=== PATIENT | female | born 1940 | race Caucasian/White ===

== ENCOUNTER 2018-07-14 16:57 | Inpatient (IN) ==
[2018-07-14] MEDS ORDERED: MORPHINE IV ONE (18:40)
[2018-07-14] MEDS: NS 1,000 ML IV SCH (19:10)
[2018-07-14 19:31] LABS: BASO# 0.01 X1000 (0.0-0.2); BASO% 0.1 % (0.0-0.8); HEMATOCRIT 20.2 % (37.0-47.0); HEMOGLOBIN 6.3 g/dL (12.0-16.0); IMM GRAN# 0.27 X1000 (0.0-0.04); IMM GRAN% 1.7 % (0.0-0.5); LYMPH# 0.73 X1000 (1.2-3.4); LYMPH% 4.5 % (20.5-51.1); MCH 27.5 PG (27-31); MCHC 31.2 g/dL (33-37); MCV 88.2 FL (81-99); MONO# 0.54 X1000 (0.11-0.59); MONO% 3.3 % (1.7-9.3); MPV 8.6 FL (7.4-10.4); NEUT# 14.76 X1000 (1.4-6.5); NEUT% 90.4 % (42.2-75.2); PLT 365 X1000 (130-400); RBC 2.29 XMIL (4.2-5.4); RDW 16.6 % (11.5-14.5); WBC 16.31 X1000 (4.8-10.8)
[2018-07-14 20:00] LABS: ALBUMIN 2.8 g/dL (3.5-5.0); CALCIUM 8.4 mg/dL (8.8-10.2); CREATININE 1.7 mg/dL (0.5-0.9); TOTAL BILIRUBIN 0.3 mg/dL (0.20-1.00); TOTAL PROTEIN 6.4 g/dL (6.3-8.3)
[2018-07-14 20:00] LABS: OCCULT BLOOD 1 NEGATIVE (NEGATIVE)
[2018-07-14 20:04] LABS: BILIRUBIN URINE NEGATIVE (NEGATIVE); BLOOD URINE 2+ (NEGATIVE); CLARITY VERY CLOUDY (CLEAR); COLOR YELLOW; GLUCOSE URINE NEGATIVE (NEGATIVE); KETONE URINE NEGATIVE (NEGATIVE); LEUKOCYTES URINE NEGATIVE (NEGATIVE); NITRITE URINE NEGATIVE (NEGATIVE); PROTEIN URINE 2+(100 mg/dL) mg/dL (NEGATIVE); UROBILINOGEN URINE NORMAL
[2018-07-14 20:10] LABS: URINE SOURCE CATH
[2018-07-14 20:11] LABS: URINE BACTERIA NEGATIVE /HFP; URINE CAST NONE SEEN /LPF; URINE CRYSTAL NONE SEEN /HPF; URINE EPITHELIAL CELLS <10 /HPF (<10); URINE RBC <10 /HPF (<10); URINE WBC <10 /HPF (<10); URINE YEAST NONE SEEN /HPF
[2018-07-14] MEDS ORDERED: ROCEPHIN 1 GM in NS 50 ML IV ONE (20:42)
[2018-07-14 21:38] LABS: INR 14.6; PROTIME 113.1 Seconds (11.0-16.0)
[2018-07-14] MEDS ORDERED: VITAMIN K PO ONE (22:05)
[2018-07-15] MEDS: NS 1,000 ML IV SCH ×4 (01:02→21:17)
[2018-07-15] MEDS ORDERED: MORPHINE IV ONE (01:35)
[2018-07-15 02:58] LABS: INR 3.62; PROTIME 37.7 Seconds (11.0-16.0)
--- NOTE | 2018-07-15 05:39 | Diag Imaging Result Doc PS360 ---
EXAM: CT ABD/PELVIS W/IV CONT ONLY HISTORY: abdominal pain TECHNIQUE: CT abdomen and pelvis with intravenous contrast COMPARISON: None. FINDINGS: There is a tiny left pleural effusion. There is a distal thoracic aortic stent with the distal thoracic aorta measuring approximately 4.2 x 3.9 cm. There is atelectasis in the left lower lobe. Small stones and sludge partially filling the gallbladder. No adjacent inflammation. There are small scattered hepatic cysts. There is also a tiny cyst within the spleen. A small amount of fluid is found about the liver and spleen. Normal pancreas and adrenal glands. The kidneys are atrophic. No hydronephrosis. Small left extrarenal pelvis and there are tiny renal cysts. Mixed density lesion in the right lower lateral abdominal wall measuring approximately 7.0 x 7.7 x 7.1 cm. There is a mixed density fluid level within. There are multiple smaller mixed density fluid collections along the anterior lower abdominal/pelvic wall. There is also a large mixed density fluid collection pelvis with a fluid fluid level. This large collection measures approximately 8.3 x 10.4 x 3.5 cm. This shows the bladder to the right. No bowel obstruction. The urinary bladder is only partly distended. The uterus has been removed. Prominent atherosclerosis. The aorta is mildly dilated measuring 3.2 cm in diameter distally. There is an inferior vena caval filter in good position. Surgical clips from the left inguinal region. Prominent right inguinal lymph node measuring 1.8 cm. Degenerative spine changes with mild scoliosis. Minimal subluxation of L4 on L5. IMPRESSION: 1.Multiple hematomas in the anterior and right lateral abdominal wall. There is an additional hematoma within the pelvis. 2.Small distal abdominal aortic aneurysm 3.Small amount of fluid about the liver and spleen 4.Small left pleural effusion 5.Cholelithiasis 6.Small scattered hepatic, renal, and splenic cysts 7.Atrophic kidneys 8.A preliminary report was given at 11:26 PM on 07/14/2018 This exam was performed using automated exposure control, adjustment of mA or kV according to patient size, and/or use of iterative reconstruction technique. Electronically signed by Mainor Bullard 07/15/2018 5:37 AM
[2018-07-15] MEDS: SYMBICORT 160/4.5 MICROGM INHALER INH SCH ×2 (07:51→20:25)
[2018-07-15] MEDS: LEXAPRO PO SCH (08:41)
[2018-07-15] MEDS: LAMICTAL PO SCH ×2 (08:41→21:16)
[2018-07-15] MEDS: ZONEGRAN PO SCH ×2 (08:41→21:17)
[2018-07-15] MEDS ORDERED: COREG PO SCH (09:00)
[2018-07-15] MEDS ORDERED: LASIX PO SCH (09:00)
[2018-07-15] MEDS ORDERED: MYRBETRIQ E.R. PO SCH (09:00)
[2018-07-15 10:08] LABS: HEMATOCRIT 13.3 % (37.0-47.0); HEMOGLOBIN 4.2 g/dL (12.0-16.0); MCH 28.2 PG (27-31); MCHC 31.6 g/dL (33-37); MCV 89.3 FL (81-99); MPV 8.3 FL (7.4-10.4); RBC 1.49 XMIL (4.2-5.4); RDW 16.6 % (11.5-14.5); WBC 17.28 X1000 (4.8-10.8)
[2018-07-15 10:38] LABS: ALBUMIN 2.5 g/dL (3.5-5.0); CALCIUM 7.6 mg/dL (8.8-10.2); CREATININE 2.3 mg/dL (0.5-0.9); POTASSIUM 4.1 mmol/L (3.5-5.1); TOTAL BILIRUBIN 0.3 mg/dL (0.20-1.00); TOTAL PROTEIN 5.6 g/dL (6.3-8.3)
[2018-07-15] MEDS ORDERED: NS 500 ML ONE (11:17)
[2018-07-15] MEDS ORDERED: NS 1,000 ML ONE (11:22)
[2018-07-15 12:00] LABS: INR 5.22; PROTIME 50.3 Seconds (11.0-16.0)
[2018-07-15 12:13] LABS: BILIRUBIN URINE NEGATIVE (NEGATIVE); BLOOD URINE 4+ (NEGATIVE); CLARITY BLOODY (CLEAR); COLOR RED; KETONE URINE TRACE mg/dL (NEGATIVE); LEUKOCYTES URINE NEGATIVE (NEGATIVE); NITRITE URINE NEGATIVE (NEGATIVE); SP GRAVITY URINE 1.005; UROBILINOGEN URINE NORMAL
[2018-07-15 12:14] LABS: URINE EPITHELIAL CELLS <10 /HPF (<10); URINE RBC TNTC /HPF (<10); URINE SOURCE CATH
--- NOTE | 2018-07-15 12:17 | HISTORY AND PHYSICAL ---
CHIEF COMPLAINT: Elevated INR. HISTORY OF PRESENT ILLNESS: This is a 77-year-old female with a history of CAD, aortic valve replacement on chronic anticoagulation, as well as chronic kidney disease with a baseline creatinine of 1.6. She presented to the emergency room to have her INR checked after being told it was high [facility]. Initial labs revealed INR was 14.6 with a hemoglobin of 6.3 and hematocrit of 20.2, She was given vitamin K 5 mg p.o. and 2 units of fresh frozen in the ER. Repeat INR 3.62. She reports being treated with Levaquin over the past week for a upper respiratory infection. CT scan of the abdomen and pelvis with IV contrast was performed, which revealed multiple hematomas in the abdominal wall, as well as a hematoma in the pelvis. She was admitted to the Medical/Surgical floor for further evaluation and treatment. PAST MEDICAL HISTORY: 1. CAD status post [place]. 2. Aortic valve replacement, on chronic anticoagulation. 3. Chronic kidney disease with a baseline creatinine 1.6. 4. Chronic obstructive pulmonary disease. 5. Hypertension. 6. History of bilateral lower extremity DVT. 7. Inferior vena caval filter. 8. Recent diagnosis of pneumonia, 07/10/2018, left lower lobe. PAST SURGICAL HISTORY: 1. Aortic valve replacement. 2. Stent for thoracic aortic aneurysm. 3. Coronary artery bypass graft. 4. Pacemaker placement. 5. Hysterectomy. 6. Bilateral shoulder repair. SOCIAL HISTORY: She lives with family members. She denies alcohol, tobacco, or illicit drug use. ALLERGIES: No known drug allergies. HOME MEDICATIONS: A list will be obtained by the nursing staff. Once verified, we will review and restart as appropriate. REVIEW OF SYSTEMS: Discussed with patient with pertinent positives stated in the HPI. She denied any syncope or dizziness, any chest pain, palpitations, any vomiting, diarrhea, black or bloody vomitus or stools, hematuria, dysuria, frequency, urgency. PHYSICAL EXAMINATION: GENERAL: This is a 77-year-old female, who is lying in the bed on the Medical/Surgical floor in no distress. VITAL SIGNS: Blood pressure is 91/44 with a heart rate of 80, respirations are 18, temperature is 97.7 degrees with room air saturations of 96% EYES: Pupils are equal, round, react to light. EOMs are intact. Sclerae anicteric. HENT: Head is normocephalic, atraumatic. Mucous membranes are moist. NECK: Supple with trachea midline. CARDIOVASCULAR: Regular rate and rhythm. S1 and S2 are appreciated. Aortic valve click is heard. She has no lower extremity edema with peripheral pulses palpable x4 extremities. Her calves are nontender to palpation. PULMONARY: Breath sounds are clear they are a little diminished in the left lower lobe. Chest rises and falls symmetrically with respiration. Chest wall is nontender to palpation. GASTROINTESTINAL: Abdomen is soft. It is tender to palpation, generally, increased in the lower quadrants bilateral. She does have bowel sounds in all 4 quadrants. SKIN: Warm and dry with no rashes or lesions noted. NEUROLOGIC: She is alert and oriented x3. DIAGNOSTIC STUDIES: WBC is 16.3, hemoglobin 6.3, hematocrit 20.2, platelets of 365,000. PT is 113.1, INR is 14.6. Sodium 138, potassium 4, BUN 32, creatinine 1.7 with a glucose of 138. Urinalysis is essentially negative. Stool for occult blood is negative. CT of the abdomen and pelvis revealed multiple hematomas in the anterior and right lateral abdominal wall as well as these measure 7 x 7.7 x 7.1, which is the largest as well as an 8.3 x 10.4 x 3.5 cm in the pelvis. A small distal abdominal aortic aneurysm. Vena cava filter is in good position. Small amount of fluid about the liver and spleen. Small left pleural effusion. Cholelithiasis. Scattered hepatic, renal, and splenic cysts. Atrophic kidneys. ASSESSMENT AND PLAN: 1. Abdominal wall hematomas secondary to supratherapeutic INR. We will repeat a stat CBC. We will also obtain a stat type and cross for 4 units of packed cells. We will transfuse 2, further will be driven by labs. 2. Supratherapeutic INR. Very likely elevated secondary to antibiotic use. The patient was prescribed Levaquin 07/10/2018 for left lower lobe pneumonia. We will repeat her INR this morning and treat accordingly. 3. Abdominal pain. This is secondary to hematomas. We will medicate as needed. 4. Leukocytosis. Very likely secondary to left lower lobe pneumonia diagnosed 07/10/2018. We will trend labs daily. 5. Left lower lobe pneumonia, recent diagnosis. We will start Rocephin and azithromycin and follow. 6. Chronic kidney disease with a baseline creatinine of 1.6. We will trend her labs and renal dose any medications. 7. Aortic valve replacement. Aware. 8. History of coronary artery disease (CAD). 9. Hypertension. 10. Seizure disorder with her last seizure being 07/13/2018. We will continue her home medications. 11. Hypotension. We will give IV hydration as well as transfuse. 12. IVC filter, aware 13. H/O DVT bilateral LE.\14. H/o thoracic aneurysm s/p repair. PLAN: We will move the patient to ICU. We will transfuse 2 units of packed cells urgently. Trend hemoglobin and hematocrit and transfuse as levels warrant. We will trend INR, if it begins to elevate, will give FFP. and Vitamin K. We will place a Terrell catheter, as her pelvic hematoma has displaced the bladder to the right, to assure emptying. She will remain NPO. I discussed the CT scan with dr Sammy Wei, general surgery. He recommended we call HH, IR for evaluation. Further treatment pending hospital course. Dictated by CHAY Hernandez for Lincoln Gomez MD This chart was documented by, CHAY Hernandez and accurately reflects the services performed, treatment plan and medical decisions as attested by the providers signature Lincoln Gomez MD. cc: CHAY Hernandez MD [facility]
[2018-07-15] MEDS ORDERED: ZOFRAN ONE (12:40)
[2018-07-15] MEDS ORDERED: VITAMIN K PO SCH (12:45)
[2018-07-15] MEDS: MORPHINE IV PRN ×3 (12:48→21:58)
[2018-07-15] MEDS: ZOFRAN IV PRN (13:00)
[2018-07-15 13:16] LABS: HEMATOCRIT 23.2 % (37.0-47.0); HEMOGLOBIN 7.1 g/dL (12.0-16.0)
[2018-07-15] MEDS ORDERED: VITAMIN K 10 MG in NS 50 ML IV ONE (13:30)
--- NOTE | 2018-07-15 14:04 | Diag Imaging Result Doc PS360 ---
EXAM: CT ABDOMEN/PELVIS W/O CONTRAST HISTORY: abdominal hematomas TECHNIQUE: CT abdomen and pelvis without contrast COMPARISON: 07/14/2018 FINDINGS: Small amount of fluid about the liver and spleen remains. No interval change in appearance of the organs in the upper abdomen. However contrast from the study performed earlier remains in the kidneys and collecting systems. No definite change in size in the right lateral abdominal wall hematoma. Anterior abdominal/pelvic wall hematomas remain and are fairly similar in size. Large pelvic hematoma is similar in size. There is a Terrell within the urinary bladder. It is compressed and pushed to the right. No bowel obstruction. IMPRESSION: No definite change in the size of the multiple abdominal and pelvic hematomas. This exam was performed using automated exposure control, adjustment of mA or kV according to patient size, and/or use of iterative reconstruction technique. Electronically signed by Mainor Bullard 07/15/2018 2:01 PM
[2018-07-15] MEDS ORDERED: LASIX IV ONE (15:22)
[2018-07-15 15:57] LABS: HEMATOCRIT 21.3 % (37.0-47.0); HEMOGLOBIN 6.7 g/dL (12.0-16.0); MCH 26.8 PG (27-31); MCHC 31.5 g/dL (33-37); MCV 85.2 FL (81-99); MPV 8.8 FL (7.4-10.4); RBC 2.5 XMIL (4.2-5.4); WBC 17.27 X1000 (4.8-10.8)
[2018-07-15 16:10] LABS: ALBUMIN 2.7 g/dL (3.5-5.0); CALCIUM 7.5 mg/dL (8.8-10.2); CREATININE 2.3 mg/dL (0.5-0.9); PHOSPHORUS 5.4 mg/dL (2.7-4.5); POTASSIUM 4.3 mmol/L (3.5-5.1)
[2018-07-15] MEDS: ZITHROMAX PO SCH (16:30)
[2018-07-15 16:46] LABS: INR 2.69; PROTIME 29.9 Seconds (11.0-16.0)
[2018-07-15] MEDS ORDERED: SODIUM CHLORIDE 0.9% INJ SCH (18:00)
--- NOTE | 2018-07-15 20:19 | PROVIDER DOCUMENTATION ---
This chart was entered by Isabella Cervantes Scribe, acting as scribe for Aubree Clayton MD. HPI-General Adult - General Chief Complaint: Abnormal Lab[s] Stated Complaint: CRITICAL LABS Time Seen by Provider: 07/14/18 17:55 Source: patient Allergies/Adverse Reactions: Patient Allergies Allergy/AdvReac Type Severity Reaction Status Date / Time No Known Allergies Allergy Verified 07/14/18 17:28 Home Medications: Home Medication List Medication Instructions Recorded Confirmed Last Taken Type Carvedilol [Coreg] 3.25 mg PO BID 02/02/15 07/15/18 07/07/15 History Trazodone [Desyrel] 50 mg PO QHS 07/07/15 07/15/18 07/06/15 History Zonisamide [Zonegran] 200 mg PO QHS 07/07/15 07/15/18 07/07/15 History Budesonide/Formoterol Inhaler 2 puff INH BID 04/18/17 07/15/18 Unknown History [Symbicort 160/4.5 Microgm Inhaler] Escitalopram Oxalate [Lexapro] 20 mg PO DAILY 04/18/17 07/15/18 Unknown History Lamotrigine [Lamictal] 100 mg PO BID 04/18/17 07/15/18 Unknown History Zonisamide 100 mg PO DAILY 04/18/17 07/15/18 Unknown History Furosemide 20 mg PO BID 07/15/18 07/15/18 Unknown History Mirabegron [Myrbetriq] 50 mg PO DAILY 07/15/18 07/15/18 Unknown History Simvastatin 40 mg PO QHS 07/15/18 07/15/18 Unknown History - History of Present Illness -Gen Adult Nature of Presenting Problems: 77 yof presents to ED c/o lower abdominal pain that started 2 days ago and is intermittent but sharp with no radiation. Pt states being nauseous and constipated but had BM last night after enema. Pt is tender bilaterally in RLQ & LLQ upon exam. Pt was seen at clinic today for Coumadin check and INR was 13 so clinic sent pt to ED to be evaluated. Pt denies bleeding. Location of Pain/Injury: reports: abdomen Pain Radiation: reports: no radiation Quality of Pain: reports: sharp Severity: reports: moderate Onset/Duration: reports: 2 days ago Timing: reports: still present Review of Systems - Adult - REVIEW OF SYSTEMS - ADULT Constitutional: reports: see HPI, other (Abnormal PT and INR). denies: chills, fever Eyes: reports: no symptoms reported Ears, Nose, Mouth & Throat: reports: no symptoms reported Cardiovascular: reports: no symptoms reported Respiratory: reports: no symptoms reported Gastrointestinal: reports: see HPI, abdominal pain, constipation, nausea. denies: hematemesis, diarrhea, difficulty swallowing, frequent heartburn, rectal bleeding, vomiting Genitourinary: reports: no symptoms reported Musculoskeletal: denies: bone pain, back pain, frequent leg cramps, joint pain, joint swelling, muscle weakness, neck pain Integumentary: reports: no symptoms reported Neurological: reports: no symptoms reported Psychiatric: reports: no symptoms reported Endocrine: reports: no symptoms reported Hematologic/Lymphatic: reports: no symptoms reported Past History - Adult - PAST MEDICAL HISTORY-ADULT Review of Records: reports: Nursing Assessment Review, Medications Reviewed Major Childhood Illnesses: reports: denies history Cardiovascular: reports: blood clots, CAD, HTN, heart valve problem, PA, pacemaker, other (aortic aneursym) Respiratory: reports: asthma Gastrointestinal: reports: denies history Obstetrical/Gynecological: reports: denies history Genitourinary: reports: denies history Musculoskeletal: reports: arthritis Neurological: reports: Seizures/Epilepsy (seizure yesterday) Endocrine/Immune: reports: denies history Other Conditions: reports: denies history - PRIOR SURGERIES/PROCEDURES Surgical/Procedure History: reports: recent surgery (stent placed fro aortic aneursym), CABG, pacemaker, hysterectomy, orthopedic (extremity) (bilateral shoulder replacement) - IMMUNIZATION STATUS Childhood Immunizations: See Nurse Assessment Flu Vaccine: See Nurse Assessment - FAMILY HISTORY Family History: reviewed, not pertinent - SOCIAL HISTORY Smoking: non-smoker Substance Use: none/never Physical Exam-General - PHYSICAL EXAM-ADULT Initial Vital Signs Reviewed: Yes - CONSTITUTIONAL General Appearance: alert, other (pale) - EYES Eyes: PERRL/EOMI, pale conjunctivae - HEAD, EARS, NOSE, MOUTH & THROAT HENMT: normocephalic/atraumatic, moist mucous membranes - NECK Neck: non-tender, full range of motion, supple - RESPIRATORY Respiratory: chest non-tender, lungs clear, normal breath sounds. negative: crackles, rales, rhonchi - CARDIOVASCULAR Cardiovascular: normal peripheral pulses, systolic murmur - GASTROINTESTINAL (ABDOMEN) Abdominal Exam: normal bowel sounds, guarding, tenderness (RLQ, LLQ). 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) - MUSCULOSKELETAL Back Exam: normal inspection, no CVA tenderness, no vertebral tenderness Extremity: normal range of motion, non-tender - SKIN Integumentary: normal color, normal turgor, warm/dry - NEUROLOGIC Neurologic: grossly normal Progress - PLAN OF CARE/RESULTS Progress/Plan/Lab Results: Vital Signs - 8 hr 07/14/18 17:06 Temperature 97.7 F Pulse Rate 80 Respiratory Rate 18 Blood Pressure 92/52 O2 Sat by Pulse Oximetry 99 Orders Category Date Time Status CBC WITH ELECTRONIC DIFF [HEME] Stat Lab 07/14/18 18:40 Uncollected CMP [COMPREHENSIVE METABOLIC PANEL] [CHEM] Stat Lab 07/14/18 18:40 Uncollected LIPASE [CHEM] Stat Lab 07/14/18 18:[address] W/POSS RFLX CULT [URINALYSIS] Stat Lab 07/14/18 18:41 Uncollected 0.9% Sodium Chloride Inj [Ns] 1,000 ml Med 07/14/18 18:45 Ordered IV 200 mls/hr Morphine Med 07/14/18 18:40 Discontinued 4 mg IV NOW ONE Result Diagrams: 07/15/18 15:33 07/15/18 15:33 - CT/MRI 1 CT Study: Abdomen, Pelvis Impression: Abnormal (Multiple hematomas seen within abdominal wall on the right , anterior pelvic wall and pelvis. Largest hematoma in the pelvis measures 9cm and has marked mass-effect upon urinary bladder. Status post thoracic aorta stent repair w/o evidence of endoleak along inferior aspect. Atherosclerotic abdominal aorta in aneurysmal measuring up to 3.2cm. Small amount of perihepatic and parasplenic fluid appears simple and may represent aseites. Small left plural effusion with overlying atelectasis.) - CONSULTS/PCP/HOSPITALIST Notification #1 *Consult/PCP/Hospitalist*: Dr. Gomez Time Discussed: 23:51 Consult Disposition: Admit (Accepted. patient Hx, PE and care discussed with Dr. Gomez.) Departure - Departure Date of Disposition Decision: 07/14/18 Time of Disposition Decision: 23:49 DIAGNOSIS: Supratherapeutic INR, Elevated serum creatinine Leukocytosis Qualifiers: Leukocytosis type: other Qualified Code(s): D72.828 - Other elevated white blood cell count Anemia Qualifiers: Anemia type: unspecified type Qualified Code(s): D64.9 - Anemia, unspecified Abdominal wall hematoma Qualifiers: Encounter type: initial encounter Qualified Code(s): S30.1XXA - Contusion of abdominal wall, initial encounter Disposition: ADMITTED INPATIENT 09 Certified Medical Emergency: Emergent Condition: Serious - Critical Care Note This patient required my direct & personal management of CC.: No Attestation - Physician/ YANET Attestation Patient care was provided by Advanced Practice Provider:: No The physician spent face to face time with patient:: Yes Advanced Practice Provider documentation review:: Supervising physician onsite and consulted in the evaluation and care of this patient. The physician did have a face to face encounter with the patient. This chart was documented by the indicated scribe, (Isabella Cervantes Scribe) and accurately reflects the services I performed and decisions made by me, Aubree Clayton MD, as attested by the provider's signature.
[2018-07-15 20:34] LABS: HEMATOCRIT 24.3 % (37.0-47.0); HEMOGLOBIN 7.8 g/dL (12.0-16.0)
[2018-07-15 20:50] LABS: ALBUMIN 2.7 g/dL (3.5-5.0); CALCIUM 7.5 mg/dL (8.8-10.2); CREATININE 2.6 mg/dL (0.5-0.9); PHOSPHORUS 5.8 mg/dL (2.7-4.5); POTASSIUM 4.4 mmol/L (3.5-5.1)
[2018-07-15] MEDS: ROCEPHIN 1 GM in NS 50 ML IV SCH (21:15)
[2018-07-15] MEDS: ZOCOR PO SCH (21:16)
[2018-07-15] MEDS: DESYREL PO SCH (21:16)
[2018-07-15] MEDS: PROTONIX IV SCH (21:17)
[2018-07-15 21:23] LABS: INR 1.7; PROTIME 20.8 Seconds (11.0-16.0)
--- NOTE | 2018-07-16 00:49 | HISTORY AND PHYSICAL ---
ADDENDUM: Patient seen and examined by myself. Full note dictated and discussed with nurse practitioner. Patient unfortunately is a quite ill female who has been on Coumadin for quite some time. She is being followed by the [facility]. She apparently was recently sick, was placed on Levaquin, had her INR rechecked and it was noted to be 13, therefore, she was told to come to the ER. On recheck it is still elevated at 14. She was given fresh frozen plasma as well as I believe vitamin K in the ER. This morning her INR is down to 3.5. She notes that she has had bilateral lower extremity swelling as well as bilateral lower quadrant abdominal pain for the past 2 or 3 days. Denies any free bleeding or bruising. States she has had nausea and greatly decreased appetite. PLAN: We will admit patient to the hospital, place her in the ICU as she does have 2 hematomas in her bilateral lower quadrants. Her INR is elevated. We will give her more fresh frozen plasma, type, cross and transfuse. Her hemoglobin and hematocrit has actually dropped from 6 last night to 4 this morning. She does not actively having any acute bleeding, although it is very likely and possible that she is having some acute bleeding in the hematoma areas. We will ask surgery to evaluate and give opinion. Thankfully patient is awake, alert. She is tolerating very well. Denies any chest pain. Denies any confusion. Please see full note. cc: Lincoln Gomez MD
[2018-07-16 00:58] LABS: HEMOGLOBIN 8.5 g/dL (12.0-16.0)
[2018-07-16 01:22] LABS: INR 1.54; PROTIME 19.2 Seconds (11.0-16.0)
[2018-07-16 02:04] LABS: ALBUMIN 2.6 g/dL (3.5-5.0); CALCIUM 7.3 mg/dL (8.8-10.2); CREATININE 2.6 mg/dL (0.5-0.9); PHOSPHORUS 5.9 mg/dL (2.7-4.5); POTASSIUM 4.2 mmol/L (3.5-5.1)
[2018-07-16] MEDS: NS 1,000 ML IV SCH ×2 (06:30→18:19)
[2018-07-16 06:45] LABS: ALBUMIN 2.7 g/dL (3.5-5.0); CALCIUM 7.4 mg/dL (8.8-10.2); CREATININE 2.9 mg/dL (0.5-0.9); PHOSPHORUS 6.2 mg/dL (2.7-4.5); POTASSIUM 4.3 mmol/L (3.5-5.1); TOTAL BILIRUBIN 0.5 mg/dL (0.20-1.00); TOTAL PROTEIN 5.7 g/dL (6.3-8.3)
[2018-07-16 07:08] LABS: BASO# 0.02 X1000 (0.0-0.2); BASO% 0.1 % (0.0-0.8); EOS# 0.01 X1000 (0.0-0.7); HEMATOCRIT 25.2 % (37.0-47.0); HEMOGLOBIN 8.2 g/dL (12.0-16.0); IMM GRAN% 3.5 % (0.0-0.5); LYMPH# 1.01 X1000 (1.2-3.4); MCH 27.8 PG (27-31); MCHC 32.5 g/dL (33-37); MCV 85.4 FL (81-99); MONO# 1.37 X1000 (0.11-0.59); MONO% 6.8 % (1.7-9.3); NEUT# 17.02 X1000 (1.4-6.5); NEUT% 84.6 % (42.2-75.2); PLT 232 X1000 (130-400); RBC 2.95 XMIL (4.2-5.4); RDW 16.5 % (11.5-14.5); WBC 20.13 X1000 (4.8-10.8)
[2018-07-16] MEDS: SYMBICORT 160/4.5 MICROGM INHALER INH SCH ×2 (08:12→19:03)
[2018-07-16 08:48] LABS: BANDS 2 % (0-1); LYMPHS 10 % (21-51); MONO 5 % (1-9); SEGS 83 % (42-75)
--- NOTE | 2018-07-16 08:51 | GENERAL SURGERY CONSULTATION ---
DATE: 07/16/2018 REQUESTING PHYSICIAN: Dr. Gomez REASON FOR CONSULTATION: Abdominal wall hematoma. HISTORY OF PRESENT ILLNESS: A 77-year-old female with history of coronary artery disease, aortic valve replacement, chronic kidney disease, presenting with an elevated INR and abdominal pain. She had been seen in the [facility] and had an elevated INR, with her INR being 14 and hematocrit being 20. She had a CT scan that showed multiple abdominal wall hematomas. She has been admitted, and her coagulopathy has been reversed and she has been given blood. She is currently without much complaints. PAST MEDICAL HISTORY: 1. Coronary artery disease status post [place]. 2. Aortic valve replacement. 3. Chronic kidney disease. 4. COPD. 5. Hypertension. 6. History of bilateral lower extremity deep venous thrombosis. 7. History of IVC filter. 8. History of pneumonia. PAST SURGICAL HISTORY: 1. Aortic valve replacement. 2. Stent free abdominal aortic or thoracic aortic aneurysm. 3. Coronary artery bypass. 4. Pacemaker placement. 5. Hysterectomy. 6. Bilateral shoulder repair. 7. IVC filter placement. SOCIAL HISTORY: Lives with family members. ALLERGIES: None. HOME MEDICATIONS: Reviewed. REVIEW OF SYSTEMS: A full 10-point review of systems obtained. Negative as specified in HPI. FAMILY HISTORY: Reviewed with patient, noncontributory. PHYSICAL EXAMINATION: Vital Signs: The patient is currently afebrile. Vital signs are stable. General: No acute distress. HEENT: Normocephalic, atraumatic. Pupils equal, round, reactive to light. Mucous membranes moist. Oropharynx benign. Neck: Supple. Trachea midline. Cardiovascular: Regular rate and rhythm. Lungs: Grossly clear. Abdomen: Soft. Some tenderness but no peritoneal signs. Extremities: Moves all extremities. Neurologic: Grossly intact. Skin: No signs of jaundice. Vascular: All extremities perfused. LABORATORY: Reviewed. Of note, hematocrit is 25. INR is 1.54. Remainder of labs reviewed. CT scan independently reviewed and radiology report reviewed. ASSESSMENT AND PLAN: A 77-year-old female with abdominal wall hematomas. 1. Abdominal wall hematomas. At this time, recommend monitoring hematocrit. No surgical intervention planned at this time. If she has continues to bleed, may need to consider interventional radiology. 2. Elevated creatinine. She has baseline of just above 1, now it is 2.9. This might be related to contrast given during initial CT scan. Recommend continued resuscitation and monitoring. cc: Lul Wei MD
[2018-07-16] MEDS: ZONEGRAN PO SCH ×2 (09:12→21:01)
[2018-07-16] MEDS: ZITHROMAX PO SCH (09:12)
[2018-07-16] MEDS: LEXAPRO PO SCH (09:13)
[2018-07-16] MEDS: LAMICTAL PO SCH ×2 (09:14→21:01)
[2018-07-16] MEDS: PROTONIX IV SCH ×2 (09:27→18:18)
[2018-07-16] MEDS: MORPHINE IV PRN (09:54)
[2018-07-16] MEDS: ZOFRAN IV PRN ×2 (10:10→21:14)
[2018-07-16] MEDS: ROCEPHIN 1 GM in NS 50 ML IV SCH (21:01)
[2018-07-16] MEDS: ZOCOR PO SCH (21:01)
[2018-07-16] MEDS: DESYREL PO SCH (21:01)
--- NOTE | 2018-07-17 00:16 | PROGRESS NOTE ---
DATE: 07/16/2018 SUBJECTIVE: The patient overall states that she feels tremendously better. Still having some pain in the bilateral quadrant in her abdomen, but notes that it is much better. Denies any fevers or chills. Denies any headaches, blurred vision. Denies any focalized weakness. PHYSICAL EXAM: Vital signs: Temperature 98.2 degrees, pulse 86, respiratory 17, BP 131/65. General: Patient is awake, alert, very pleasant to talk with. She is in no respiratory distress. HEENT: Normocephalic. Neck: Supple. Cardiovascular: Regular rate. Chest: Clear, nonlabored. No crackles. Abdomen: Soft, diffusely tender in the bilateral lower quadrants, but overall improved. Extremities: Moves all extremities. ASSESSMENT: 1. Abdominal wall hematomas, appears stable. 2. Super therapeutic INR secondary to Coumadin, much improved. INR is down to 1.5. 3. Anemia. Hemoglobin and hematocrit is stable at 8 and 25 after, I believe, 4 units of total transfusion. 4. Acute on chronic renal failure. The patient's BUN and creatinine both are elevated but thankfully stable. Certainly expect that she is going to develop acute tubular necrosis. She has had contrast in her abdomen close to 24 hours after her previous contrasted study. 5. Chronic kidney disease. 6. Left lower lobe pneumonia. 7. Aortic valve replacement. PLAN: At this point, we will continue to hold patient's Coumadin as she has recently had a significant drop her hemoglobin and hematocrit, although at the time her INR was approximately 13 to 14. We will continue to follow. Thankfully, she has improved. Her hemoglobin and hematocrit is stable. Discussed with her and the daughter the importance of not starting back the Coumadin yet, although that does increase her risk of clotting. However, given her recent bleed, Coumadin would be contraindicated, as would all anticoagulants. We will continue to follow, recheck her labs in the a.m. Further orders as needed. cc: Lincoln Gomez MD
[2018-07-17] MEDS: MORPHINE IV PRN (02:16)
[2018-07-17] MEDS: ZOFRAN IV PRN (02:22)
[2018-07-17] MEDS: PROTONIX IV SCH ×2 (05:36→17:22)
[2018-07-17] MEDS: NS 1,000 ML IV SCH ×2 (05:53→20:24)
--- NOTE | 2018-07-17 06:09 | GENERAL SURGERY PROGRESS NOTE ---
DATE: 07/17/2018 SUBJECTIVE: Patient seems to be doing okay today. OBJECTIVE: Vital Signs: Patient is currently afebrile. Her vital signs are stable. General: No acute distress. HEENT: Normocephalic, atraumatic. Pupils equal, round, reactive to light. Mucous membranes moist. Oropharynx benign. Neck: Supple. Trachea midline. Cardiovascular: Regular rate and rhythm. Lungs: Grossly clear. Abdomen: Soft, nontender, nondistended. No peritoneal signs. Extremities: Moves all extremities. Neurologic: Grossly intact. Skin: No signs of jaundice. Vascular: All extremities perfused. LABORATORY: Hematocrit seems to be stable, most recent one was yesterday morning at 25. Creatinine has been increasing to 2.9, and urine output has been low. ASSESSMENT AND PLAN: A 77-year-old female status post spontaneous abdominal wall hematomas secondary to supratherapeutic INR. 1. Abdominal wall hematomas. At this time, continue to monitor her. Nothing surgical to add at this point. Continue to resuscitate her as much as possible. 2. Acute on chronic renal failure. At this time, patient's BUN and creatinine are elevated. Her urine output has been low. This weekend if she needs a Vas-Cath placement for dialysis, my partners are available. Otherwise, I will follow her up peripherally. cc: Lul Wei MD
[2018-07-17 06:55] LABS: BASO# 0.02 X1000 (0.0-0.2); BASO% 0.1 % (0.0-0.8); EOS# 0.02 X1000 (0.0-0.7); EOS% 0.1 % (0.0-10.0); HEMATOCRIT 21.7 % (37.0-47.0); HEMOGLOBIN 6.9 g/dL (12.0-16.0); IMM GRAN# 0.42 X1000 (0.0-0.04); IMM GRAN% 2.6 % (0.0-0.5); LYMPH% 4.3 % (20.5-51.1); MCH 28.8 PG (27-31); MCHC 31.8 g/dL (33-37); MCV 90.4 FL (81-99); MONO# 0.91 X1000 (0.11-0.59); MONO% 5.6 % (1.7-9.3); MPV 8.4 FL (7.4-10.4); NEUT# 14.17 X1000 (1.4-6.5); NEUT% 87.3 % (42.2-75.2); PLT 147 X1000 (130-400); RDW 17.7 % (11.5-14.5); WBC 16.24 X1000 (4.8-10.8)
[2018-07-17 07:20] LABS: ALBUMIN 2.3 g/dL (3.5-5.0); CREATININE 3.7 mg/dL (0.5-0.9); PHOSPHORUS 5.3 mg/dL (2.7-4.5); POTASSIUM 4.1 mmol/L (3.5-5.1)
[2018-07-17 07:35] LABS: CALCIUM 7.1 mg/dL (8.8-10.2)
[2018-07-17] MEDS ORDERED: NS 250 ML ONE (07:47)
[2018-07-17 08:15] LABS: LYMPHS 6 % (21-51); MONO 5 % (1-9); SEGS 89 % (42-75)
[2018-07-17 08:16] LABS: ANISOCYTOSIS 1+; POIKILOCYTOSIS 1+
[2018-07-17] MEDS: SYMBICORT 160/4.5 MICROGM INHALER INH SCH ×2 (08:17→19:50)
[2018-07-17] MEDS: LEXAPRO PO SCH (09:10)
[2018-07-17] MEDS: ZONEGRAN PO SCH ×2 (09:11→20:23)
[2018-07-17] MEDS: LAMICTAL PO SCH ×2 (09:11→20:24)
[2018-07-17] MEDS: ZITHROMAX PO SCH (09:11)
[2018-07-17 19:22] LABS: UR CREAT RANDOM 51.8 mg/dL (11-20); UR PROT RANDOM > 600.0 mg/dL; UR SODIUM 68 mmoll
[2018-07-17] MEDS: ROCEPHIN 1 GM in NS 50 ML IV SCH (20:23)
[2018-07-17] MEDS: DESYREL PO SCH (20:24)
[2018-07-17] MEDS: ZOCOR PO SCH (20:24)
--- NOTE | 2018-07-17 21:32 | NEPHROLOGY CONSULTATION ---
DATE: 07/17/2018 REASON FOR ADMISSION: Elevated INR. REASON FOR REQUEST: Acute kidney injury on CKD stage 3. CONSULTING PHYSICIAN: Is Dr. Patricia Santiago. HPI: Ms. Saunders is a 77-year-old white female who has known CKD with a baseline creatinine of 1.4 to 1.6. She is followed by her primary care Dr. Juan Morton in [place]. The patient has a pacemaker and has been [facility] for INR checks per Dr. Vázquez, cuff cutter in [place]. The patient had complained of a lower abdominal pain with nausea for 48 hours. It appears that she was placed on Levaquin after going to a walk-in clinic and found that her INR was 14.6 with a hemoglobin of 6.3. The patient was given vitamin K upon arrival p.o., 2 units of fresh frozen plasma. Repeat INR 6 hours later was down to 3.62. CT scan of the abdomen and pelvis with IV contrast was performed which revealed multiple hematomas in the abdominal wall and hematoma of the pelvis. This was evaluated by Dr. Wei and felt that we just needed to give patient fluid resuscitation and monitor. She was admitted to the medical- surgical floor. Due to patient's anticoagulation, blood levels being low this a.m, she was subsequently transferred to ICU for further monitoring and evaluation. Today it was found that her hemoglobin was 6.9 with hematocrit of 21.7. She was transfused 2 units of packed red blood cells this a.m. Creatinine has bumped from 2.9 to 3.7 with a BUN of 53. Her urine output has dropped off in the last 24 to 48 hours. She is currently 10 L positive. The patient denies chest pain. She states that she has a history of esophageal strictures and has received Botox injections at a office in [place]. She does have a congested cough, faint crackles bibasilar posterior on O2 supplementation. She denies any nausea or vomiting but states that she gets choked eating most of the time. There is no fever or chills documented. No chest pain. Positive abdominal discomfort. Positive for increased work of breathing. Trace lower extremity edema. PAST MEDICAL HISTORY: Coronary artery disease status post NM, aortic valve replacement on chronic anticoagulation, she has a pacemaker placed, chronic kidney disease stage 3 baseline creatinine 1.6, chronic obstructive pulmonary disease, hypertension, history of bilateral lower extremity DVT, inferior vena cava filter, recent diagnosis of pneumonia left lower lobe on 07/10/2018. PAST SURGICAL HISTORY: Aortic valve replacement, stent for abdominal aortic aneurysm, coronary artery bypass graft, pacemaker placement, hysterectomy, bilateral shoulder surgery. SOCIAL HISTORY: She lives with family member. She denies any tobacco, alcohol or illicit drug use. FAMILY HISTORY: Negative for kidney disease. ALLERGIES: No known drug allergies. HOME MEDICATIONS: Coreg, Desyrel, Zonegran, Lexapro, Lamictal, zonisamide, Symbicort, Myrbetriq, simvastatin, furosemide and clotrimazole. REVIEW OF SYSTEMS: Times 10 with pertinent positives listed above in the HPI. VITAL SIGNS: Most recent. Temperature 97.8 degrees, blood pressure 111/75, her heart rate is 77, respirations are 22, she is on 2 L nasal cannula, last recorded saturation 99%. Patient has had 3180 mL in, 190 mL out to her Terrell catheter. LABS: Sodium is 140, potassium 4.1, chloride 109, CO2 15, BUN 53, creatinine 3.7, glucose 98, her anion gap is 16, calcium is 7.1, phosphorus 5.3, her albumin is down to 2.3. White count 16.24, hemoglobin 6.9, hematocrit 21.7, platelet count 147,000. Her PT is 19.2 with an INR of 1.54 yesterday a.m. Again patient had an abdominal and pelvis CT. This was without contrast on 07/14/2018 indicating no definite change to hematomas, abdominal and pelvis CT earlier with IV contrast indicates multiple hematomas, small distal abdominal aortic aneurysm, small amount of fluid in the liver and the spleen, small pleural effusions, cholelithiasis, scattered hepatic renal and splenic cysts, atrophic kidneys, preliminary was given appears that the kidneys have not been measured though they appear without hydronephrosis or mass. PHYSICAL EXAMINATION: General: This is a 77-year-old white female. She is resting quietly in bed. She appears chronically ill. She is in mild distress secondary to a fit of coughing on water. HEENT: Normocephalic, atraumatic. Conjunctiva is pale pink. She has DAY. Mucous membranes are moist. Neck: Supple. Trachea midline. She has no evidence of JVD in the upright position. Cardiovascular: She is regular rate and rhythm. There is no appreciable murmur or gallop. Lungs: Again have fine bibasilar crackles but patient is also choking on water. She remains on O2 equal excursion. Abdomen: Soft, diffusely tender. Hypo bowel sounds. Genitourinary: Terrell catheter is in place. Minimal urine out. Extremities: Is able to move all extremities well. No clubbing or cyanosis lower extremities. No edema present. Neurological: She is alert to person and to place though she is hard of hearing. ASSESSMENT AND PLAN: 1. Acute kidney injury on chronic kidney disease stage 3. Patient's baseline creatinine is known to be 1.4 to 1.6. The patient has received intravenous contrast. She has had hypotensive episode noted on 07/16. She is currently on renal dosed antibiotics. We will check urine electrolytes and a renal in the a.m. Continue to monitor strict I's and O's. No acute indication for hemodialysis at this time. I have spoken to the family that we will be watching her labs, watching her urine output and that she may require a bridging of hemodialysis during this hospital stay. They state understanding. 2. Electrolytes and acid-base balance. Patient remains acidotic. She is taking p.o. fluid well. We will start her on sodium bicarbonate tablets b.i.d., 1st dose to start this evening. 3. Anemia. Patient had a hemoglobin of 6.9. She was transfused with 2 units of packed red blood cells today. Evaluate labs in the a.m. 4. Pneumonia. Patient is currently on azithromycin and Rocephin. I would like to thank you for allowing us to follow with this patient. Dictated by CHAY King for Vasiliy Estrada MD cc: CHAY King MD [facility]
--- NOTE | 2018-07-18 01:04 | PROGRESS NOTE ---
DATE: 07/17/2018 SUBJECTIVE: Patient notes overall she is doing okay. Still having bilateral lower quadrant pain, occasional nausea. PHYSICAL EXAMINATION: Vital Signs: Temperature 97.9 degrees, pulse 78, respiratory 20, BP 124/57. General: Patient is awake. She is in no current respiratory distress although she is somewhat ill appearing today compared to yesterday, still mild. HEENT: Normocephalic. Neck: Supple. Cardiovascular: Regular rate. Chest: Clear and nonlabored. Patient denies any diarrhea or constipation. Denies any blood in her stool. The staff has noted that she has been confused at times. PHYSICAL EXAMINATION: Vital Signs: Temperature 97.9 degrees, pulse 78, respiratory 18, BP 124/57. General: Patient is very pleasant to talk with. She is in no current respiratory distress although is somewhat confused. HEENT: Normocephalic. Neck: Supple. Cardiovascular: Regular rate. Chest: Clear and nonlabored. Abdomen: Soft, nondistended. Tender in bilateral lower quadrants. No flank pain. Extremities: Moves all extremities. No edema. ASSESSMENT: 1. Anemia. She has received a couple units in transfusion. 2. Acute on chronic renal failure. Serum creatinine continues to elevate. 3. Abdominal wall hematomas. 4. Suprapubic INR, likely caused by Levaquin. Her INR has been essentially reversed. 5. Abdominal pain. 6. Leukocytosis. 7. Left lower lobe pneumonia. 8. Acute anemia. PLAN: We will continue patient in the hospital. Continue to follow. Ask Dr. Estrada with Nephrology to evaluate her kidney function. Certainly appears as though this may get worse due to ATN. She has had very little urine output despite having large volume in her IV. She currently is almost 10 L positive. We will continue to follow and further orders as needed. cc: Lincoln Gomez MD
[2018-07-18] MEDS: PROTONIX IV SCH ×2 (06:13→18:07)
[2018-07-18] MEDS: MORPHINE IV PRN (06:13)
[2018-07-18 06:29] LABS: EOS# 0.06 X1000 (0.0-0.7); EOS% 0.5 % (0.0-10.0); HEMATOCRIT 25.8 % (37.0-47.0); HEMOGLOBIN 8.5 g/dL (12.0-16.0); IMM GRAN% 2.3 % (0.0-0.5); LYMPH# 0.53 X1000 (1.2-3.4); LYMPH% 4.1 % (20.5-51.1); MCH 28.7 PG (27-31); MCHC 32.9 g/dL (33-37); MCV 87.2 FL (81-99); MONO# 0.74 X1000 (0.11-0.59); MONO% 5.7 % (1.7-9.3); NEUT# 11.25 X1000 (1.4-6.5); NEUT% 87.4 % (42.2-75.2); PLT 105 X1000 (130-400); RBC 2.96 XMIL (4.2-5.4); RDW 16.5 % (11.5-14.5); WBC 12.88 X1000 (4.8-10.8)
[2018-07-18 06:44] LABS: INR 1.55; PROTIME 19.3 Seconds (11.0-16.0)
[2018-07-18 06:54] LABS: ALBUMIN 2.3 g/dL (3.5-5.0); CALCIUM 7.1 mg/dL (8.8-10.2); CREATININE 4.1 mg/dL (0.5-0.9); PHOSPHORUS 5.8 mg/dL (2.7-4.5); POTASSIUM 4.2 mmol/L (3.5-5.1)
[2018-07-18 07:05] LABS: LYMPHS 6 % (21-51); MONO 5 % (1-9); SEGS 89 % (42-75)
[2018-07-18] MEDS: SYMBICORT 160/4.5 MICROGM INHALER INH SCH ×2 (08:07→20:13)
[2018-07-18] MEDS: NS 1,000 ML IV SCH (09:55)
[2018-07-18] MEDS: LEXAPRO PO SCH (09:58)
[2018-07-18] MEDS: ZITHROMAX PO SCH (09:58)
[2018-07-18] MEDS: LAMICTAL PO SCH (09:58)
[2018-07-18] MEDS: ZONEGRAN PO SCH ×2 (09:58→20:26)
[2018-07-18] MEDS ORDERED: BLISTEX MEDICATED BERRY LIP BALM TOP PRN (10:42)
[2018-07-18 12:44] LABS: BASO# 0.01 X1000 (0.0-0.2); BASO% 0.1 % (0.0-0.8); EOS# 0.04 X1000 (0.0-0.7); EOS% 0.3 % (0.0-10.0); HEMATOCRIT 26.3 % (37.0-47.0); HEMOGLOBIN 8.8 g/dL (12.0-16.0); LYMPH# 0.54 X1000 (1.2-3.4); LYMPH% 3.6 % (20.5-51.1); MCH 28.9 PG (27-31); MCHC 33.5 g/dL (33-37); MCV 86.5 FL (81-99); MONO% 5.4 % (1.7-9.3); MPV 9.1 FL (7.4-10.4); NEUT# 13.12 X1000 (1.4-6.5); NEUT% 88.6 % (42.2-75.2); PLT 109 X1000 (130-400); RBC 3.04 XMIL (4.2-5.4); RDW 16.7 % (11.5-14.5); WBC 14.81 X1000 (4.8-10.8)
--- NOTE | 2018-07-18 16:23 | NEPHROLOGY PROGRESS NOTE ---
DATE: 07/18/2018 TIME SEEN: 10 a.m. SUBJECTIVE: Ms. Saunders is resting quietly in bed. The head of her bed is elevated. She is on O2. Saturations are 100%, though she complains of increased work of breathing. Her family is currently at her bedside. OBJECTIVE: Vital signs: Most recent vital signs are temperature 98.5, blood pressure 120/70, heart rate 74, respirations 21. She is on 2 L nasal cannula, and last recorded saturation is 100%. She has had 2635 in, 175 mL out, with continued greater than 10 L positive. General: This is a 77-year-old white female. She is sitting up in bed. She appears chronically ill. No acute distress. Skin is warm and dry. HEENT: Normocephalic and atraumatic. Conjunctivae are pale. She has PERRL. Mucous membranes are moist are dry. Neck is supple. Trachea midline. The patient has positive JVD today in the upright positive. Cardiovascular: She is regular rate and rhythm. The patient continues with pacemaker on the monitor, 100% paced. Lungs: Bibasilar crackles. Remains on O2, equal excursion. Abdomen is soft, diffusely tender. Hypoactive bowel sounds. Genitourinary: Terrell catheter is in place with minimal urine out documented. She remains in fluid volume overload. Extremities: She has no edema present. No clubbing or cyanosis. Neurologic: Alert to person and to people at her bedside. She is unaware of recent events. DIAGNOSTIC DATA: Sodium is 142, potassium 4.2, chloride is 111, CO2 is 16, BUN is 56, creatinine 4.1, glucose 97. Her anion gap is 16, calcium 7.1, phosphorus 5.8, albumin 2.3. White count is 12.89, hemoglobin 8.5, hematocrit 25.8, platelet count 105. The patient's FENa with her urine electrolytes indicated ATN with FENa of 34.69%, negative for eosinophils. ASSESSMENT AND PLAN: 1. Acute kidney injury on chronic kidney disease stage 3. The patient's baseline creatinine is 1.4 to 1.6. BUN and creatinine are elevated at 56 and 4.1, respectively. Diminished urine output continues. More than likely, this is ATN secondary to IV contrast associated with hypovolemia in the context of elevated INR and bleeding. We have discussed possible transfer to [facility] for eventual possibility of dialysis for bridging during this hospitalization. The family states that they would like her transferred to [place] secondary to her primary care physician and her hris manager being in [place]. Dr. Gomez is aware. We will defer to him for possible transfer. We will continue to monitor her labs and urine output. 2. Electrolytes and acid base balance. The patient remains acidotic, CO2 of 16. Her anion gap remains stable. 3. Anemia. The patient's hemoglobin is stable at 8.5 after 2 units of packed red blood cells yesterday. 4. Pneumonia. She remains on azithromycin and Rocephin renally dosed. I would like to thank you for allowing us to follow with this patient. Dictated by CHAY King for Vasiliy Estrada MD cc: CHAY King MD [facility]
[2018-07-18] MEDS: DESYREL PO SCH (20:25)
[2018-07-18] MEDS: ROCEPHIN 1 GM in NS 50 ML IV SCH (20:26)
[2018-07-18] MEDS: ZOFRAN IV PRN (20:26)
--- NOTE | 2018-07-19 01:15 | PROGRESS NOTE ---
DATE: 07/18/2018 SUBJECTIVE: The patient herself notes she feels okay. She is getting a little short of breath at times and then feels better at times. Denies any constipation, melena, hematochezia. Denies any pain anywhere. States her bilateral lower quadrant abdominal pain has improved. In fact, the area seems to have resolved. PHYSICAL EXAMINATION: Vital Signs: Temperature 97.7 degrees, pulse 63, respiratory 14, BP 111/54. General: Patient is awake, alert, currently in no respiratory distress. HEENT: Normocephalic. Neck: Supple. Cardiovascular: Regular rate. Chest: Clear. Abdomen: Soft, nondistended. Her bilateral lower quadrant abdominal pain seemingly has resolved. She is no longer full in that area either. ASSESSMENT: 1. Acute on chronic renal failure. 2. Hypercoagulopathy, resolved, iatrogenically caused with Coumadin and blood pressure medicine. 3. Abdominal pain, improved. 4. Leukocytosis, improved. 5. Metabolic acidosis secondary to renal dysfunction. 6. Aortic valve replacement. 7. Hypertension. 8. Seizure disorder. PLAN: Overall, patient has continued to slowly improve. Her hemoglobin and hematocrit have remained stable for the past 2 days. Patient will need endoscopy but not until we are able to transfer her either to [place], which currently is on diversion, or to [facility]. Currently she is approximately 10 L positive. She is still having very minimal urine output, but is tolerating it well. Her BUN is in the 50s. Her blood pressure, O2 saturation, and clinical are still stable. When it comes to hemodialysis, at this point we will wait until either her BUN increases or she starts to develop symptoms. The patient does have a history of aortic valve and certainly needs to be back on anticoagulation. We are continuing to hold it today. Her hemoglobin and hematocrit have remained stable at 8 and 25. She has received 6 total units of blood although I do not believe this was from a GI source. Therefore, endoscopy may be of little help. Hopefully, she will not have to go on dialysis. Tomorrow we will start her back on Lovenox as she certainly may need to have a Vas-Cath placed. cc: Lincoln Gomez MD
[2018-07-19] MEDS: MORPHINE IV PRN (05:24)
[2018-07-19] MEDS: PROTONIX IV SCH ×3 (05:25→20:22)
[2018-07-19 06:10] LABS: BASO# 0.01 X1000 (0.0-0.2); BASO% 0.1 % (0.0-0.8); EOS# 0.07 X1000 (0.0-0.7); EOS% 0.5 % (0.0-10.0); HEMATOCRIT 27.5 % (37.0-47.0); IMM GRAN# 0.27 X1000 (0.0-0.04); IMM GRAN% 1.8 % (0.0-0.5); LYMPH# 0.68 X1000 (1.2-3.4); LYMPH% 4.4 % (20.5-51.1); MCH 28.5 PG (27-31); MCHC 32.7 g/dL (33-37); MONO# 0.92 X1000 (0.11-0.59); MPV 9.2 FL (7.4-10.4); NEUT# 13.44 X1000 (1.4-6.5); NEUT% 87.2 % (42.2-75.2); PLT 112 X1000 (130-400); RBC 3.16 XMIL (4.2-5.4); WBC 15.39 X1000 (4.8-10.8)
[2018-07-19 06:11] LABS: LYMPHS 5 % (21-51); MONO 5 % (1-9); SEGS 90 % (42-75)
[2018-07-19 06:26] LABS: ALBUMIN 2.4 g/dL (3.5-5.0); CALCIUM 7.7 mg/dL (8.8-10.2); CREATININE 3.9 mg/dL (0.5-0.9); POTASSIUM 4.3 mmol/L (3.5-5.1)
[2018-07-19] MEDS: SYMBICORT 160/4.5 MICROGM INHALER INH SCH ×2 (08:05→19:17)
[2018-07-19] MEDS: ZITHROMAX PO SCH (09:56)
[2018-07-19] MEDS: ZONEGRAN PO SCH ×2 (09:56→20:15)
[2018-07-19] MEDS: LEXAPRO PO SCH (09:56)
[2018-07-19] MEDS ORDERED: SODIUM BICARBONATE PO SCH (10:00)
[2018-07-19] MEDS ORDERED: LASIX IV ONE ×2 (11:42→12:30)
--- NOTE | 2018-07-19 14:20 | NEPHROLOGY PROGRESS NOTE ---
DATE: 07/19/2018 SUBJECTIVE: Ms. Saunders is resting quietly in bed. Head of the bed is elevated. She is currently getting Lasix 100 mg IV x1 dose per Dr. Gomez. She states that her breathing is slightly better today. LABORATORY DATA: Sodium 142, potassium 4.3, chloride 110, CO2 of 16, BUN 50, creatinine 3.9, glucose 107, anion gap is 15, calcium 7.7, phosphorus is 5, albumin 2.4. White count 15.39, hemoglobin 9, hematocrit 27.5, with a platelet count of 112,000. PHYSICAL EXAMINATION: Her most recent vital signs: Temperature 97.6 degrees, blood pressure 145/63, heart rate 74, respirations 14, she is on 1.5 L nasal cannula, last recorded saturation 100%. She has had 410 in. She has had 840 mL out in the last 24 hours. General: This is a 77- year-old white female resting quietly in bed. No acute distress. Skin: Warm and dry. She appears chronically ill. HEENT: Normocephalic, atraumatic. Conjunctivae pale. She has DAY. Mucous membranes are dry. Neck: Supple. Trachea midline. She continues with positive JVD in the upright position. Cardiovascular: She is regular rate and rhythm. She has pacemaker in place, 100% paced on the monitor. Lungs: Bibasilar crackles posterior. She is actually clear anterior. Equal excursion on O2. Abdomen: Soft. Tenderness is improving. Hypoactive bowel sounds. Genitourinary: Terrell catheter is in place. Urine is getting clearer. Adequate urine documented with improvement in the last 48 hours. Extremities: She continues with no edema to the lower extremities. She has hip edema present. Neurological: Alert and oriented to person and to place. ASSESSMENT AND PLAN: 1. Acute kidney injury on chronic kidney disease stage 3. The patient's baseline creatinine again is 1.4 to 1.6. Creatinine is slightly improved today at 3.9 with a BUN of 50. She has had increased urinary output of 840 mL to her Terrell catheter. The patient has been on the waiting list to be transferred to [facility] in context of possible hemodialysis. We are in agreement with this transfer. We will continue to monitor and evaluate her labs on a daily basis. It appears that the patient has plateaued and has improved on her urinary output. We will continue to monitor this. We had noted that her Lamictal was not dosed appropriately to her renal status. This was decreased yesterday. We will monitor. 2. Electrolytes and acid-base balance. The patient's CO2 remains stable at 16. She was started on sodium bicarbonate yesterday by mouth twice daily. We will monitor. 3. Anemia. Hemoglobin of 9. We will continue to monitor. 4. Leukocytosis. The patient is on renal dosed antibiotics per pneumonia of azithromycin and Rocephin. I would like to thank you for allowing us to follow with this patient. Dictated by CHAY King for Vasiliy Estrada MD cc: CHAY King MD
[2018-07-19 15:48] LABS: URINE SOURCE CATH
[2018-07-19 15:52] LABS: BILIRUBIN URINE NEGATIVE (NEGATIVE); BLOOD URINE LARGE (NEGATIVE); COLOR STRAW; GLUCOSE URINE NEGATIVE (NEGATIVE); KETONE URINE NEGATIVE (NEGATIVE); LEUKOCYTES URINE MODERATE (NEGATIVE); NITRITE URINE NEGATIVE (NEGATIVE); PROTEIN URINE 50 mg/dL (NEGATIVE); TURBIDITY URINE HAZY (CLEAR); UROBILINOGEN URINE NORMAL (NORMAL)
[2018-07-19 15:53] LABS: UR EPITHELIAL CELLS <10 /HPF (<10); URINE BACTERIA NEGATIVE /HPF; URINE RBC TNTC /HPF (<10); URINE WBC 20-40 /HPF (<10)
--- NOTE | 2018-07-19 16:14 | PROGRESS NOTE ---
DATE: 07/19/2018 SUBJECTIVE: The patient notes that she is feeling okay. She is still having a little bit of shortness of breath, states it has gotten a little bit worse over the past 24 hours. Denies any chest pain, palpitations. Denies any coughing or congestion. Denies any GI or symptoms currently. OBJECTIVE: Vital signs: Temperature 97.7, pulse 63, respiratory rate 14, BP 111/54. General: Patient is very pleasant to talk with, but does not appear to be in any respiratory distress. HEENT: Normocephalic. Neck: Supple. CARDIOVASCULAR: Regular rate. Chest: Positive rhonchi. No wheezes, no crackles. Otherwise clear. Abdomen: Soft, nondistended, nontender. The bilateral lower quadrant firmness appears to have improved. Extremities: Moves all extremities. She has trace edema. LABORATORY DATA: Labs reviewed to be WBC 15, hemoglobin 9, hematocrit 27. Carbon dioxide 16, BUN 50, creatinine 3.9, glucose 107. ASSESSMENT: 1. Acute tubular necrosis (ATN). The patient's renal function actually has improved slightly with her creatinine down to 3.9 from yesterday's 4.1. BUN is stable at 50. We did give her 100 mg of Lasix IV earlier today, as she noted that she was having some shortness of breath. She has actually started having very good results with 800 mL of urine output since the IV Lasix. 2. Acute renal failure. 3. Aortic valve replacement. Patient currently is not on home anticoagulation. As noted in prior notes, she had an acute bleed, required 6 units in transfusion. Currently, she is stable. She is not on any anticoagulation secondary to this. Most likely, we will need to leave this off for the next several days. If her hemoglobin and hematocrit remain stable, certainly should readdress her need for anticoagulation due to her aortic valve. 4. Acute bleed, stable. 5. Anemia, stable after 6 units of transfusion. Her hemoglobin and hematocrit have actually increased today from yesterday. 6. Leukocytosis. 7. Metabolic acidosis secondary to renal failure. Prior to today, patient was a little over 10 L positive. Currently with her 800 mL out, she is improving. We will continue to follow, and we will transfer her to [facility]. cc: Lincoln Gomez MD
[2018-07-19] MEDS: MYCOSTATIN SUSP PO SCH ×3 (18:21→20:01)
[2018-07-19 18:27] LABS: INR 1.57
[2018-07-19] MEDS: LOVENOX SUBQ SCH (18:45)
--- NOTE | 2018-07-19 18:54 | PROGRESS NOTE ---
DATE: 07/19/2018 INTERVAL HISTORY: Ms. Saunders was transferred from [facility] for multiple comorbidities as well as possible need for hemodialysis and Nephrology consultation. SUBJECTIVE: Patient denies any chest pain. She is feeling a little short of breath. She complains of some abdominal soreness, has not had a bowel movement. The patient's daughter is at bedside and pertinent history has been discussed with her and all of her questions have been answered and also a surrogate decision maker. OBJECTIVE: Vital signs: Currently detect temperature of 98 degrees, pulse 86, respiratory rate 16, blood pressure 140/70, saturating 97% on 2 L nasal cannula. PHYSICAL EXAMINATION: General: Appears in mild distress, appears cachectic. HEENT: Oral cavity. She has membranous thrush affecting hard palate and soft palate, extending up to posterior pharyngeal wall as well, and she has dysphagia. Chest: She has a midline chest scar of multiple chest surgeries. She also has a left-sided AICD pacemaker that I could palpate. Cardiovascular: S1 normal. S2 is mechanical. No murmur, rub, or gallop. Note, not tachycardic. Lungs: Air entry bilaterally equal in bilateral suprascapular regions. However, significantly decreased air entry with inspiratory crackles, bilateral infrascapular region. No wheeze or rhonchi. Abdomen: Firm and diffusely tender. She also had a palpable hematoma on right-sided flank region. Genitourinary: She has a Terrell catheter in place. Extremities: Bilateral lower extremity edema. Neurologic: Alert and oriented x3. She has hearing impairment. LABORATORY DATA: Labs drawn today morning suggestive of leukocytosis of 15,000, hemoglobin of 9, platelet count of 112,000. Normal electrolytes except hyperchloremia, low bicarbonate, elevated BUN and creatinine, hypocalcemia, hyperphosphatemia. MICROBIOLOGICAL DATA: Urine culture is in lab. ASSESSMENT AND PLAN: 1. Acute tubular necrosis, due to contrast-induced nephropathy due to CT scan of the abdomen and pelvis that she had received at outside hospital at [place], on chronic kidney disease stage 3. She does not have hyperkalemia. She does have metabolic acidosis, increasing BUN and creatinine. Continue close input and output monitoring to Terrell catheter. She has started making urine. Nephrology on board. We will appreciate their recommendation about dosing of medication. She was given 100 mg of IV Lasix. We will monitor with daily BMP and assess the need for dialysis, if at all. 2. Supratherapeutic INR in the setting of possible drug interaction between levofloxacin and warfarin with INR of 14 on presentation. Status post 3 units of FFP, 10 mg of intravenous vitamin K, and 5 mg of oral vitamin K. Her INR yesterday was 1.5. Today I am awaiting the current results. Her warfarin has been held. She is off levofloxacin now. 3. History of mechanical aortic valve replacement, on long-term anticoagulation. Her anticoagulation has been held because of significant anemia due to acute blood loss and multiple abdominal wall and pelvic hematomas. I will resume anticoagulation with enoxaparin, considering she is at high risk of mechanical aortic valve thrombosis, and her hemoglobin has been stable. I will adjust the enoxaparin dose according to her blood counts, kidney function, clinical response. 4. Acute blood loss anemia due to abdominal wall hematoma due to supratherapeutic INR. Monitor CBC daily and transfuse to maintain hemoglobin more than 7. 5. History of left lower lobe pneumonia, on ceftriaxone and azithromycin currently. I will follow up with chest x-ray tomorrow, and we will assess the need for change of antibiotics, considering her persistent leukocytosis. 6. History of seizure disorder. Last seizure was in July 2018. Continue home zonisamide. Her lamotrigine dose has been modified by Nephrology team, considering her poor kidney function. I appreciate further dose adjustment recommendations. 7. History of asthma. Continue home Symbicort. 8. Oral thrush. Start patient on nystatin suspension. I will follow up with liver function test tomorrow and accordingly I might consider switching it to fluconazole. 9. Other. Continue home trazodone, escitalopram, and start patient on MiraLAX to help with the bowel movement. DISPOSITION: The patient remains in ICU. Her condition is critical. Plan of care discussed with the patient and her daughter who is a surrogate decision maker at bedside. COMPLEXITY: More than 30 minutes were spent in taking care of this patient. cc: David Bello MD
[2018-07-19] MEDS ORDERED: MORPHINE IV PRN (19:52)
[2018-07-19] MEDS ORDERED: ZOFRAN IV PRN (19:52)
[2018-07-19] MEDS ORDERED: BLISTEX MEDICATED BERRY LIP BALM TOP PRN (19:53)
[2018-07-19] MEDS: ROCEPHIN 1 GM in NS 50 ML IV SCH (19:53)
[2018-07-19] MEDS: DESYREL PO SCH (20:00)
[2018-07-19] MEDS: SODIUM BICARBONATE PO SCH (20:00)
[2018-07-19] MEDS: SODIUM CHLORIDE 0.9% INJ SCH (20:22)
[2018-07-19] MEDS: MIRALAX PO SCH (20:23)
[2018-07-19] MEDS ORDERED: MIRALAX PO SCH (21:00)
[2018-07-19] MEDS ORDERED: ZONEGRAN PO SCH (21:00)
[2018-07-20 05:50] LABS: HEMATOCRIT 28.4 % (37.0-47.0); HEMOGLOBIN 9.3 g/dL (12.0-16.0); MCH 29.2 PG (27-31); MCHC 32.7 g/dL (33-37); MPV 9.2 FL (7.4-10.4); RBC 3.19 XMIL (4.2-5.4); RDW 17.4 % (11.5-14.5); WBC 19.21 X1000 (4.8-10.8)
[2018-07-20 06:25] LABS: INR 1.68
[2018-07-20 06:27] LABS: ALBUMIN 2.5 g/dL (3.5-5.0); CALCIUM 7.9 mg/dL (8.8-10.2); CREATININE 3.2 mg/dL (0.5-0.9); PHOSPHORUS 3.8 mg/dL (2.7-4.5); POTASSIUM 3.8 mmol/L (3.5-5.1)
[2018-07-20] MEDS: PROTONIX IV SCH ×2 (07:14→21:08)
[2018-07-20] MEDS: SODIUM CHLORIDE 0.9% INJ SCH (07:14)
[2018-07-20] MEDS ORDERED: SYMBICORT 160/4.5 MICROGM INHALER INH SCH (07:30)
--- NOTE | 2018-07-20 07:30 | Diag Imaging Result Doc PS360 ---
EXAM: CHEST-PORTABLE INDICATION: Follow up left lower lobe pneumonia TECHNIQUE: One view COMPARISON: 07/10/2018 FINDINGS: Inspiration is suboptimal. The left basilar opacity seen on the previous study is approximately stable and may represent fibrosis. Central vasculature is perhaps slightly increased suggesting mild pulmonary venous congestion. This may also be due to vascular crowding from poor inspiration. No other new consolidation is identified. Cardiac silhouette is stable. IMPRESSION: Lower lung volumes and increased central vasculature as described. Approximately stable vague mild opacity at the left lung base. Electronically signed by Juan Connolly 07/20/2018 7:28 AM
[2018-07-20 07:42] LABS: ALB/GLOB RATIO 0.8; ALBUMIN 2.5 g/dL (3.5-5.0); DIRECT BILIRUBIN 0.2 mg/dL (0.00-0.20); TOTAL BILIRUBIN 0.48 mg/dL (0.20-1.00); TOTAL PROTEIN 5.5 g/dL (6.3-8.3)
[2018-07-20] MEDS: SYMBICORT 160/4.5 MICROGM INHALER INH SCH ×2 (08:09→18:52)
[2018-07-20] MEDS: MYCOSTATIN SUSP PO SCH ×4 (08:53→21:11)
[2018-07-20] MEDS: MIRALAX PO SCH ×2 (08:53→21:09)
[2018-07-20] MEDS: LAMICTAL PO SCH (08:54)
[2018-07-20] MEDS: LEXAPRO PO SCH (08:54)
[2018-07-20] MEDS: SODIUM BICARBONATE PO SCH ×2 (08:55→21:12)
[2018-07-20] MEDS: ZITHROMAX PO SCH (08:55)
[2018-07-20] MEDS: ZONEGRAN PO SCH ×2 (08:55→21:08)
[2018-07-20] MEDS ORDERED: ZONEGRAN PO SCH (09:00)
[2018-07-20] MEDS ORDERED: ZITHROMAX PO SCH (09:00)
--- NOTE | 2018-07-20 11:22 | PROGRESS NOTE ---
DATE: 07/20/2018 INTERVAL HISTORY: No acute events overnight. SUBJECTIVE: Patient in the morning was sleeping and did not appear to be in any distress. We discussed about her findings of stable hemoglobin and hematocrit. We also discussed about continuing anticoagulation. I answered all of her questions. OBJECTIVE: Vital signs: Currently detect temperature of 98.1 degrees, pulse of 80 per minute, respiratory rate 16, blood pressure 130/56, saturating 93% on 2 L nasal cannula. General: She does not appear in any acute distress at the moment, appears cachectic, and has protein-energy malnutrition. HEENT: Oral cavity has membranous thrush, looks improved than yesterday, which is extending up to the posterior pharyngeal wall. Chest: She has a midline chest scars of multiple chest surgeries. She also has left-sided AICD pacemaker that I could palpate. Cardiovascular: S1 normal S2 mechanical. Mild systolic murmur best heard in mitral region. No rub or gallop. Lungs: Air entry bilaterally equal in suprascapular regions. Significantly decreased air entry with inspiratory crackles, especially left infrascapular region. No wheeze or rhonchi. Abdomen: Firm. No tenderness, except hypogastric tenderness. She has a palpable hematoma in the right-sided flank region. Genitourinary: She has a Terrell catheter in place. Extremities: Bilateral lower extremity edema. Neurologic: She is alert, oriented x3. She has hearing impairment. Input and output: Suggests 4.1 L urine after a dose of Lasix yesterday. LABORATORY DATA: Suggestive of persistent and even worsening leukocytosis, normocytic anemia, thrombocytopenia. INR of 1.6. Hypernatremia, hyperchloremia, improving bicarbonate, improving BUN and creatinine, with improving GFR. Her liver function tests are essentially normal. MICROBIOLOGY: Repeat blood culture has been ordered. Urine culture has not shown any growth. ASSESSMENT AND PLAN: 1. Acute tubular necrosis due to contrast-induced nephropathy due to CT scan of abdomen and pelvis received at [facility] [place] on top of chronic kidney disease, stage 3. She does not have hyperkalemia. Her metabolic acidosis is improving with improvement in BUN and creatinine. Continue close input and output monitoring for Terrell catheter. Nephrology on board. Does not seem to have urgent need of hemodialysis. We will assess with daily BMP. 2. Supratherapeutic INR of 14 on presentation because of possibly drug interaction between levofloxacin and warfarin. Status post 3 units of FFP, 10 mg of intravenous vitamin K, and 5 mg of oral vitamin K. Her INR has been around 1.5 since then. Her warfarin has been held, and she is off levofloxacin now. 3. History of mechanical aortic valve replacement, on long-term anticoagulation with warfarin. Continue patient on enoxaparin subcutaneous, adjusted dose for kidney function to prevent aortic valve thrombosis. I will continue to monitor hemoglobin and hematocrit closely. 4. Acute blood-loss anemia due to abdominal wall, pelvic wall, and intrapelvic hematomas in the setting of supratherapeutic INR. Status post 6 units of RBC transfusions. Currently hemoglobin stable. Continue to monitor. 5. History of left lower lobe pneumonia with CT scan a few days ago showing left lower lobe pleural effusion with some atelectasis without any organized consolidation. However, she continues to have persistent leukocytosis. Continue ceftriaxone and azithromycin for suspected pneumonia and follow-up CT scan of the abdomen and pelvis without contrast to see for any occult abscess that she might have developed at the site of hematoma and follow up with urine and blood culture results. 6. History of seizure disorder with last seizure being in July 2018. Continue home zonisamide and lamotrigine dosing based on kidney function. Her seizure episodes described to me have been atypical, where she would lose consciousness for a minute or 2 and would not remember the episode. 7. History of asthma. Continue home Symbicort, continue nystatin suspension for oral thrush. 8. Others. Continue home trazodone, escitalopram for anxiety, depression, and sleep. Continue MiraLAX to help with bowel movement. DISPOSITION: Patient remains in ICU for close monitoring of her cardiac respiratory status, hemoglobin, and hematocrit. Plan of care has been discussed with her today. All of her questions have been answered. CRITICAL CARE TIME: More than 30 minutes of critical care time was spent in taking care of this patient. cc: David Bello MD
--- NOTE | 2018-07-20 15:08 | Diag Imaging Result Doc PS360 ---
EXAM: CT ABDOMEN/PELVIS W/O CONTRAST 07/20/2018 HISTORY: Rule out abscess formation over hematoma TECHNIQUE: This exam was performed using automated exposure control, adjustment of mA or kV according to patient size, and/or use of iterative reconstruction technique. COMMENT: The current examination is compared with the previous examination of 07/15/2018. 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 The lung bases are not significantly changed. There is more pleural fluid in the hemithoraces particularly on the right than on the previous examination. There is a vena cava filter. There is an abdominal aortic aneurysm below the level of the renal arteries with a maximum AP dimension of 3.2 cm. Some contrast excretion is noted in both kidneys. This is residual from the previous examination. There is also contrast in the urinary bladder which is somewhat distended. A Terrell catheter is present. There is a hematoma present in the lateral posterior abdominal wall musculature on the right around image 61. This was also present on the previous examination and is in fact somewhat smaller. There are no air bubbles to suggest an abscess. There are multiple hematomata present in the anterior abdominal wall musculature, in both rectus sheaths and also anterior to the iliacus muscle on the left. This was also present at the time the previous study and is similar in appearance without evidence of air bubbles to suggest infection. There is subcutaneous edema which was also present previously. This may be slightly worse. IMPRESSION: 1. Abdominal and pelvic wall hematomata without evidence of abscess. 2. Worsened pleural effusions. 3. Worsened anasarca. Electronically signed by Noam Gleason 07/20/2018 3:05 PM
--- NOTE | 2018-07-20 16:07 | NEPHROLOGY PROGRESS NOTE ---
DATE: 07/20/2018 DATE AND TIME SEEN: On 07/20/2018 at 0740 hours. SUBJECTIVE: Ms. Saunders is resting quietly in bed. She states that she is feeling just a little bit better. She has no complaints today. She states that her breathing has improved. OBJECTIVE: Her most recent vital signs are temperature is 97.2 degrees, blood pressure 131/64, heart rate 68, respirations 10. She is on 2 liters nasal cannula. Last recorded saturation 98%. She has had 680 input and 4150 output to Terrell catheter. LABORATORIES: Sodium 146, potassium 3.8, chloride 114, CO2 of 19, BUN 48, creatinine 3.2, glucose 105, anion gap is 13, calcium 7.9, phosphorus 3.8, albumin 2.5. White count 19.21, hemoglobin 9.3, hematocrit 28.4, with a platelet count of 109,000. Prothrombin time is 21, INR of 1.68. PHYSICAL EXAMINATION: General: This is a 77-year-old white female. She is resting quietly in bed. She appears in no acute distress. Skin: Warm and dry. HEENT: Normocephalic, atraumatic. Conjunctiva is pale. She has DAY. Mucous membranes are dry. Neck: Supple. Trachea midline. No JVD this a.m. She is almost in the supine position. Cardiovascular: She is regular rate and rhythm. Pacemaker 100% to the monitor. Lungs: Bibasilar crackles have improved. Remains on O2 support. Abdomen: Less tender, soft. Positive bowel sounds. Genitourinary: Terrell catheter is in place with adequate urine output. Extremities: No edema, no clubbing or cyanosis. Integumentary: The patient has different stages of healing ecchymosis to her entire extremity and torso. Neurological: She is alert and oriented x3. ASSESSMENT AND PLAN: 1. Acute kidney injury on chronic kidney disease stage 3. The patient's BUN and creatinine have improved today. She has had an increase in urine output with a good response to the Lasix 100 mg IV push yesterday. No indications for intervention. We will continue to monitor and follow. 2. Electrolytes and acid-base balance. These are stable. 3. Anemia. This is low but acceptable after transfusion last week. 4. Supratherapeutic INR. This remains stable. 5. Leukocytosis. The patient remains on renal dosed antibiotics. I would like to thank you for allowing us to follow with this patient. Dictated by CHAY King for Vasiliy Estrada MD cc: CHAY King MD
[2018-07-20] MEDS: LOVENOX SUBQ SCH (17:51)
[2018-07-20] MEDS: DESYREL PO SCH (21:08)
[2018-07-20] MEDS: ROCEPHIN 1 GM in NS 50 ML IV SCH (21:09)
[2018-07-21 08:24] LABS: BASO# 0.02 X1000 (0.0-0.2); BASO% 0.1 % (0.0-0.8); EOS% 1.2 % (0.0-10.0); HEMATOCRIT 29.9 % (37.0-47.0); HEMOGLOBIN 9.9 g/dL (12.0-16.0); IMM GRAN% 1.2 % (0.0-0.5); LYMPH# 0.66 X1000 (1.2-3.4); LYMPH% 3.8 % (20.5-51.1); MCH 29.5 PG (27-31); MCHC 33.1 g/dL (33-37); MONO# 1.19 X1000 (0.11-0.59); MONO% 6.9 % (1.7-9.3); MPV 9.6 FL (7.4-10.4); NEUT# 14.96 X1000 (1.4-6.5); NEUT% 86.8 % (42.2-75.2); PLT 159 X1000 (130-400); RBC 3.36 XMIL (4.2-5.4); RDW 17.8 % (11.5-14.5); WBC 17.23 X1000 (4.8-10.8)
[2018-07-21 08:25] LABS: INR 1.61; PROTIME 20.4 Seconds (11.0-16.0)
[2018-07-21 08:30] LABS: BANDS 4 % (0-1); LYMPHS 2 % (21-51); MONO 4 % (1-9); SEGS 90 % (42-75)
[2018-07-21 08:35] LABS: ALBUMIN 2.4 g/dL (3.5-5.0); CALCIUM 7.9 mg/dL (8.8-10.2); CREATININE 1.6 mg/dL (0.5-0.9); PHOSPHORUS 2.5 mg/dL (2.7-4.5); POTASSIUM 3.7 mmol/L (3.5-5.1)
[2018-07-21] MEDS: SODIUM BICARBONATE PO SCH (09:28)
[2018-07-21] MEDS: LEXAPRO PO SCH (09:28)
[2018-07-21] MEDS: ZITHROMAX PO SCH (09:28)
[2018-07-21] MEDS: MYCOSTATIN SUSP PO SCH ×4 (09:28→21:41)
[2018-07-21] MEDS: MIRALAX PO SCH ×2 (09:28→21:41)
[2018-07-21] MEDS: PROTONIX IV SCH (09:28)
[2018-07-21] MEDS: SYMBICORT 160/4.5 MICROGM INHALER INH SCH ×2 (09:30→20:35)
[2018-07-21] MEDS: ZONEGRAN PO SCH ×2 (09:32→21:44)
--- NOTE | 2018-07-21 14:15 | NEPHROLOGY PROGRESS NOTE ---
DATE: 07/21/2018 DATE AND TIME: Date seen 07/21/2018; time seen 0910. SUBJECTIVE: Ms. Saunders is resting quietly in bed. She is sitting up eating her breakfast. States that she feels great. OBJECTIVE: Her most recent vital signs: Temperature 98.5, blood pressure 153/62, heart rate is 80, respirations 18. She is on 2 L nasal cannula. Last recorded saturation 100%. She has had 770 mL in; she has had 1605 mL out in the last 24 hours. LABORATORY DATA: Sodium 144, potassium 3.7, chloride 110, CO2 23, BUN 34, creatinine 1.6, glucose 117. Her anion gap is 11, calcium 7.9, phosphorus 2.5, albumin 2.4. Previous hemoglobin 9.3. Her pro time is 20.4 with an INR of 1.61. PHYSICAL EXAMINATION: General: This is a 77-year-old white female resting quietly in a chair. She is in no acute distress. Skin: Warm and dry. HEENT: Normocephalic, atraumatic. Conjunctiva is pale. She has DAY. Mucous membranes are dry. Neck: Supple. Trachea midline. She has no JVD in the upright position. Cardiovascular: Regular rate and rhythm. She has a pacemaker that is in place. No murmur or gallop appreciated. Lungs: Have no crackles. No wheezes present. Clear to auscultation. Remains on O2 support. Abdomen: Less tender. She does have some bruising present. Positive bowel sounds. Genitourinary: Terrell catheter is in place with adequate urine output. Extremities: The patient has different stages of healing of ecchymosis to the entire upper and lower torso and extremities. Neurologic: She is alert and oriented x 3. ASSESSMENT AND PLAN: 1. Acute kidney injury on chronic kidney disease stage 3. The patient's baseline creatinine is 1.6. She has reached her baseline today. Her urine output is stable, secondary to these findings with good response from her Lasix x 1 dose of 100 mg. We will sign off and remain available if indicated during her further hospitalization. I would like to thank you for allowing us to follow with this patient. Dictated by CHAY King for Vasiliy Estrada MD cc: CHAY Kingdish, MD [facility]
[2018-07-21] MEDS: LOVENOX SUBQ SCH (17:36)
[2018-07-21] MEDS ORDERED: LASIX IV ONE (18:52)
--- NOTE | 2018-07-21 19:53 | PROGRESS NOTE ---
DATE: 07/21/2018 INTERVAL HISTORY: The patient was transferred from ICU to floor, did not have any acute events. SUBJECTIVE: She is feeling much better today than she has been the last 2 days. Denies any complaints. We discussed about her lab findings. We discussed about CAT scan findings. I answered all of her questions. The patient's daughter is at bedside. The patient denies any chest pain. She denies any shortness of breath. OBJECTIVE: Vital signs show a temperature of 99.3 degrees, pulse 77, respiratory rate 18, blood pressure 152/65, saturating 100% on room air. General: She does not appear in any acute distress. Cachectic. Has protein-energy malnutrition. Her membranous thrush has significantly improved in the oral cavity. She had a midline chest scar of multiple chest surgeries. She also has left-sided AICD pacemaker. S1, S2 normal, except a mechanical S2. Mild systolic murmur heard in mitral region. No rub or gallop. Air entry bilaterally equal in suprascapular region. Significantly decreased air entry with inspiratory crackles in the left infrascapular region, without wheeze or rhonchi. Abdomen: There are multiple areas of firmness, especially in the hypogastric and flank region. Genitourinary: She has a Terrell catheter in place which has tea- colored urine and some RBC sediment. Bilateral lower extremity edema, which is better than on presentation. She is alert, oriented x3. She does have hearing impairment. Input and output suggests -800 mL yesterday. LABORATORY DATA: Labs suggestive of persistent leukocytosis, normocytic anemia with stable hemoglobin, stable platelet count and resolution of thrombocytopenia. Her INR is 1.6. Her sodium is 144, potassium 3.7 and her carbon dioxide has improved to 23. Her BUN and creatinine have essentially become normal. Microbiology: Blood culture and urine culture no growth to date. ASSESSMENT AND PLAN: 1. Acute tubular necrosis due to contrast-induced nephropathy, due to CT scan of abdomen and pelvis received at [facility], on top of chronic kidney disease stage 3. Her kidney function has essentially recovered to her baseline. Continue close intake and output monitoring with Terrell catheter for now. She did not need any dialysis. 2. Acute hypoxic respiratory failure with left lung pleural effusion. I will give her an additional dose of Lasix today to help with her shortness of breath. 3. Acute blood loss anemia due to abdominal wall, pelvic wall and intrapelvic hematomas in the setting of supratherapeutic INR, which was related to drug interaction between levofloxacin and warfarin, requiring 3 units of fresh frozen plasma, 10 mg of intravenous vitamin K, and 5 mg of oral vitamin K. INR has been around 1.5 since then. She has required 6 units of red blood cell transfusion. Currently her hemoglobin is stable. I will continue to monitor. 4. History of mechanical aortic valve replacement, on long-term anticoagulation with warfarin. I will continue enoxaparin for now with eventual transition to warfarin at the time of discharge. 5. History of left lower lobe pneumonia with CAT scan a few days ago showing left lower lobe pleural effusion with atelectasis, without any organized consolidation, with persistent leukocytosis now. Follow up final results of blood culture, urine culture, and procalcitonin. My plan is to stop antibiotics after that. CT scan of the abdomen and pelvis did not detect any occult abscess. 6. History of seizure disorder with last seizure in 07/2018. Continue home zonisamide and lamotrigine. I will adjust dose according to kidney function. Her seizure episodes described to me have been atypical, where she would lose consciousness for a minute or two, and would not remember the episodes. 7. Continue home Symbicort for asthma, nystatin suspension for oral thrush, trazodone for insomnia, escitalopram for anxiety and MiraLAX for constipation, which has resolved. 8. Disposition: The patient remains inside the hospital. My eventual plan is to discharge her to rehab. If her condition remains stable, I am anticipating discharge in the next 48-72 hours. Plan of care discussed with the patient and daughter at bedside. All of their questions have been answered. cc: David Bello MD MTDD
[2018-07-21] MEDS: ROCEPHIN 1 GM in NS 50 ML IV SCH (20:42)
[2018-07-21] MEDS: DESYREL PO SCH (21:41)
[2018-07-22] MEDS: PRILOSEC PO SCH (06:04)
[2018-07-22 07:09] LABS: BASO# 0.01 X1000 (0.0-0.2); BASO% 0.1 % (0.0-0.8); EOS# 0.17 X1000 (0.0-0.7); EOS% 1.4 % (0.0-10.0); HEMATOCRIT 30.1 % (37.0-47.0); HEMOGLOBIN 9.5 g/dL (12.0-16.0); IMM GRAN# 0.15 X1000 (0.0-0.04); IMM GRAN% 1.2 % (0.0-0.5); MCH 28.3 PG (27-31); MCHC 31.6 g/dL (33-37); MCV 89.6 FL (81-99); MONO# 1.06 X1000 (0.11-0.59); MONO% 8.5 % (1.7-9.3); MPV 9.4 FL (7.4-10.4); NEUT# 10.62 X1000 (1.4-6.5); NEUT% 84.8 % (42.2-75.2); PLT 176 X1000 (130-400); RBC 3.36 XMIL (4.2-5.4); RDW 17.5 % (11.5-14.5); WBC 12.51 X1000 (4.8-10.8)
[2018-07-22 07:29] LABS: ALBUMIN 2.5 g/dL (3.5-5.0); CALCIUM 8.4 mg/dL (8.8-10.2); CREATININE 1.3 mg/dL (0.5-0.9); PHOSPHORUS 2.1 mg/dL (2.7-4.5); POTASSIUM 3.6 mmol/L (3.5-5.1)
[2018-07-22 07:55] LABS: INR 1.5; PROTIME 19.3 Seconds (11.0-16.0)
[2018-07-22] MEDS: SYMBICORT 160/4.5 MICROGM INHALER INH SCH ×2 (08:25→20:15)
[2018-07-22] MEDS: ZITHROMAX PO SCH (08:41)
[2018-07-22] MEDS: LAMICTAL PO SCH ×2 (08:42→20:00)
[2018-07-22] MEDS: ZONEGRAN PO SCH ×2 (08:42→20:01)
[2018-07-22] MEDS: LEXAPRO PO SCH (08:43)
[2018-07-22] MEDS: MYCOSTATIN SUSP PO SCH ×4 (08:43→20:01)
[2018-07-22] MEDS: MIRALAX PO SCH ×2 (11:15→20:01)
[2018-07-22] MEDS: K-PHOS PO SCH ×2 (17:15→21:03)
[2018-07-22] MEDS ORDERED: LOVENOX SUBQ ONE (17:15)
--- NOTE | 2018-07-22 18:16 | PROGRESS NOTE ---
DATE: 07/22/2018 INTERVAL HISTORY: No acute event overnight. After yesterday's Lasix dose she was negative 800 mL yesterday and negative 1.6 L so far today, negative 200 mL today. SUBJECTIVE: She is feeling fine. She was able to come out of bed and go to the bathroom using a walker and feeling stronger each day. The patient's daughter is at bedside. I discussed the plan of care with them. I answered all of their questions. OBJECTIVE: Vital signs: Currently, temperature 98.9 degrees, pulse 81, respiratory rate 16, blood pressure 139/67, saturating 100% on 2 L nasal cannula. General: Does not appear in any acute distress. HEENT: Oral cavity is moist. No oral thrush. Lungs: Air entry bilaterally equal in suprascapular region. However, significantly decreased air entry with mild inspiratory crackles in left infrascapular region. No wheeze or rhonchi. Cardiovascular: S1, S2 normal. Systolic murmur in mitral region. No rub or gallop, except mechanical S2. She has a midline chest scar of multiple chest surgeries including AICD pacemaker placement and thoracic aneurysm repair. Abdomen: Soft. There are multiple areas of fullness, especially in the bilateral flank and hypogastric region. No organomegaly. Active bowel sounds. : She has a Terrell catheter in place. Extremities: Bilateral lower extremity edema which is minimal. Neurologic: She is alert and oriented x3. LABS: Suggestive of improving leukocytosis, normocytic anemia with stable hemoglobin, normal platelet count. INR of 1.5. Normal electrolytes. Improving kidney function with elevated increasing GFR. She does have hypophosphatemia for which phosphorus has been ordered. ASSESSMENT AND PLAN: 1. Acute tubular necrosis due to contrast-induced nephropathy due to CT scan of abdomen and pelvis received at [facility], [place], on top of chronic kidney disease stage 3. Her kidney function essentially has recovered to her baseline. Continue close input and output monitoring with Terrell catheter. She did not need any dialysis. 2. Acute hypoxic respiratory failure with left lung pleural effusion and suspected left lower lobe pneumonia. Follow up with chest x-ray today. Based on that, I will give her additional Lasix. In the past, in September 2017 she did have similar left-sided pleural effusion requiring thoracenteses. At that time pleural fluid analysis was negative for any bacterial growth, though it did have 39 WBCs with 72% polymorphonuclears cells and elevated total protein. I could not find corresponding serum LDH level to definitively call it exudative. Based on chest x-ray, I might give additional Lasix and based on it, she may require repeat thoracenteses if she is symptomatic. Continue intravenous ceftriaxone and stop the antibiotics in next 24 hours based on WBC count, procalcitonin level. I have stopped her azithromycin. 3. History of mechanical aortic valve replacement, on long-term anticoagulation with warfarin. Continue enoxaparin and increase the dose as her acute kidney function has increased. I gave a total of 80 mg of enoxaparin today. Based on her kidney function tomorrow, she might need 1 mg/kg b.i.d. dosing. Start warfarin. 4. Acute blood-loss anemia due to abdominal wall pelvic or intrapelvic hematoma in the setting of supratherapeutic INR, which was related to drug interaction between levofloxacin and warfarin, requiring 2 units of fresh frozen plasma, 10 mg IV vitamin K, and 5 mg oral vitamin K. This was her initial presentation at [facility], [place]. Her INR has been around 1.5 and she required 6 units of blood transfusion as well. Currently, hemoglobin is stable. I will continue to monitor it. 5. History of left lower lobe pneumonia with CAT scan a few days ago showing left lower lobe pleural effusion with atelectasis, without any organized consolidation, with persistent leukocytosis and mild fever. Follow up blood culture, urine culture results, and procalcitonin. My plan is to stop antibiotics tomorrow since I do not have any identifiable source of infection. 6. History of seizure disorder with last seizure in July 2018. Continue home zonisamide and lamotrigine. Her seizure episode was described to me as atypical where she would lose consciousness for a minute or 2; she would not remember the episode though. 7. Others. Continue home Symbicort for asthma. Stop nystatin as her oral thrush has resolved. Her dysphagia because of oral thrush has also resolved. Continue trazodone for insomnia, escitalopram for anxiety, MiraLAX for constipation. 8. Disposition. The patient has been doing better day by day. Social Work rehab consult has been placed. Her respiratory status is also stabilized. Based on chest x- ray findings and need for thoracenteses, I would anticipate discharge in the next 24-48 hours. Plan of care was discussed with the patient and her daughter at bedside. All of their questions have been answered satisfactorily. cc: David Bello MD MTDD
--- NOTE | 2018-07-22 18:30 | Diag Imaging Result Doc PS360 ---
CHEST-2 VIEWS - 07/22/2018 INDICATION: Follow up pleural effusion COMPARISON: 07/20/2018 FINDINGS: Lung volumes are greatly improved. There is decrease in the infiltrate or crowding bilaterally. There is a trace bilateral pleural effusions stable from prior. Stable severe cardiomegaly. IMPRESSION: Improved lung volumes. Otherwise little change from prior. Electronically signed by Cristofer Zamarripa 07/22/2018 6:27 PM
[2018-07-22] MEDS: LOVENOX SUBQ SCH (19:02)
[2018-07-22] MEDS: DESYREL PO SCH (20:00)
[2018-07-22] MEDS: ROCEPHIN 1 GM in NS 50 ML IV SCH (20:00)
[2018-07-22] MEDS ORDERED: LASIX IV ONE (20:04)
[2018-07-22] MEDS ORDERED: COUMADIN PO SCH (21:00)
[2018-07-23] MEDS: PRILOSEC PO SCH (06:14)
[2018-07-23 08:01] LABS: INR 1.34; PROTIME 17.6 Seconds (11.0-16.0)
[2018-07-23 08:04] LABS: BASO# 0.02 X1000 (0.0-0.2); BASO% 0.2 % (0.0-0.8); EOS# 0.16 X1000 (0.0-0.7); EOS% 1.8 % (0.0-10.0); HEMATOCRIT 28.7 % (37.0-47.0); IMM GRAN# 0.11 X1000 (0.0-0.04); IMM GRAN% 1.2 % (0.0-0.5); LYMPH# 0.43 X1000 (1.2-3.4); LYMPH% 4.8 % (20.5-51.1); MCH 28.5 PG (27-31); MCHC 31.4 g/dL (33-37); MCV 90.8 FL (81-99); MONO# 1.02 X1000 (0.11-0.59); MONO% 11.5 % (1.7-9.3); MPV 9.2 FL (7.4-10.4); NEUT# 7.13 X1000 (1.4-6.5); NEUT% 80.5 % (42.2-75.2); PLT 193 X1000 (130-400); RBC 3.16 XMIL (4.2-5.4); RDW 17.4 % (11.5-14.5); WBC 8.87 X1000 (4.8-10.8)
[2018-07-23] MEDS ORDERED: LASIX PO ONE (08:14)
[2018-07-23 08:22] LABS: ALBUMIN 2.4 g/dL (3.5-5.0); CALCIUM 8.2 mg/dL (8.8-10.2); CREATININE 1.3 mg/dL (0.5-0.9); PHOSPHORUS 2.3 mg/dL (2.7-4.5); POTASSIUM 3.4 mmol/L (3.5-5.1)
[2018-07-23] MEDS: ZONEGRAN PO SCH (09:28)
[2018-07-23] MEDS: MYCOSTATIN SUSP PO SCH ×2 (09:28→13:52)
[2018-07-23] MEDS: LEXAPRO PO SCH (09:29)
[2018-07-23] MEDS: K-PHOS PO SCH (09:29)
[2018-07-23] MEDS: LAMICTAL PO SCH (09:29)
[2018-07-23] MEDS: MIRALAX PO SCH (09:30)
--- NOTE | 2018-07-23 10:16 | Diag Imaging Result Doc PS360 ---
CHEST-PORTABLE - 07/23/2018 INDICATION: dyspnea COMPARISON: 07/22/2018 FINDINGS: Stable surgical changes to the heart. Stable trace pleural effusions. No significant infiltrates or edema. IMPRESSION: No change from prior. Electronically signed by Cristofer Zamarripa 07/23/2018 10:14 AM
[2018-07-23] MEDS: SYMBICORT 160/4.5 MICROGM INHALER INH SCH (11:28)
[2018-07-23 13:54] VITALS: BP 140/52
--- NOTE | 2018-07-23 14:40 | DISCHARGE SUMMARY ---
ADMISSION DATE: 07/14/2018 DISCHARGE DATE: 07/23/2018 CONSULTS: Nephrology and General Surgery. IMAGING: CT abdomen and pelvis on 07/14/2018: Multiple hematomas in the anterior and right lateral abdominal wall, additional hematoma within the pelvis, small distal abdominal aortic aneurysm, atrophic kidneys. Repeat CT on 07/15/2018 with no change in hematomas. Chest x-ray initially with slight vascular crowding, improved on repeat chest x-ray of 07/23/2018. LABORATORY DATA: Initial white count 16.3, discharge white count 8.8. Hemoglobin and hematocrit on discharge 9 and 28.7, stable from previous. Highest creatinine 4.1, trended down to 1.3, which is baseline. DISCHARGE DIAGNOSES: 1. Abdominal wall hematomas. 2. Supratherapeutic INR. 3. Acute kidney injury on chronic kidney disease stage 3 with acute tubular necrosis. 4. Mechanical aortic valve. 5. Coronary artery disease. 6. Hypertension. 7. Seizure disorder. 8. Volume overload secondary to kidney failure. 9. Asthma. HOSPITAL COURSE: The patient presented initially for INR check when total it was high at the Coumadin clinic. INR was 14.6 on admission, with hemoglobin 6.3, hematocrit 20.2. On imaging, she was found to have multiple abdominal wall hematomas. She was treated with vitamin K, fresh frozen plasma, and transfusion. Repeat imaging showed no progression of the hematomas. She eventually required a total of 2 units of fresh frozen plasma and 15 mg of vitamin K and 6 units of PRBCs. After transfusion x2 with the above, the patient's blood counts did stabilize, although they remained slightly low, which was thought to be her baseline related to chronic kidney disease. After her abdominal CT, she developed acute tubular necrosis with creatinine peaking at 4.1 before trending back down to 1.3. Dialysis was considered, but was never required, and the patient's kidney function began to recover. She did eventually recover to her baseline CKD 3 with a creatinine of 1.3. Along with the patient's decreased kidney function and decreased urine output, the patient had volume overload with pleural effusion and mild pulmonary edema. She was diuresed as kidney function allowed, and this did improve and was essentially resolved at discharge. Prior to admission, the patient had recently been diagnosed with pneumonia, but CT scan here showed effusion and atelectasis, but no pneumonia. She was monitored off antibiotics, and had no fever or worsening of her respiratory status, so antibiotics were not restarted. After resolution of her supratherapeutic INR and confirmation that her hematomas were not worsening, she was placed on Lovenox initially daily, transitioning to b.i.d. as her kidney function improved. This was done for her mechanical aortic valve. Her Coumadin was restarted. She had some thrush during her hospitalization, but this resolved with nystatin. Her asthma was stable. Her other chronic medical issues were also stable. Due to ongoing generalized weakness, she was discharged to SNF for rehab. DISCHARGE PHYSICAL EXAMINATION: Vital Signs: Temperature 97.6 degrees, pulse 82, respirations 18, blood pressure 140/52, O2 saturation 98% on room discharge. General: No acute distress. HEENT: Normocephalic, atraumatic. Moist mucous membranes. No JVD. No cervical adenopathy. Cardiovascular: Regular rate and rhythm. No murmurs, rubs, or gallops. Pulmonary: Decreased at the bases, otherwise clear to auscultation bilaterally. Abdomen: Soft. Minimal diffuse tenderness remains without rebound or guarding. Bowel sounds are positive. Extremities: Peripheral pulses decreased, but intact. No clubbing or cyanosis. Trace bilateral lower extremity edema, essentially unchanged. Neurologic: Cranial nerves grossly intact. No focal deficits identified. Psychiatric: Normal mood and affect. Awake, alert, oriented x3. Skin: No new rashes or lesion identified. DISCHARGE DIET: Regular with Coumadin restrictions. DISCHARGE MEDICATIONS: Simvastatin 40 mg p.o. at bedtime, Zonegran 200 mg p.o. at bedtime, Coreg 3.25 mg p.o. b.i.d., Lasix 20 mg p.o. b.i.d., Lamictal 100 mg p.o. b.i.d., Symbicort 2 puffs inhaled b.i.d., Coumadin 4 mg p.o. at bedtime, trazodone 50 mg p.o. at bedtime, Lexapro 20 mg p.o. daily, MiraLAX 17 grams p.o. b.i.d. (hold if greater than 1 bowel movement in the last 24 hours), Myrbetriq 25 mg p.o. daily. FOLLOWUP AND PLAN: Patient discharging to rehab. Continue Lovenox until INR is therapeutic (2.5 to 3.5). Check INR every 2 days. Repeat CBC and chemistry in a week. Follow up with PCP in 1 to 2 weeks. TIME SPENT: Greater than 30 minutes were spent arranging discharge and counseling the patient. Agree with above. the following is my own face to face assessment and evaluation. Patient with complicated hospital course but acute issues now resolved. appears to be tolerating anticoagulation. heart: RRR, valve click unchanged. Abd: s/nt/nd. bs +. MTDD
[2018-07-23] MEDS ORDERED: LOVENOX SUBQ SCH (21:00)
[2018-07-23] MEDS ORDERED: LAMICTAL PO SCH (21:00)
[2018-07-24] MEDS ORDERED: LAMICTAL PO SCH (09:00)
== END 2018-07-23 18:30 | DRG 813 ==
LOC: P.ED 16:57 → P.MEDSURG 16:58 → SUATTDRO 16:58 → P.ICU 07-15 10:41 → ICU 07-19 14:55 → 3N 07-20 23:34
PROVIDERS: ATTEND Internal Medicine
CPT/HCPCS: 36415; 36430; 71010; 71020; 71045; 71046; 74176; 74177; 80053; 80069; 80076; 81001; 82270; 82570; 83690; 84145; 84156; 84300; 85014; 85018; 85025; 85027; 85610; 86850; 86900; 86901; 86920; 87040; 87088; 87205; 94640; 94761; 96361; 96365; 96375; 96376; 97162; 97530; 99285; A9270; C9113; J0696; J1650; J1940; J2270; J2405; J3430; J7030; J7040; J7050; P9016; P9017; Q9967; S0164

== ENCOUNTER 2018-07-28 15:08 | Inpatient (IN) ==
[2018-07-28] MEDS ORDERED: FENTANYL ONE (15:23)
[2018-07-28] MEDS ORDERED: DIPRIVAN 1% ONE (15:23)
[2018-07-28] MEDS ORDERED: XYLOCAINE-MPF 2% ONE (15:23)
[2018-07-28] MEDS ORDERED: ROBINUL ONE (15:23)
[2018-07-28] MEDS ORDERED: QUELICIN (DOSE) ONE (15:23)
[2018-07-28] MEDS ORDERED: KEFZOL 2 GM/D5W 2 GM/50 ML IVPB ONE (15:30)
[2018-07-28] MEDS ORDERED: LR 1,000 ML ONE ×2 (15:30→17:10)
[2018-07-28 16:03] LABS: HEMATOCRIT 34.4 % (37.0-47.0); HEMOGLOBIN 10.3 g/dL (12.0-16.0); MCH 28.9 PG (27-31); MCHC 29.9 g/dL (33-37); MCV 96.6 FL (81-99); MPV 8.7 FL (7.4-10.4); RBC 3.56 XMIL (4.2-5.4); RDW 17.4 % (11.5-14.5); WBC 8.16 X1000 (4.8-10.8)
[2018-07-28 16:29] LABS: CALCIUM 8.7 mg/dL (8.8-10.2); CREATININE 1.2 mg/dL (0.5-0.9); POTASSIUM 3.4 mmol/L (3.5-5.1)
[2018-07-28 16:31] LABS: INR 1.69; PROTIME 21.1 Seconds (11.0-16.0)
[2018-07-28 16:32] LABS: PTT 43.1 Seconds (22.3-41.8)
[2018-07-28] MEDS ORDERED: ZOFRAN ONE (16:41)
[2018-07-28] MEDS ORDERED: DECADRON ONE (16:41)
[2018-07-28] MEDS ORDERED: VITAMIN K 5 MG in NS 50 ML IV ONE (17:44)
[2018-07-28] MEDS ORDERED: TYLENOL PO PRN (18:00)
[2018-07-28] MEDS ORDERED: LABETALOL IV PRN (18:00)
[2018-07-28] MEDS ORDERED: NORCO-5 PO PRN (18:00)
[2018-07-28] MEDS ORDERED: BENADRYL IV PRN (18:00)
[2018-07-28] MEDS ORDERED: ZOFRAN IV PRN (18:00)
[2018-07-28] MEDS ORDERED: DESYREL PO PRN (18:01)
[2018-07-28] MEDS: LR 1,000 ML IV SCH (18:06)
[2018-07-28 18:17] LABS: HEMOGLOBIN 9.2 g/dL (12.0-16.0); MCH 28.8 PG (27-31); MCHC 30.7 g/dL (33-37); MCV 93.8 FL (81-99); MPV 8.5 FL (7.4-10.4); RBC 3.2 XMIL (4.2-5.4); WBC 7.75 X1000 (4.8-10.8)
--- NOTE | 2018-07-28 18:32 | Diag Imaging Result Doc PS360 ---
EXAM: CHEST-PORTABLE HISTORY: lower ext edema TECHNIQUE: Portable chest COMPARISON: 07/23/2018 FINDINGS: The lungs are well expanded. The heart is not enlarged. A heart valve has been replaced and there is a vascular stent. There is a left-sided pacemaker. The vessels are not distended. No consolidation. Small left pleural effusion. IMPRESSION: Stable chest Electronically signed by Mainor Bullard 07/28/2018 6:30 PM
--- NOTE | 2018-07-28 18:49 | HISTORY AND PHYSICAL ---
UROLOGIST: Amol Dasilva MD. PRIMARY CARE PHYSICIAN: Juan Morton MD. CHIEF COMPLAINT: Bladder perforation. HISTORY OF PRESENT ILLNESS: Ms. Saunders is a 77-year-old female who was recently discharged from our service with supratherapeutic INR and abdominal wall hematomas as well as acute on chronic kidney injury. We are admitting her postoperatively from Dr. Dasilva status post cystoscopic examination of the bladder. Per report, she had some type of bladder perforation, and the decision was made to end the procedure and admit her for possible large-scale surgery in the coming days. After discharge l last week for the abdominal wall hematomas and supratherapeutic INR, she continued to have gross hematuria, and this was ultimately evaluated by Dr. Dasilva today with a transurethral examination of the bladder. He has asked us to admit the patient and assist with INR and anticoagulation management as she has a mechanical aortic valve. Currently her INR is 1.69. Her creatinine is 1.2. She has no other focal complaints at this time. She denies any other sources of bleeding. No chest pain. No shortness of breath. No overt abdominal pain. Her hemoglobin and hematocrit have actually improved from her last CBC. She is hemodynamically stable. We will admit her for further treatment and evaluation. PAST MEDICAL HISTORY: 1. Recent admission for coagulopathy with abdominal wall hematomas, managed medically. 2. Mechanical aortic valve, on Coumadin. 3. Chronic kidney disease stage 3. 4. Coronary artery disease. 5. Hypertension. 6. Seizure disorder 7. Asthma. 8. Status post pacemaker. 9. 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 PAST SURGICAL HISTORY: She has had aortic valve replacement, thoracic aortic aneurysm stenting, CABG, pacemaker placement, hysterectomy, bilateral shoulder repair. SOCIAL HISTORY: She lives with family. No tobacco, alcohol or drug use. HOME MEDICATIONS: Have not yet been compiled by the nursing staff; however, discharge medications from 07/23/2018 are: Coumadin 4 mg at bedtime, MiraLAX 17 grams twice a day, Myrbetriq 25 mg daily, carvedilol 3.25 mg twice a day, Zonegran 200 mg at bedtime, lamotrigine 100 mg every morning, Zonisamide 100 mg daily, Symbicort 160/4.5 two puffs inhaled twice a day, Simvastatin 40 mg at bedtime, Lasix 20 mg twice a day, Lexapro 20 mg daily, trazodone 50 mg at bedtime as needed. ALLERGIES: Levaquin. FAMILY HISTORY: Father with COPD, mother with what appears to be sudden cardiac . REVIEW OF SYSTEMS: A 10-point review of systems is obtained and found to be negative with the exception of the HPI. PHYSICAL EXAMINATION: VITAL SIGNS: Blood pressure is 152/56, heart rate 60, respiratory rate 16, O2 saturation 96% on room air, temperature 98.1. GENERAL: Elderly female lying in the hospital bed in no acute distress. NEUROLOGIC: Awake, alert and oriented. Follows commands. No focal deficits. HEENT: Head is atraumatic, normocephalic. Pupils equal, round, and reactive to light. Oral mucosa is a bit dry. NECK: Trachea is midline. There is no JVD. CHEST: Clear to auscultation. CV: Regular rate and rhythm. Very mild systolic click noted. GI: Soft and nondistended. Bowel sounds are hypoactive. EXTREMITIES: Have 1+ edema bilaterally. DIAGNOSTIC DATA: WBCs 8.16, hemoglobin 10.3, hematocrit 34.4, platelet count 307, INR 1.69. Sodium 134, potassium 3.4, chloride 97. CO2 is 26, anion gap 11, BUN 15, creatinine 1.2, glucose 99, calcium 8.7. ASSESSMENT/PLAN: 1. Bladder perforation status post cystoscopy. Management per Dr. Dasilva with Urology. Will continue with pain control, incentive spirometry and early ambulation. Given her history of supratherapeutic INR and bleeding with gross hematuria present in her Terrell, we will trend her hemoglobin and hematocrit and transfuse if necessary. 2. Mechanical aortic valve, on long-term anticoagulation with Coumadin: Her INR is slightly supratherapeutic for surgical procedures. We will give her vitamin K intravenously now with concurrent initiation of therapeutic Lovenox. Will monitor her INR daily and monitor for any bleeding very closely while trending hematocrit and hemoglobin. 3. Chronic kidney disease stage 3: Stable. Will monitor for now. We are rechecking a chemistry. She has had a recent significant increase and subsequent return to baseline in her creatinine. 4. Recent abdominal wall hematomas: This overall stable. No complaints of abdominal pain. Hemoglobin and hematocrit are stable, actually somewhat improved. Management of coagulation per number 2. 5. History of seizure disorder. Will continue home medications once reconciled. 6. History of coronary artery disease. Denies any chest pain or dyspnea at this time. We are checking a chest x-ray. Will monitor telemetry. 7. Deep venous thrombosis prophylaxis provided with Lovenox, further recommendations to follow. Dictated by CHAY Goldsmith for Joseph Jacob MD cc: CHAY Goldsmith Agree with above. The following is my own face to face assessment and evaluation. Patient seen after procedure. slightly drowsy but easily arousable. cystoscopy performed and unexpectedly identified bladder perforation. abdomen benign on exam and bowel sounds somewhat decreased but present. MTDD
[2018-07-28 19:04] LABS: CALCIUM 8.3 mg/dL (8.8-10.2); CREATININE 1.1 mg/dL (0.5-0.9); MAGNESIUM 1.9 mg/dL (1.5-2.7); POTASSIUM 3.7 mmol/L (3.5-5.1)
--- NOTE | 2018-07-28 20:44 | OPERATIVE NOTE ---
PROCEDURE DATE: 07/28/2018 PREOPERATIVE DIAGNOSIS: Hematuria. POSTOP DIAGNOSIS: 1. Hematuria. 2. Extra peritoneal bladder rupture. PROCEDURE PERFORMED: Cystoscopy, clot evacuation, cystogram, and catheter placement. SURGEON: Dr. Dasilva. CORN HUSKER MACHINE OPERATOR: None. COMPLICATION: None. BLOOD LOSS: 5 mL. DRAINS: 26-Montserratian catheter. SPECIMENS REMOVED: Blood clots. FINDINGS: The patient had a normal urethra no evidence any stricture disease or papillary lesion. On entering into the bladder the bladder mucosa appeared to be healthy on the posterior wall and on the right side of the bladder: Pulling the scope back to the bladder neck a area of extraperitoneal fat seem to be visualized with clot present overlying this area. Both ureteral orifices were visualized with efflux of clear yellow urine and appeared that there was a extraperitoneal bladder rupture present at the base of the bladder near the and bladder neck. Performed a cystogram through the scope with 100 mL of Omipaque that showed extraperitoneal leakage of contrast. It seemed to be contained to the extraperitoneal space. Patient has been on Coumadin and decision was made to place a 26-Montserratian Terrell catheter for optimization of drainage and discuss with the patient repair of her bladder injury, as she has expressed desire in the past to not undergo large operative procedures. INDICATION FOR PROCEDURE: Ms. Saunders is a 77-year-old with a complicated past medical history including chronic anticoagulation due to history of cardiac valve replacement and multiple DVTs, aortic aneurysm, hypertension, hyperlipidemia, coronary artery disease, who presented to the office yesterday with gross hematuria for approximately 5 days. The patient was discharged from the hospital to rehab on and had persistent hematuria over the weekend. On evaluation she is peeing straight blood with clots and leaking urine. She states that the urine has just been leaking out of her since her discharge from the hospital and denies prior incontinence episodes. She states she was having blood in the urine at the initial time of catheter placement in the hospital. However this improved and then she was discharged home. Catheter was removed and she was voiding however since being at rehab she has had tremayne blood. I attempted cystoscopy in the office today which showed a large amount of clot and what appeared to be the bladder. No obvious bladder mucosa lesions were seen in the office however there was significant amount of sediment and blood within field which made it difficult to completely visualize. Due to the large clot burden, it was recommended that she proceed for cystoscopy, clot evacuation and fulguration of bleeding. Risks, benefits, alternatives surgical procedure discussed with patient and her daughter, patient elected to proceed. DESCRIPTION OF PROCEDURE: After informed consent was obtained the patient brought to the operating room placed on the table in supine position. She underwent anesthesia with endotracheal intubation received preop antibiotics and was placed into dorsal lithotomy position, she was prepped and draped in a sterile fashion. A preoperative time-out was performed. All parties in agreement including anesthesia, surgical and nursing staff. Next a 21 cystourethroscope was inserted through the urethra which was normal caliber no evidence of any stricture disease or papillary lesions. On bladder entry she had relatively normal bladder mucosa. There were several small clots present at the base of the bladder, but I did not see the large clot seen in the office. Both ureteral orifices were visualized with efflux of urine. Looking to the right side of the bladder the bladder appeared to be healthy with no evidence of any trauma or lesions. The dome of the bladder appeared to be without lesions. No erythema was seen on the wall of the bladder. On inspection of the left side of the bladder pulling back to the bladder neck a large amount of clot was visualized and what appeared initially to be some fat versus organized clot in this location. Pulling scope back to the bladder neck there was some bullous changes in the left base of the bladder and pulling all way to the bladder neck what appeared to be a large extraperitoneal hole was visualized. Looking at this hole there was clot present within it. I removed the cystoscope and then placed 26-Montserratian resectoscope through the urethra and into the bladder draining the bladder with several small clots being removed. I used this to better assess whether there was just a large clot present within the left portion of the bladder and extracted a few pieces of clot with the loop. No cautery was used. This allowed better visualization for the edges of the clot burden and showed evidence of extravesical fat and had a large tear within the mucosa measuring approximately a 1 to 2 cm in diameter. Due to concern for a large extraperitoneal bladder rupture I obtained Omnipaque and diluted this with saline, injected through the scope approximately 100 mL. This outlined a normal bladder but there is evidence of contrast that went external to the left portion of the bladder creating "flame" appearance. Several images were obtained which showed no evidence extravasation of contrast into the intraperitoneal space. The patient had expressed desire to not undergo large operative procedure preoperatively. She was clinically stable and her labs were within her normal limits. I believed that her surgical risk was less if we had her off Coumadin and bridged with Lovenox in preparation for surgery. Decision was made to leave her bladder full and place a Terrell catheter. Placed a 26 F catheter into the bladder with drainage for clear, pink urinary output. This was irrigated with good return. Patient was awoken and taken to recovery. DISPOSITION: Talked with patient's daughter after procedure and notified her of my findings of a bladder injury. I told her that I am uncertain of the cause or chronicity. I also discussed with the patient in recovery area. I told both of them, that I would recommend repair of her bladder rupture. Will plan to discuss further with her tomorrow. cc: Amol Dasilva MD MTDD
[2018-07-28] MEDS ORDERED: COUMADIN PO SCH (21:00)
[2018-07-28] MEDS: DUONEB (A & A) INH SCH (22:00)
[2018-07-28] MEDS: ZOCOR PO SCH (22:29)
[2018-07-28] MEDS: LASIX PO SCH (22:29)
[2018-07-28] MEDS: COREG PO SCH (22:30)
[2018-07-28] MEDS: COLACE PO SCH (22:31)
[2018-07-28] MEDS: PEPCID PO SCH (22:31)
[2018-07-28] MEDS: LOVENOX SUBQ SCH (22:32)
[2018-07-28] MEDS: LAMICTAL PO SCH (22:32)
[2018-07-28] MEDS: MIRALAX PO SCH (22:33)
[2018-07-28 23:12] LABS: HEMATOCRIT 28.2 % (37.0-47.0); HEMOGLOBIN 8.7 g/dL (12.0-16.0)
[2018-07-28] MEDS: KEFZOL 1 GM/D5W 1 GM/50 ML IVPB IV SCH (23:28)
[2018-07-28] MEDS: ZONEGRAN PO SCH (23:29)
[2018-07-29] MEDS: DUONEB (A & A) INH SCH ×4 (05:10→21:47)
[2018-07-29] MEDS: KEFZOL 1 GM/D5W 1 GM/50 ML IVPB IV SCH ×3 (05:40→14:40)
[2018-07-29 06:33] LABS: BASO# 0.01 X1000 (0.0-0.2); BASO% 0.2 % (0.0-0.8); EOS# 0.02 X1000 (0.0-0.7); EOS% 0.3 % (0.0-10.0); HEMATOCRIT 26.9 % (37.0-47.0); IMM GRAN# 0.02 X1000 (0.0-0.04); IMM GRAN% 0.3 % (0.0-0.5); LYMPH# 0.66 X1000 (1.2-3.4); LYMPH% 10.8 % (20.5-51.1); MCH 27.8 PG (27-31); MCHC 29.7 g/dL (33-37); MCV 93.4 FL (81-99); MONO# 0.42 X1000 (0.11-0.59); MONO% 6.9 % (1.7-9.3); MPV 8.9 FL (7.4-10.4); NEUT# 4.97 X1000 (1.4-6.5); NEUT% 81.5 % (42.2-75.2); PLT 287 X1000 (130-400); RBC 2.88 XMIL (4.2-5.4); RDW 16.8 % (11.5-14.5)
[2018-07-29 06:49] LABS: INR 1.52; PROTIME 19.5 Seconds (11.0-16.0)
[2018-07-29] MEDS: SYMBICORT 160/4.5 MICROGM INHALER INH SCH ×3 (06:53→21:47)
--- NOTE | 2018-07-29 06:57 | PROGRESS NOTE ---
DATE: 07/29/2018 SUBJECTIVE: Postop day 1 from cystoscopy, clot evacuation and placement of urethral catheter. The patient has been doing well, draining light reddish urine. No clots present within the catheter. Has made good urinary output overnight. Vital signs are stable. Denies any suprapubic pain or discomfort. Slept comfortably. No complaints this morning. OBJECTIVE: Vital Signs: Temperature 97.8 degrees, heart rate 60, blood pressure 119/51, oxygen saturation 97% on room air. Respiratory: Good respiratory effort without audible wheezing or rales. General: No acute distress. Resting comfortably in bed, alert, oriented x3. Abdomen: Soft, nontender, nondistended. No palpable masses. No hepatosplenomegaly. : No suprapubic tenderness. No CVA tenderness. Urethral catheter in place draining light pink urine. No evidence of clots present within the catheter or drainage bag. LABS: A.M. labs are still yet to be recorded. The patient's postop labs showed an H and H of 9.2 and 30. Creatinine stable at 1.1. ASSESSMENT/PLAN: Ms. Saunders is a 77-year-old who has a history of coronary artery disease, COPD, artificial heart valve, DVTs, who presented in consultation regarding hematuria to the office on Friday. The patient had a catheter placed and irrigated out clots. Had a office cystoscopy yesterday which showed concern for a large amount of clot within the bladder. Was taken the operating room yesterday and on inspection, her bladder was actually free of large clot burden. However, she did have evidence of a large left lateral wall extraperitoneal bladder rupture and extravasation of contrast was seen on cystogram. The patient's injury appears to be almost at the bladder neck and the patient has had some incontinence prior to catheter placement. The patient is on Coumadin with an elevated INR. In talking with the patient I recommended consideration for surgical intervention to close this hole. The patient previously expressed concerns about undergoing surgical operations. I told her that this area may close spontaneously around the catheter. I think either way, the patient is at a high risk of urinary incontinence afterwards due to the location of the injury. Uncertain what caused this. The patient has had multiple CT scans done recently which showed a large amount of clot displacing the bladder toward the right side of the pelvis. I reviewed imaging again from last hospitalization and catheter looks as if it was displaced to the right due to clots. I think over time one of these clots may have just pressure necrosed into the bladder and leading to her significant hematuria. We will continue with indwelling catheter at this time. Follow-up her morning labs. We will tentatively plan to perform surgery tomorrow for repair of her extraperitoneal bladder rupture. This was discussed with the patient at length. cc: Amol Dasilva MD [facility]
[2018-07-29 07:07] LABS: CALCIUM 8.1 mg/dL (8.8-10.2); CREATININE 1.2 mg/dL (0.5-0.9)
[2018-07-29] MEDS: LR 1,000 ML IV SCH (08:15)
[2018-07-29] MEDS: LAMICTAL PO SCH ×2 (08:16→21:17)
[2018-07-29] MEDS: PERIDEX MT SCH (08:16)
[2018-07-29] MEDS: ZONEGRAN PO SCH ×2 (08:16→21:19)
[2018-07-29] MEDS: MYRBETRIQ E.R. PO SCH (08:17)
[2018-07-29] MEDS: COLACE PO SCH (08:17)
[2018-07-29] MEDS: LOVENOX SUBQ SCH ×2 (08:17→21:20)
[2018-07-29] MEDS: LEXAPRO PO SCH (08:17)
[2018-07-29] MEDS: MIRALAX PO SCH (08:17)
[2018-07-29] MEDS: LASIX PO SCH ×2 (08:17→21:19)
[2018-07-29] MEDS: PEPCID PO SCH ×2 (08:17→21:17)
[2018-07-29] MEDS: COREG PO SCH ×2 (08:18→21:19)
--- NOTE | 2018-07-29 11:37 | Diag Imaging Result Doc PS360 ---
EXAM: FLUROSCOPY CYSTO 07/28/2018 HISTORY: BLADDER FISTULA TECHNIQUE: Six images COMMENT: There is apparent contrast the opacification of the urinary bladder on the right side of the pelvis and an irregular collection of contrast is seen on the left side. This may represent extravasated contrast in a hematoma or other space. No post void image is obtained. IMPRESSION: Displacement of the urinary bladder to the right with extravasation of contrast on the left side of the pelvis. Electronically signed by Noam Gleason 07/29/2018 11:35 AM
[2018-07-29] MEDS ORDERED: CALMOSEPTINE OINTMENT TOP PRN (13:21)
[2018-07-29 13:42] LABS: HEMATOCRIT 28.8 % (37.0-47.0); HEMOGLOBIN 8.8 g/dL (12.0-16.0)
[2018-07-29 14:21] LABS: URINE SOURCE CATH
[2018-07-29 14:28] LABS: UR EPITHELIAL CELLS <10 /HPF (<10); URINE BACTERIA NEGATIVE /HPF; URINE RBC TNTC /HPF (<10); URINE WBC TNTC /HPF (<10)
--- NOTE | 2018-07-29 14:35 | PROGRESS NOTE ---
DATE: 07/29/2018 INTERVAL HISTORY: Patient with continued gross hematuria without clot. Largely asymptomatic. No abdominal pain, nausea, vomiting, diarrhea, fever, chills. No acute events overnight. Aside from hematuria no signs or symptoms of other bleeding. REVIEW OF SYSTEMS: Twelve point review of systems negative except as per interval history. LABS: Initial hemoglobin 8, repeat 8.8. Initial hematocrit 26.9, repeat 28.8, platelets 287,000. INR 1.5. Basic metabolic panel unremarkable aside from creatinine 1.2. VITAL SIGNS: T-max 98.2 degrees, pulse 66, respirations 16, blood pressure 115/68, O2 saturation 98% on room air. PHYSICAL EXAMINATION: General: No acute distress. Vitals as above. HEENT: Normocephalic, atraumatic. Moist mucous membranes. No cervical adenopathy. Cardiovascular: Regular rate and rhythm. No murmurs, rubs, or gallops. Pulmonary: Clear to auscultation bilaterally. No wheezing, rales, or rhonchi. Abdomen: Soft, nontender, nondistended. Bowel sounds decreased but present. Extremities: Peripheral pulses intact. Trace to 1+ edema unchanged. Neurologic: Cranial nerves grossly intact. No focal deficits identified. Psychiatric: Normal mood and affect. Awake, alert, oriented x3. Skin: No new rashes or lesions identified. ASSESSMENT AND PLAN: 1. Bladder perforation. Patient was continuing to have hematuria at home, so was admitted by Dr. Dasilva for cystoscopy. During cystoscopy, she was found to have an occult bladder perforation. Tentative plan is for surgical repair tomorrow. Withholding home Coumadin and vitamin K given for reversal. INR remains slightly elevated, but coming down. The patient bridging with Lovenox given mechanical aortic valve. Recommend restarting Lovenox whenever possible after surgery. Terrell in place and draining dark red urine. 2. Mechanical aortic valve on long-term anticoagulation with Coumadin at home. INR coming down after vitamin K yesterday. On a Lovenox bridge. Continue to monitor INR and hemoglobin and hematocrit . 3. Anemia with a slight decrease after admission but improved on recheck. Largely stable. Likely primarily anemia of chronic disease. 4. Chronic kidney disease 3. Creatinine essentially stable. Continue to monitor labs. 5. Recent abdominal wall hematomas. Overall stable. Blood counts as above. Was tolerating anticoagulation well prior to previous discharge and at home prior to admission. 6. Seizure disorder. Continue home medications. No seizure activity here. 7. Coronary artery disease. Continue home medications. Stable at this time. 8. Deep vein thrombosis prophylaxis. Seth currently.
[2018-07-29 15:11] LABS: BILIRUBIN URINE NEGATIVE (NEGATIVE); BLOOD URINE LARGE (NEGATIVE); COLOR RED; GLUCOSE URINE NEGATIVE (NEGATIVE); KETONE URINE NEGATIVE (NEGATIVE); LEUKOCYTES URINE MODERATE (NEGATIVE); NITRITE URINE NEGATIVE (NEGATIVE); PROTEIN URINE 200 mg/dL (NEGATIVE); SP GRAVITY URINE 1.008; TURBIDITY URINE TURBID (CLEAR); UROBILINOGEN URINE NORMAL (NORMAL)
[2018-07-29] MEDS: ZOCOR PO SCH (21:19)
[2018-07-30] MEDS: COLACE PO SCH ×3 (01:00→09:31)
[2018-07-30] MEDS: MIRALAX PO SCH ×2 (01:00→09:31)
[2018-07-30] MEDS: PERIDEX MT SCH ×2 (01:10→09:31)
[2018-07-30] MEDS: DUONEB (A & A) INH SCH ×4 (03:25→21:05)
[2018-07-30 06:05] LABS: BASO# 0.03 X1000 (0.0-0.2); BASO% 0.5 % (0.0-0.8); EOS# 0.21 X1000 (0.0-0.7); EOS% 3.5 % (0.0-10.0); HEMATOCRIT 26.4 % (37.0-47.0); HEMOGLOBIN 7.8 g/dL (12.0-16.0); IMM GRAN# 0.02 X1000 (0.0-0.04); IMM GRAN% 0.3 % (0.0-0.5); LYMPH# 0.73 X1000 (1.2-3.4); MCH 27.6 PG (27-31); MCHC 29.5 g/dL (33-37); MCV 93.3 FL (81-99); MONO# 0.67 X1000 (0.11-0.59); MPV 8.8 FL (7.4-10.4); NEUT# 4.42 X1000 (1.4-6.5); NEUT% 72.7 % (42.2-75.2); PLT 283 X1000 (130-400); RBC 2.83 XMIL (4.2-5.4); RDW 16.7 % (11.5-14.5); WBC 6.08 X1000 (4.8-10.8)
[2018-07-30 06:10] LABS: INR 1.26; PROTIME 16.8 Seconds (11.0-16.0)
[2018-07-30 06:28] LABS: CALCIUM 8.2 mg/dL (8.8-10.2); MAGNESIUM 1.8 mg/dL (1.5-2.7); POTASSIUM 3.2 mmol/L (3.5-5.1)
--- NOTE | 2018-07-30 06:56 | PROGRESS NOTE ---
DATE: 07/30/2018 SUBJECTIVE: No acute events yesterday. Overall is doing well. Has had good urinary output with almost 3 L of light red urine. It appears to be much clearer and thinner than yesterday. No evidence of clot passage. Denies any suprapubic tenderness or abdominal tenderness. OBJECTIVE: Vital Signs: Remains afebrile with stable vital signs. Temperature 98.9 degrees, heart rate 63, blood pressure 137/52, oxygen saturation 96%. General: No acute distress. Resting comfortably in bed, alert, oriented x3. Respiratory: Good respiratory effort without audible wheezing or rales. Cardiovascular: No tachycardia. Abdomen: Soft, nontender, nondistended. No palpable masses. Genitourinary: No suprapubic tenderness. No CVA tenderness. Urethral catheter in place draining thin reddish urine. No evidence of clots present. LABS: White blood cell count 6.0, hemoglobin 7.8, hematocrit 26.4, platelets 283,000. INR 1.26. Cr 1.0. ASSESSMENT AND PLAN: Ms. Saunders is a 77-year-old who presents for hematuria in the office. Her hematuria persisted over several days after discharge from the hospital for elevated INR and pelvic and abdominal hematomas. Urology evaluated the patient and placed the catheter draining a few clots but had persistent hematuria overnight and underwent cystoscopy in the office, which showed a large clot burden with concern for a significant clot within her bladder. On inspection in the operating room, the patient had a large extraperitoneal bladder rupture due to likely pressure necrosis from hematomas pushing into the bladder. This was evaluated and decision was made to wake the patient up and keep indwelling catheter and discuss surgical options as she was clinically stable. After complete discussion, patient elected to proceed with surgical repair for bladder injury. Discussed risks, benefits, and alternatives to procedure today. The patient continues to elect to proceed. We will plan to proceed with exploratory laparotomy and repair of extraperitoneal bladder rupture later today. Please keep NPO with sips of water for pills. We will follow up a.m. labs. Please call with questions or concerns. cc: Amol Dasilva MD [facility]
[2018-07-30] MEDS: PEPCID PO SCH (09:31)
[2018-07-30] MEDS: ZONEGRAN PO SCH (09:31)
[2018-07-30] MEDS: MYRBETRIQ E.R. PO SCH (09:31)
[2018-07-30] MEDS: COREG PO SCH (09:32)
[2018-07-30] MEDS: LEXAPRO PO SCH (09:32)
[2018-07-30] MEDS: LAMICTAL PO SCH (09:32)
[2018-07-30] MEDS: LASIX PO SCH (09:32)
[2018-07-30] MEDS: SYMBICORT 160/4.5 MICROGM INHALER INH SCH ×2 (09:40→21:06)
[2018-07-30] MEDS: POTASSIUM CHLORIDE 20 MEQ/SWI 20 MEQ/100 ML IVPB IV SCH ×2 (10:47→12:33)
[2018-07-30] MEDS: LR 1,000 ML IV SCH (10:47)
[2018-07-30] MEDS ORDERED: DIPRIVAN 1% ONE (13:48)
[2018-07-30] MEDS ORDERED: XYLOCAINE-MPF 2% ONE (13:48)
[2018-07-30] MEDS ORDERED: QUELICIN (DOSE) ONE (13:48)
[2018-07-30] MEDS ORDERED: ZEMURON ONE (13:48)
--- NOTE | 2018-07-30 14:21 | PROGRESS NOTE ---
DATE: 07/30/2018 INTERVAL HISTORY: Patient remains presently asymptomatic, but with continued hematuria. Currently n.p.o. for bladder perforation repair later today. Her only complaint is of dry mouth and thirst. REVIEW OF SYSTEMS: Ten point review of systems negative except as per interval history. LABS: WBC 6.0, hemoglobin of 7.8, hematocrit 36.4, platelet 283,000. INR 1.26. Sodium 141, potassium 3.2, creatinine 1.4. VITALS: T-max 99.2, pulse 60, respirations 16, blood pressure 120/59, O2 sat 96% on room air. PHYSICAL EXAMINATION: General: No acute distress. Vitals: As above. HEENT: Normocephalic, atraumatic. Moist mucous membranes. NECK: No cervical adenopathy. Cardiovascular: Regular rate and rhythm. Slight click in left upper sternal border. Murmur unchanged. No rubs or gallops. Pulmonary: Clear to auscultation bilaterally. No wheezing, rales or rhonchi. Abdomen: Soft, nontender, nondistended. Bowel sounds remain decreased but present. Extremities: Peripheral pulses intact. Trace lower extremity edema, unchanged. Neurologic: Cranial nerves grossly intact. No focal deficits identified. Psychiatric: Normal mood and affect. Awake, alert, oriented x 3. Skin: No new rashes or lesions identified. ASSESSMENT AND PLAN: 1. Bladder perforation. Patient with hematuria at home, cystoscopy on admission showing occult bladder perforation. Currently n.p.o. for surgical repair later today. Home Coumadin reversed. Was bridged with Lovenox. Restart Lovenox whenever Surgery is okay with it after surgery for her mechanical aortic valve. Terrell remains In place, draining dark red urine. 2. Mechanical aortic valve, on long-term anticoagulation with Coumadin. INR now down after vitamin K administration in anticipation of surgery. Lovenox bridge was used. Restart Lovenox and Coumadin after surgery whenever Urology is amenable. 3. Anemia, down slightly again today. May be some aspect of acute blood loss anemia related to ongoing hematuria. We will continue to monitor. No need for transfusion at this time. 4. Chronic kidney disease stage 3. Creatinine essentially stable to slightly improved. Continue to monitor labs. 5. Recent abdominal hematoma, stable blood counts as above. Was tolerating anticoagulation well prior to discharge and at home prior to admission. 6. Seizure disorder. Continue home medications. No seizure activity identified. 7. Coronary artery disease. Continue home medications and monitor. 8. DVT prophylaxis. Seth/Annie. NESHA
[2018-07-30] MEDS ORDERED: KEFZOL 1 GM/D5W 1 GM/50 ML IVPB ONE (15:46)
[2018-07-30] MEDS ORDERED: DECADRON ONE (16:09)
[2018-07-30] MEDS ORDERED: ZOFRAN ONE (16:09)
[2018-07-30] MEDS ORDERED: ROBINUL ONE ×2 (16:09→17:37)
[2018-07-30] MEDS ORDERED: FENTANYL ONE ×2 (17:18→17:19)
[2018-07-30] MEDS ORDERED: DILAUDID ONE (17:51)
[2018-07-30 18:49] LABS: HEMATOCRIT 28.1 % (37.0-47.0); HEMOGLOBIN 8.4 g/dL (12.0-16.0); MCH 28.8 PG (27-31); MCHC 29.9 g/dL (33-37); MCV 96.2 FL (81-99); MPV 8.7 FL (7.4-10.4); RBC 2.92 XMIL (4.2-5.4); RDW 17.1 % (11.5-14.5); WBC 8.26 X1000 (4.8-10.8)
[2018-07-30] MEDS ORDERED: NORCO-7.5 PO PRN (18:59)
[2018-07-30 19:03] LABS: CALCIUM 8.3 mg/dL (8.8-10.2)
--- NOTE | 2018-07-30 21:48 | OPERATIVE NOTE ---
PROCEDURE DATE: 07/30/2018 PREOPERATIVE DIAGNOSES: 1. Hematuria. 2. Extraperitoneal bladder rupture. POSTOPERATIVE DIAGNOSES: 1. Hematuria. 2. Extraperitoneal bladder rupture. PROCEDURE PERFORMED: 1. Cystoscopy with left ureteral stent placement. 2. Exploratory laparotomy with repair of extraperitoneal bladder rupture. SURGEON: Amol Dasilva MD. [employer] VICE PRESIDENT: Neo Peña MD. COMPLICATIONS: None. BLOOD LOSS: 50 mL. DRAINS: 1. 6 x 24 left ureteral stent. 2. 20-Tuvaluan Terrell catheter. 3. #19 Will drain. SPECIMENS REMOVED: None. OPERATIVE FINDINGS: The patient had cystoscopy showed a normal urethra. On entering into the bladder, there was a large hole present within the left lateral wall of the bladder at the bladder neck with clot present in the extraperitoneal space. Both ureteral orifices were visualized. The left ureteral orifice was slightly displaced due to pressure from external hematoma. I was able to pass a wire through an open-ended catheter up into the collecting system and fluoroscopically visualized the coil within the kidney. A 6 x 24 left ureteral stent was then replaced. Good drainage was seen through the stent. A 20F Terrell catheter was then inserted. The patient then underwent exploratory laparotomy. There was a moderate amount of clot and hematoma on the left side of the bladder which was removed. Obvious hole was visualized with a catheter being present within the bladder. This hole was systematically closed with 2-0 Vicryl and good approximation of mucosal edges was visualized. No evidence of any drainage from the bladder was seen. The patient had a 19 round Will drain placed. INDICATION FOR PROCEDURE: Ms. Saunders is a 77-year-old with multiple health comorbidities who presented to Urology office on Friday with hematuria. The patient had significant hematuria for over 5 days. A catheter was placed easily into the bladder and flushed of clot. However, patient continued to have bleeding both through the catheter as well as around the catheter. She underwent cystoscopy in the office with concern for a large clot burden within her bladder when visualizing the bladder, however there was such a clot burden, it was difficult to see the bladder mucosa. She has taken to the operating room later that afternoon for cystoscopy and clot evacuation and was found to have a extraperitoneal bladder rupture at the vesicourethral junction with a large amount of clot present within the extravesical space that was compression the bladder. Patient had a large hole on the left side of her bladder, with exposed extravesical fat. Uncertainty, of the chronicity of this. However, imaging was reviewed retrospectively, which showed likely presence for over a week now. Catheter was placed at that time and the drain was seen through the catheter. Due to the patient's desire to forego surgical intervention, the patient was awoken prior to proceeding straight to exploratory laparotomy and closure exploration of bladder injury. Discussed the procedure at length with the patient and the patient's family, and they desire to proceed. Risks, benefits, and alternatives of procedure were discussed with patient and patient elected to proceed. DESCRIPTION OF PROCEDURE: After informed consent was obtained, the patient was brought to the operating room, placed on the operative table in supine position. She underwent general anesthesia with endotracheal intubation and received preoperative antibiotics. The patient was then placed into a dorsal lithotomy position. Was prepped and draped in usual sterile fashion, at which time a preop time-out was performed with all parties in agreement, including anesthesia, surgical and nursing staff. At which time a 21-Tuvaluan cystourethroscope inserted through the urethra showing normal bladder mucosa on the right side of the bladder and large bladder injury at the left lateral wall. This appeared to be slightly larger than previous cystoscopy, clot was seen external to the bladder with extravesical fat visualized. Both ureteral orifices visualized. However, the left ureteral orifice was slightly displaced by external compression. Due to concern over the left ureteral orifice and proximity to necessary bladder closure, I wanted to place a stent prior to the procedure. I placed a wire through an open- ended catheter, which easily cannulated the left ureteral orifice and the wire was seen in the collecting system. The open-ended catheter was removed and a 6 x 24 stent was easily passed through the scope, and fluoroscopically visualized to curl within the kidney and endoscopically visualized in the bladder. The patient's bladder was left full and a 20-Tuvaluan Terrell catheter was inserted through the urethra and into the bladder and insufflated with 10 mL of sterile water and placed to gravity drainage at which time previously prepped abdomen was evaluated. Palpating the pubic symphysis, an incision was made superior to this for approximately 8-10 cm using a 10 blade, using electrocautery through the overlying adipose and connective tissue layers down to the fascia. This was cleaned off superiorly and inferiorly. A small higinio was made within the fascia in the midline and this was carried down inferiorly and superiorly through the rectus fascia splitting the rectus abdominis until the peritoneum was seen inferior to the rectus abdominis. Bladder was encountered and then dissected away and the space of Retzius was entered. A large amount of clot was seen on the left side of the bladder. This was extracted and irrigated out. Ultimately, a large hole was seen within the left lateral wall of the bladder. The balloon of the catheter was easily visualized as well as the stent. Hole was seen on the anterior surface of the bladder near the left bladder neck. Using a Charline self-retractor, to allow for good visualization and starting at the most superior portion, a 2-0 Vicryl suture was then used to approximate the mucosa in a running fashion, being sure to prevent to not back wall the posterior wall of the bladder. This was carried inferiorly until the bladder injury was closed. On palpation, no obvious exposed defects were seen and the catheter was no longer palpated or visualized. Attention was placed to keeping away from the stent as the stent was very near our closure. Good approximation of all tissues was seen with no evidence of any drainage from the bladder and good drainage was seen through urethral catheter which clear, significantly during the procedure. The wound was vigorously irrigated and the small peritoneotomy was closed with a 2-0 Vicryl in a [id number] suture to limit risk of herniation of bowel into and around the bladder. After vigorously irrigating the wound, a 19 round Will drain was obtained. A small incision was made in the left lower quadrant and using a tonsil, I was able to pass the drain into the abdomen and was cut short and sutured down with a nylon suture, at which time a 0-looped Maxon suture was used to close the fascia in a running fashion. This was carried from inferior to superior with regularly tightening. No evidence of any fascial defect was seen. This was tied down and a suture was used to dunk the Maxon suture. Following this, 2-0 Vicryl was used to approximate the Dharmesh's layer and malgorzata were used to close the skin. Terrell catheter is placed to gravity drainage and Will drain was placed to bulb suction. The patient was then awoken and was taken to recovery in stable condition. All suture and lap counts were correct. Dr. Peña was present for all cantu portions of this procedure and acted as my surgical dental assistant. Postop labs will be obtained and will be followed up. The patient will be transferred back to the floor for observation. cc: Amol Dasilva MD [facility]
[2018-07-31] MEDS: DUONEB (A & A) INH SCH ×4 (03:50→21:05)
[2018-07-31] MEDS: LR 1,000 ML IV SCH ×2 (04:26→17:22)
[2018-07-31] MEDS: MORPHINE IV PRN ×4 (04:26→20:40)
[2018-07-31] MEDS: COLACE PO SCH ×3 (04:46→20:25)
[2018-07-31] MEDS: ZONEGRAN PO SCH ×3 (04:47→20:25)
[2018-07-31] MEDS: ZOCOR PO SCH ×2 (04:47→20:24)
[2018-07-31] MEDS: MIRALAX PO SCH ×3 (04:48→20:27)
[2018-07-31] MEDS: PERIDEX MT SCH ×3 (04:48→23:18)
[2018-07-31] MEDS: PEPCID PO SCH ×3 (04:48→20:24)
[2018-07-31] MEDS: LASIX PO SCH ×3 (04:48→20:24)
[2018-07-31] MEDS: LAMICTAL PO SCH ×3 (04:49→20:24)
[2018-07-31] MEDS: COREG PO SCH ×3 (04:49→20:25)
[2018-07-31 05:54] LABS: INR 1.23; PROTIME 16.5 Seconds (11.0-16.0)
[2018-07-31 06:04] LABS: BASO# 0.01 X1000 (0.0-0.2); BASO% 0.1 % (0.0-0.8); EOS# 0.05 X1000 (0.0-0.7); EOS% 0.7 % (0.0-10.0); HEMATOCRIT 26.6 % (37.0-47.0); HEMOGLOBIN 7.9 g/dL (12.0-16.0); IMM GRAN# 0.03 X1000 (0.0-0.04); IMM GRAN% 0.4 % (0.0-0.5); LYMPH# 0.64 X1000 (1.2-3.4); LYMPH% 9.2 % (20.5-51.1); MCH 28.1 PG (27-31); MCHC 29.7 g/dL (33-37); MCV 94.7 FL (81-99); MONO# 0.71 X1000 (0.11-0.59); MONO% 10.3 % (1.7-9.3); MPV 8.7 FL (7.4-10.4); NEUT# 5.48 X1000 (1.4-6.5); NEUT% 79.3 % (42.2-75.2); PLT 268 X1000 (130-400); RBC 2.81 XMIL (4.2-5.4); RDW 16.8 % (11.5-14.5); WBC 6.92 X1000 (4.8-10.8)
[2018-07-31 06:38] LABS: CALCIUM 7.9 mg/dL (8.8-10.2); CREATININE 1.1 mg/dL (0.5-0.9); MAGNESIUM 1.8 mg/dL (1.5-2.7); POTASSIUM 4.1 mmol/L (3.5-5.1)
--- NOTE | 2018-07-31 08:16 | PROGRESS NOTE ---
DATE: 07/31/2018 SUBJECTIVE: Postop day 1 from cystoscopy and left ureteral stent placement, exploratory laparotomy, and repair of bladder injury. The patient's procedure went well. The patient has been having a mild amount of pain since then. Her catheter has drained well with no evidence of any clots. Catheter is draining light pink to thin reddish urine. The patient's vital signs remain stable. The patient denies any flatus, nausea, or vomiting. OBJECTIVE: Vital Signs: Temperature 98.5 degrees, heart rate 69, blood pressure 155/65, and oxygen saturation 100% on 2 L nasal cannula. General: No acute distress. Resting comfortably in bed. Alert and oriented x3. Respiratory: Good respiratory effort without audible wheezing or rales. Nasal cannula in place. Cardiovascular: No evidence of tachycardia. Lower extremity edema. Abdomen: Soft, nontender, and nondistended. AZALIA drain in place with light serosanguineous fluid with approximately 25 mL overnight. Midline incision covered with dressing. No shattering of the dressing. : No suprapubic tenderness. Urethral catheter in place, attached to a StatLock draining light pink urine. No evidence of any clots. LABORATORY: White blood cell count 6.9, hemoglobin 7.9, hematocrit 26.6,and platelets 268,000. Sodium 143, potassium 4.1, bicarb 106, BUN 12, creatinine 1.1, and glucose 94. ASSESSMENT AND PLAN: Ms. Saunders is a 77-year-old with history of coronary artery disease, aortic valve replacement, aortic aneurysm, hypertension, COPD, overactive bladder, and anxiety, who presented in consultation regarding hematuria to the office earlier this week. The patient is found to have significant hematuria, and was taken to the operating room on Friday for clot burden which appeared to be in her bladder. However, on inspection, she had a large extraperitoneal bladder rupture. She was taken to the operating room yesterday for cystoscopy and left ureteral stent placement, exploratory laparotomy and closure of the extraperitoneal bladder rupture. The patient has been doing well since then. Her catheter has been draining clear pink urine. No evidence of any clots. AZALIA drain is in place with minimal drainage. The patient's most prominent pain is related to the site of her drain. She denies any nausea or vomiting. She has tolerated clear liquids overnight. We will plan to advance her diet to a cardiac diet today. Recommend continue holding her Lovenox until tonight. Can restart tonight, and then consider restarting Coumadin tomorrow. Continue to monitor urine output and tailoring her treatment to her improvement. We will continue with her home medications. Continue pain medication as necessary. She is having some discomfort today. We will continue to monitor. She has oral pain medications as well as IV if necessary. Encouraged her to be ambulatory and up to the side of the bed today, and hopefully can walk in the hallways. We will continue to monitor. Please call with questions or concerns. cc: Amol Dasilva MD [facility]
[2018-07-31] MEDS: MYRBETRIQ E.R. PO SCH (09:24)
[2018-07-31] MEDS: LEXAPRO PO SCH (09:26)
[2018-07-31] MEDS: KEFZOL 1 GM/D5W 1 GM/50 ML IVPB IV SCH ×3 (09:33→23:18)
[2018-07-31] MEDS: LOVENOX SUBQ SCH ×2 (09:33→20:27)
[2018-07-31] MEDS: SYMBICORT 160/4.5 MICROGM INHALER INH SCH ×2 (10:41→19:49)
--- NOTE | 2018-07-31 13:07 | PROGRESS NOTE ---
DATE: 07/31/2018 INTERVAL HISTORY: The patient is status post surgical repair of bladder perforation yesterday. Surgery went well. She did have pain postop but well controlled on current medication. She is still with hematuria. Terrell collection. No other new complaints. No other REVIEW OF SYSTEMS: A 12 point Review of Systems negative except as per interval history. LABORATORY: WBC 6.9, hemoglobin 7.9, hematocrit 26.6, platelets 268,000 and INR 1.23, creatinine 1.1, BUN 12, and potassium 4.1. Mag 1.8. Basic metabolic panel unremarkable. Urine culture with gram-positive cocci. Specifics pending. PHYSICAL EXAMINATION: Vital Signs: T-max 99.2 degrees, pulse 71, blood pressure 135/57, 02 sat 99 percent on 2 L by nasal cannula. General: No acute distress. Vital Signs: As above. HEENT: Normocephalic, atraumatic. Moist mucous membranes. No cervical adenopathy. Cardiovascular: Regular rate and rhythm. There is a slight click and murmur in the left upper sternal border, unchanged. No rubs or gallops noted. Pulmonary: Clear to auscultation bilaterally. No wheezes, rales, or rhonchi. Abdomen: Soft. Minimal expected postop tenderness. Nondistended. Bowel sounds remained decreased. Extremities: Peripheral pulses are intact. Trace lower extremity edema unchanged. Neurologic: Cranial nerves grossly intact. No focal deficits identified. Psychiatric: Normal mood and affect. Awake, alert and oriented x3. Skin: No new rashes or lesions were identified. ASSESSMENT AND PLAN: 1. Bladder perforation: patient with persistent hematuria at home. Cystoscopy on admission showing occult bladder perforation. Status post surgical repair yesterday. Home Coumadin is still being held. Restart Coumadin with Lovenox bridge whenever surgery is okay with us doing that. Terrell remains in place draining dark red urine. 2. Mechanical aortic valve, long-term anticoagulation with Coumadin. INR down after reversal for surgery. Restart Coumadin and then Lovenox bridge as above when urology allows. 3. Anemia. Given the hematuria likely an aspect of acute blood loss anemia, but pretty stable at this point. Continue to monitor blood counts. 4. CKD 3. Currently, creatinine is essentially stable over the last several days. Continue to monitor. 5. Recent abdominal hematoma with stable blood counts as above. She was tolerating the anticoagulation well prior to discharge and at home prior to this admission. 6. Seizure disorder. Continue home medications. No seizure activity noted. 7. Coronary artery disease stable. Monitor. 8. Deep vein thrombosis prophylaxis. SCD's. [facility]
[2018-08-01] MEDS: DUONEB (A & A) INH SCH ×4 (05:55→21:15)
[2018-08-01 06:46] LABS: INR 1.37; PROTIME 17.9 Seconds (11.0-16.0)
[2018-08-01 07:01] LABS: CREATININE 1.1 mg/dL (0.5-0.9); MAGNESIUM 1.6 mg/dL (1.5-2.7); POTASSIUM 3.6 mmol/L (3.5-5.1)
[2018-08-01] MEDS: LR 1,000 ML IV SCH ×4 (08:09→22:26)
[2018-08-01] MEDS: TYGACIL 50 MG in NS 50 ML IV SCH ×2 (08:10→18:56)
[2018-08-01] MEDS: PEPCID PO SCH ×2 (08:13→21:14)
[2018-08-01] MEDS: LASIX PO SCH ×2 (08:13→21:16)
[2018-08-01] MEDS: MIRALAX PO SCH ×2 (08:13→21:13)
[2018-08-01] MEDS: COREG PO SCH ×2 (08:14→21:16)
[2018-08-01] MEDS: COLACE PO SCH ×2 (08:14→21:15)
[2018-08-01] MEDS: ZONEGRAN PO SCH ×2 (08:14→21:15)
[2018-08-01] MEDS: PERIDEX MT SCH ×2 (08:15→21:14)
[2018-08-01] MEDS: MYRBETRIQ E.R. PO SCH (08:15)
[2018-08-01] MEDS: LOVENOX SUBQ SCH ×2 (08:15→21:16)
[2018-08-01] MEDS: LEXAPRO PO SCH (08:15)
[2018-08-01] MEDS: LAMICTAL PO SCH ×2 (08:15→21:14)
[2018-08-01] MEDS: SYMBICORT 160/4.5 MICROGM INHALER INH SCH ×2 (09:27→21:15)
[2018-08-01] MEDS: MORPHINE IV PRN ×2 (12:20→19:01)
--- NOTE | 2018-08-01 13:28 | PROGRESS NOTE ---
DATE: 08/01/2018 INTERVAL HISTORY: The patient's pain remains well controlled and improving overall. Still with some hematuria, but urine appears to be becoming single stayer operator. Urine culture now growing Enterococcus faecium, which this appears to be vancomycin resistant, sensitive only to Vincristine, tigecycline and synergy. REVIEW OF SYSTEMS: Twelve point review of systems negative, except as per interval history. LABS: INR 1.37. Creatinine 1.1, potassium 3.6, sodium 141, glucose 105, Mag 1.6. VITALS: T-max 99.1, pulse 65, respirations 16, blood pressure 143/55, O2 saturation 100% on 2 L by nasal cannula. PHYSICAL EXAMINATION: General: No acute distress. Vitals: As above. HEENT: Normocephalic, atraumatic. Moist mucous membranes. Neck: No cervical adenopathy. Cardiovascular: Regular rate and rhythm. Left upper sternal border click and murmur are unchanged. No rubs or gallops noted. Pulmonary: Clear to auscultation bilaterally. No wheezing, rales or rhonchi. Abdomen: Soft. Minimal expected postop tenderness, improving, nondistended. Bowel sounds are somewhat decreased, but present. Extremities: Peripheral pulses are intact. Trace lower extremity edema, unchanged. Neurologic: Cranial nerves grossly intact. No focal deficits identified. Psychiatric: Normal mood and affect. Awake, alert, oriented x3. Skin: No new rashes or lesions identified. ASSESSMENT AND PLAN: 1. Bladder perforation. Patient with persistent hematuria at home. Cystoscopy on admission showing a cold bladder perforation. Status post surgical repair 07/30. Cleared by Surgery to restart Lovenox. Plan on resuming Coumadin tonight. Terrell remains in place, draining single stayer operator red urine. Urine culture showing vancomycin-resistant Enterococcus. The patient started on tigecycline and Infectious Disease consulted. 2. Urinary tract infection with vancomycin-resistant Enterococcus. Tigecycline and Infectious Disease consultation as above. Oral options will be limited. 3. Mechanical aortic valve. Long-term anticoagulation with Coumadin. INR down after reversal for surgery. Restarted on Lovenox bridge and plan on restarting Coumadin tonight. Continue to monitor INR and hematuria. 4. Anemia, likely acute blood loss anemia on top of anemia of chronic disease. Hemoglobin/hematocrit essentially stable. Continue to monitor. 5. Chronic kidney disease, stage III. Creatinine is stable. Continue to monitor. 6. Recent abdominal hematoma. Blood count stable as above. Has been tolerating anticoagulation. This was associated with highly supratherapeutic INR. 7. Seizure disorder. Continue home medications. No seizure activity noted. 8. Coronary artery disease, stable. Monitor. 9. Deep vein thrombosis prophylaxis. Sequential compression devices.
[2018-08-01] MEDS: COUMADIN PO SCH (21:15)
[2018-08-01] MEDS: ZOCOR PO SCH (21:15)
[2018-08-02] MEDS: DUONEB (A & A) INH SCH ×4 (03:31→21:12)
[2018-08-02 06:44] LABS: CREATININE BODY FLUID 2.2 mg/dL
[2018-08-02 06:51] LABS: INR 1.34; PROTIME 17.6 Seconds (11.0-16.0)
[2018-08-02 06:56] LABS: BASO# 0.02 X1000 (0.0-0.2); BASO% 0.3 % (0.0-0.8); EOS# 0.37 X1000 (0.0-0.7); EOS% 5.5 % (0.0-10.0); HEMATOCRIT 26.3 % (37.0-47.0); HEMOGLOBIN 7.7 g/dL (12.0-16.0); IMM GRAN# 0.03 X1000 (0.0-0.04); IMM GRAN% 0.4 % (0.0-0.5); LYMPH# 0.66 X1000 (1.2-3.4); LYMPH% 9.9 % (20.5-51.1); MCH 27.7 PG (27-31); MCHC 29.3 g/dL (33-37); MCV 94.6 FL (81-99); MONO# 0.86 X1000 (0.11-0.59); MONO% 12.8 % (1.7-9.3); MPV 9.2 FL (7.4-10.4); NEUT# 4.76 X1000 (1.4-6.5); NEUT% 71.1 % (42.2-75.2); PLT 281 X1000 (130-400); RBC 2.78 XMIL (4.2-5.4); RDW 16.6 % (11.5-14.5)
[2018-08-02 07:09] LABS: AGAP 9; BUN 19 mg/dL (8-22); CALCIUM 7.6 mg/dL (8.8-10.2); CHLORIDE 102 mmol/L (98-107); COSMO 280; CREATININE 0.9 mg/dL (0.5-0.9); ESTIMATED GFR > 60; GLUCOSE 96 mg/dL (70-104); MAGNESIUM 1.7 mg/dL (1.5-2.7); POTASSIUM 3.5 mmol/L (3.5-5.1); SODIUM 139 mmol/L (136-145); TCO2 28 mmol/L (25-35)
[2018-08-02] MEDS: PERIDEX MT SCH ×2 (10:34→22:34)
[2018-08-02] MEDS: LOVENOX SUBQ SCH ×2 (10:34→22:34)
[2018-08-02] MEDS: PEPCID PO SCH ×2 (10:35→22:32)
[2018-08-02] MEDS: LAMICTAL PO SCH ×2 (10:35→22:32)
[2018-08-02] MEDS: COREG PO SCH ×2 (10:35→22:35)
[2018-08-02] MEDS: LEXAPRO PO SCH (10:35)
[2018-08-02] MEDS: ZONEGRAN PO SCH ×2 (10:35→22:33)
[2018-08-02] MEDS: LASIX PO SCH ×2 (10:36→22:31)
[2018-08-02] MEDS: MIRALAX PO SCH ×2 (10:36→22:30)
[2018-08-02] MEDS: COLACE PO SCH ×2 (10:36→22:33)
[2018-08-02] MEDS: TYGACIL 50 MG in NS 50 ML IV SCH (10:36)
[2018-08-02] MEDS: MYRBETRIQ E.R. PO SCH (10:36)
[2018-08-02] MEDS: SYMBICORT 160/4.5 MICROGM INHALER INH SCH ×2 (10:58→19:59)
--- NOTE | 2018-08-02 12:46 | INFECTIOUS DISEASE PROGRESS NO ---
DATE: 08/02/2018 DISCUSSION: The patient is very hard of hearing, and I was unable to obtain a history from her. The history I did obtain was from information in the computer. The patient had bled into her bladder, and eventually the bladder perforated, and she has had surgery performed by Dr. Dasilva for that. The patient's CBC shows a white count of 6700, hemoglobin 7.7, and platelet count of 281,000. The creatinine is 0.9, GFR is greater than 60. PAST MEDICAL HISTORY: The patient has had coagulopathy with resulting abdominal wall hematomas. She has had aortic valve disease, which necessitated aortic valve replacement. She has chronic kidney disease, coronary artery disease, hypertension, seizure disorder, asthma, and she had a cardiac arrhythmia which necessitated placement of a pacemaker. She has had bilateral lower extremity deep venous thrombosis, which necessitated a vena cava filter, hyperlipidemia. PAST SURGICAL HISTORY: Positive for aortic valve replacement, thoracic aortic aneurysm stenting, coronary artery bypass grafting, pacemaker implantation, hysterectomy, bilateral shoulder repair. SOCIAL HISTORY: The patient lives with her family. She does not smoke cigarettes, drink alcoholic beverages, or use drugs. ALLERGIES: The patient's only drug allergy is levofloxacin. HOME MEDICATIONS: Include Symbicort inhaler, Coreg, Lexapro, furosemide, Lamictal, Myrbetriq, MiraLAX, simvastatin, trazodone, Coumadin, and Zonegran. PHYSICAL EXAMINATION: Vital Signs: Temperature is 98.9 degrees, pulse 69, respirations 16, blood pressure 172/79. The patient weighs 126 pounds. General: This is a chronically ill-appearing, elderly female. She is in no acute distress. HEENT: She has decreased hearing. She can see near objects. She has white patches on her tongue. Neck: No pain with movement. Lungs: Clear to auscultation. Cardiovascular: Heart rate is regular, systolic murmur. Thorax: The patient has a pacemaker on the left side. The site is not swollen or red. Abdomen: Soft and not tender to light palpation. The incisions have dressings on them. The dressings are intact. There also is a drain present, which currently is draining sanguinous fluid. Neurologic: The patient is awake. As mentioned above, she has decreased hearing. She can move her extremities. There is no tremor. Integument: The patient does not have any skin rash. CONCLUSION: The patient has a urinary tract infection with a multidrug- resistant Enterococcus faecium and yeast. She is status post surgery for a bladder perforation. The patient also has oral candidiasis. RECOMMENDATIONS: I have switched the patient from tigecycline to daptomycin, and I have started the patient on fluconazole. I have started the patient on Mycostatin swish and swallow. I discontinued simvastatin because it can increase the chance of rhabdomyalasis along with daptomycin. Thank you for the consult. cc: Clint Ervin MD [facility]
--- NOTE | 2018-08-02 12:53 | PROGRESS NOTE ---
DATE: 08/02/2018 INTERVAL HISTORY: The patient's hematuria continues to decrease. Reports that she had a good bowel movement this morning. No new complaints. No acute events overnight. REVIEW OF SYSTEMS: A 12 point review of systems is negative except as per interval history. LABS: WBCs 6.7, hemoglobin 10.7, hematocrit 26.3, platelets 281,000. INR 1.34. Basic metabolic panel unremarkable. VITALS: T-max 99.3 degrees, pulse 63, respirations 16, blood pressure 175/63, O2 saturation 94% on 2 L by nasal cannula. PHYSICAL EXAMINATION: General: No acute distress. Vitals: As above. HEENT: Normocephalic, atraumatic. Moist mucous membranes. No cervical adenopathy. Cardiovascular: Left upper sternal border click and murmur unchanged. No rubs or gallops noted. Pulmonary: Clear to auscultation bilaterally. No wheezing, rales, or rhonchi. Abdomen: Soft, nontender, nondistended. Bowel sounds positive. Extremities: Peripheral pulses intact. Trace lower extremity edema, stable. Neurologic: Cranial nerves grossly intact. No focal deficits identified. Psychiatric: Normal mood and affect. Awake, alert, and oriented x3. Skin: No new rashes or lesions identified. ASSESSMENT AND PLAN: 1. Bladder perforation. Patient with persistent hematuria at home. Cystoscopy on admission showing occult bladder perforation, status post surgical repair on 07/30/2018. Back on Lovenox bridge and Coumadin. Terrell remains in place with hematuria, which is slowly improving. Urine culture showing Vancomycin-resistant enterococcus. Patient started on Tygacil and infectious disease consulted. 2. Urinary tract infection with Vancomycin-resistant enterococcus. Tigecycline and infectious disease consultation as above. Oral options appear to be limited. 3. Mechanical aortic valve, long-term anticoagulation with Coumadin. Restarted on Lovenox bridge and Coumadin postoperatively. Monitor INR and hematuria. 4. Anemia, likely acute blood loss anemia on top of anemia of chronic disease. Minimal decrease in blood counts but essentially stable. Continue to monitor. 5. Chronic kidney disease 3. Creatinine is 2. Continue to monitor. 6. Recent abdominal wall hematoma. Blood count as above. Tolerating anticoagulation so far. 7. Seizure disorder. Continue home medication. No seizure activity noted. 8. Coronary artery disease, stable. Monitor. 9. Hypertension. Blood pressure becoming consistently elevated. We will add some Norvasc to patient. 10. Deep vein thrombosis prophylaxis, Lovenox.
[2018-08-02] MEDS: CUBICIN 350 MG in NS 100 ML IV SCH (13:58)
[2018-08-02] MEDS: LR 1,000 ML IV SCH ×2 (13:58→19:42)
[2018-08-02] MEDS: MYCOSTATIN SUSP PO SCH ×3 (13:58→22:33)
[2018-08-02] MEDS: NORVASC PO SCH (14:00)
[2018-08-02] MEDS: COUMADIN PO SCH (22:33)
--- NOTE | 2018-08-03 03:42 | INFECTIOUS DISEASE CONSULT REP ---
DATE: 08/02/2018 ADDENDUM: I have also discontinued the patient's Zocor because it can interact with daptomycin to increase the likelihood of rhabdomyolysis. cc: Clint Ervin MD
[2018-08-03] MEDS: DUONEB (A & A) INH SCH ×4 (04:56→22:40)
--- NOTE | 2018-08-03 09:15 | PROGRESS NOTE ---
DATE: 08/03/2018 SUBJECTIVE: No acute events overnight. The patient states that her pain is well controlled. Her urethral catheter is draining well with clear yellow urine. Denies any fevers or chills. She does describe significant bowel movements and states she is unable to control her bowel function. States she has had 2 bowel movements a day with mostly liquidy bowel movements. Her urethral catheter is in place and drained 1.5 L of clear, yellow urine yesterday. Denies any blood clots. OBJECTIVE: Vitals: Temperature 98.6, heart rate 75, O2 saturation 16%, blood pressure 160/70, oxygen saturation 97% on room air. General: No acute distress. Resting comfortably in bed. Alert and oriented x3. Abdomen: Soft, nontender, nondistended. No palpable masses. Respiratory: Good respiratory effort without audible wheezing or rales. The patient has a nasal cannula in place. : No suprapubic tenderness. Urethral catheter in place draining clear yellow urine. Skin: Midline incision well healing with malgorzata present, no erythema or drainage. AZALIA drain in place with a small amount of serosanguineous fluid. LABORATORY: Laboratories from yesterday showed white blood cell count 6.7, hemoglobin 7.7, hematocrit 26.3, platelets 281,000. Sodium 139, potassium 3.5, chloride 102, bicarb 28, BUN 19, creatinine 0.9, glucose 96. ASSESSMENT AND PLAN: Ms. Saunders is a 77-year-old who is status post cystoscopy and left ureteral stent placement and exploratory laparotomy and repair extraperitoneal bladder rupture on 07/30/2018. The patient has been doing well since then. Her catheter has been draining clear, yellow urine. She is tolerating a diet. Her pain is well controlled. The patient had a positive urine culture growing Enterococcus that is relatively resistant and currently is on daptomycin. The patient remains afebrile with stable white blood cell count. The patient has been followed by Infectious Disease for her UTI. We will continue to monitor. Would continue with indwelling catheter for least 7 to 10 days to allow for optimization of bladder drainage. I will plan to perform a cystogram prior to removal. The patient does have a AZALIA drain in place. We will continue to monitor output. I would keep it at this time. The patient did have a elevated AZALIA creatinine, yesterday it was 2.2, likely residual urine and is relatively low. No increased drainage was seen over the past 3 days. We will continue to monitor this. Encouraged her to be ambulatory. We will hold off on bowel stimulation as she is having multiple loose stools per her report, she only had 2 recorded yesterday. I think that being on the MiraLAX and Colace is not helping her. We will hold it at this time. If she becomes constipated, we can re-initiate. Will continue to monitor, please call with questions or concerns. cc: Amol Dasilva MD [facility]
[2018-08-03] MEDS: SYMBICORT 160/4.5 MICROGM INHALER INH SCH ×2 (10:00→22:40)
[2018-08-03 10:27] LABS: INR 1.34; PROTIME 17.6 Seconds (11.0-16.0)
[2018-08-03] MEDS: PERIDEX MT SCH ×2 (10:34→22:54)
[2018-08-03] MEDS: MYCOSTATIN SUSP PO SCH ×4 (10:34→22:56)
[2018-08-03] MEDS: MYRBETRIQ E.R. PO SCH (10:35)
[2018-08-03] MEDS: LEXAPRO PO SCH (10:35)
[2018-08-03] MEDS: LAMICTAL PO SCH ×2 (10:36→22:55)
[2018-08-03] MEDS: PEPCID PO SCH ×2 (10:36→22:55)
[2018-08-03] MEDS: COREG PO SCH ×2 (10:36→22:58)
[2018-08-03] MEDS: LOVENOX SUBQ SCH ×2 (10:37→22:56)
[2018-08-03] MEDS: NORVASC PO SCH (10:37)
[2018-08-03] MEDS: LASIX PO SCH ×2 (10:37→22:56)
[2018-08-03] MEDS: ZONEGRAN PO SCH ×2 (10:38→22:55)
[2018-08-03] MEDS: LR 1,000 ML IV SCH (10:40)
[2018-08-03 10:45] LABS: BASO# 0.01 X1000 (0.0-0.2); BASO% 0.2 % (0.0-0.8); EOS# 0.14 X1000 (0.0-0.7); EOS% 2.7 % (0.0-10.0); HEMATOCRIT 26.2 % (37.0-47.0); HEMOGLOBIN 7.7 g/dL (12.0-16.0); IMM GRAN# 0.02 X1000 (0.0-0.04); IMM GRAN% 0.4 % (0.0-0.5); LYMPH# 0.72 X1000 (1.2-3.4); LYMPH% 13.8 % (20.5-51.1); MCH 27.5 PG (27-31); MCHC 29.4 g/dL (33-37); MCV 93.6 FL (81-99); MONO# 0.74 X1000 (0.11-0.59); MONO% 14.1 % (1.7-9.3); MPV 8.9 FL (7.4-10.4); NEUT% 68.8 % (42.2-75.2); PLT 284 X1000 (130-400); RDW 16.5 % (11.5-14.5); WBC 5.23 X1000 (4.8-10.8)
[2018-08-03] MEDS: CUBICIN 350 MG in NS 100 ML IV SCH (12:13)
--- NOTE | 2018-08-03 13:03 | PROGRESS NOTE ---
DATE: 08/03/2018 INTERVAL HISTORY: Still with some slight hematuria but continues to improve. The patient no longer constipated, but now having diarrhea. Laxatives discontinued. No other new complaints. No acute events overnight. REVIEW OF SYSTEMS: A 12 point review of systems negative except as per Interval History. LABORATORY DATA: WBC 5.23, hemoglobin 7.7, hematocrit 26.2, platelets 284. INR 1.34. VITALS: Temperature maximum 99.1 degrees, pulse 73, respirations 16, blood pressure 160/70 with O2 saturation 99% on 2 L by nasal cannula. PHYSICAL EXAMINATION: General: No acute distress. Vitals: As above. HEENT: Normocephalic, atraumatic. Moist mucus membranes. Neck: No cervical adenopathy. Cardiovascular: Left upper sternal click and murmur unchanged. No rubs or gallops noted. Pulmonary: Clear to auscultation bilaterally. No wheezing, rales, or rhonchi. Abdomen: Soft, nontender, nondistended. Bowel sounds positive. Drain remains in place. Extremities: Peripheral pulses intact. Trace lower extremity edema unchanged. Neurological: Cranial nerves grossly intact. No focal deficits identified. Psychiatric: Normal mood and affect. Asleep, but easily arousable. Oriented x3. Skin: No new rashes or lesions identified. ASSESSMENT AND PLAN: 1. Bladder perforation. Patient with persistent hematuria at home. Cystoscopy on admission showing occult bladder perforation. The patient is status post surgical repair on 07/30/2018. The patient is back on Lovenox bridging with Coumadin. Patient remains in place with hematuria which continues to slowly improve. Urine culture showing VRE. Patient initially started on tigecycline, now transitioned to daptomycin as per Infectious Disease recommendations. As per Urology, Follistim will remain in place for 7 to 10 days, and they will perform a cystogram prior to removal. Abdominal AZALIA drain still in place. 2. Urinary tract infection (UTI) with vancomycin-resistant Enterococcus (VRE). Antibiotics as above, but will await further ID recommendations. 3. Mechanical aortic valve on long-term anticoagulation with Coumadin. Patient restarted on Lovenox bridging with Coumadin. INR not really increasing over the last couple days, but given her recent markedly supratherapeutic INR with a slightly higher dose, we will proceed with caution in increasing her Coumadin. 4. Anemia, likely acute blood loss anemia on top of anemia of chronic disease. Counts largely stable over the last few days. Continue to monitor. 5. Recent abdominal wall hematoma. Blood counts as above. Tolerating anticoagulation so far. 6. Seizure disorder. Continue home medication. No seizure activity noted. 7. Coronary artery disease, stable. Monitor. 8. Hypertension. Blood pressure still with occasional mild to moderate elevations, but control improved with the addition of Norvasc. 9. Deep vein thrombosis (DVT) prophylaxis. Lovenox.
--- NOTE | 2018-08-03 14:40 | INFECTIOUS DISEASE CONSULT REP ---
DATE: 08/03/2018 PRESENT ILLNESS: The patient has a multiple drug resistant Enterococcus and yeast urinary tract infection. The patient is status post repair of a perforated urinary bladder. The patient also has oral candidiasis. MEDICATIONS: The patient is receiving daptomycin 350 mg daily, nystatin swish and swallow, and fluconazole. PHYSICAL EXAMINATION: Vital Signs: Temperature is 98.2 degrees, pulse 65, respirations 20, blood pressure 129/52. General: This is a somewhat ill-appearing, elderly female. She is under no acute distress. Head, eyes, ears, nose, throat: She can see near objects. She has decreased hearing. She does not have any white patches on her tongue today. Neck: No pain with movement. Lungs: Clear to auscultation. Cardiovascular: Regular heart rate with a systolic murmur. Thorax: The patient has a pacemaker in place on the left side. The site is not swollen or draining. Abdomen: Soft and not tender to light palpation. The patient's incision and drain are intact. Neurologic: Patient is awake. She can move her extremities. There is no tremor. She talks in a coherent fashion. LABORATORY AND X-RAY: Creatinine 0.9. GFR is greater than 60. CBC shows a white count of 5,230, hemoglobin 7.7, and platelet count 284,000. There is no new radiographic study. ASSESSMENT AND PLAN: The patient is status post repair of perforated bladder. The patient has an Enterococcal and yeast urinary tract infection. My plan is to continue daptomycin, fluconazole, and nystatin swish and swallow. The patient also had oral candidiasis. COMORBIDITIES: The patient has a coagulopathy and developed bleeding into the abdominal wall and then into the bladder and the bladder apparently perforated. She has aortic valve disease with an aortic valve replacement. The patient also has chronic kidney disease, seizure disorder, and asthma. The patient had an arrhythmia which required placement of a pacemaker. cc: Clint Ervin MD
[2018-08-03] MEDS: DIFLUCAN PO SCH (14:47)
[2018-08-03] MEDS: COUMADIN PO SCH (22:55)
[2018-08-04] MEDS: DUONEB (A & A) INH SCH ×4 (03:26→23:18)
[2018-08-04] MEDS: LR 1,000 ML IV SCH ×3 (03:38→18:34)
[2018-08-04 06:12] LABS: INR 1.45; PROTIME 18.7 Seconds (11.0-16.0)
[2018-08-04 06:18] LABS: BASO# 0.01 X1000 (0.0-0.2); BASO% 0.2 % (0.0-0.8); EOS# 0.27 X1000 (0.0-0.7); EOS% 5.4 % (0.0-10.0); HEMATOCRIT 25.9 % (37.0-47.0); HEMOGLOBIN 7.7 g/dL (12.0-16.0); IMM GRAN# 0.02 X1000 (0.0-0.04); IMM GRAN% 0.4 % (0.0-0.5); LYMPH# 0.81 X1000 (1.2-3.4); LYMPH% 16.1 % (20.5-51.1); MCH 27.8 PG (27-31); MCHC 29.7 g/dL (33-37); MCV 93.5 FL (81-99); MONO# 0.82 X1000 (0.11-0.59); MONO% 16.3 % (1.7-9.3); NEUT% 61.6 % (42.2-75.2); PLT 286 X1000 (130-400); RBC 2.77 XMIL (4.2-5.4); RDW 16.5 % (11.5-14.5); WBC 5.03 X1000 (4.8-10.8)
[2018-08-04 08:07] LABS: CREATININE BODY FLUID 1.1 mg/dL
--- NOTE | 2018-08-04 08:12 | PROGRESS NOTE ---
DATE: 08/04/2018 SUBJECTIVE: No acute events overnight. The patient resting comfortably this morning. The patient is tolerating a diet. Had 2 bowel movements yesterday. States her pain has been well controlled. Urethral catheter draining clear, yellow urine. No evidence of any clots or hematuria. The patient remains on antibiotics and remains afebrile. OBJECTIVE: Vital Signs: Temperature 98 degrees, heart rate 83, blood pressure 116/65, oxygen saturation 98% on nasal cannula. General: No acute distress. Resting comfortably in bed. Alert and oriented x3. Respiratory: Good respiratory effort without audible wheezing or rales on 2 L nasal cannula. Abdomen: Soft, nontender, nondistended. No palpable masses or hepatosplenomegaly. : No suprapubic tenderness. Urethral catheter in place draining clear yellow urine. Skin: AZALIA drain in place in left lower quadrant with minimal drainage. Staple line over the midline with no evidence of any drainage or erythema. LABS: White blood cell count 5, hemoglobin 7.7, hematocrit 25.9, platelets 286,000. ASSESSMENT AND PLAN: Ms. Saunders is a 77-year-old who is status post cystoscopy and left ureteral stent placement, exploratory laparotomy and repair of extraperitoneal bladder rupture on 07/30/2018. The patient has overall done well since then. Her catheter has been draining clear yellow urine. She is tolerating diet and has had good pain control. The patient is being treated for enterococcus urinary tract infection with daptomycin as well as fluconazole for yeast in her urine. The patient is being followed by Infectious Disease for this. The patient needs to continue with urethral catheter for at least 7 to 10 more days to optimize bladder drainage. We will perform a cystogram prior to removal. AZALIA creatinine was sent this morning, awaiting results. If decreased, will consider removal. We will continue to monitor. Encouraged her to be ambulatory today. Still having bowel movements, but seemed to be more solid yesterday, 2 recorded for yesterday. The patient denies any abdominal pain or discomfort. She was up to the chair and working with physical therapy yesterday. We will continue to monitor her for discharge planning, approaching discharge goals from urology standpoint. Please call with questions or concerns. cc: MD Eric Stewart MD [facility]
[2018-08-04] MEDS: SYMBICORT 160/4.5 MICROGM INHALER INH SCH ×2 (09:09→20:04)
[2018-08-04] MEDS: PERIDEX MT SCH ×2 (10:09→23:01)
[2018-08-04] MEDS: LASIX PO SCH ×2 (10:09→23:01)
[2018-08-04] MEDS: MYCOSTATIN SUSP PO SCH ×5 (10:09→23:01)
[2018-08-04] MEDS: LOVENOX SUBQ SCH ×2 (10:09→23:00)
[2018-08-04] MEDS: LEXAPRO PO SCH (10:09)
[2018-08-04] MEDS: DIFLUCAN PO SCH (10:10)
[2018-08-04] MEDS: LAMICTAL PO SCH ×2 (10:10→23:00)
[2018-08-04] MEDS: ZONEGRAN PO SCH ×2 (10:10→23:01)
[2018-08-04] MEDS: NORVASC PO SCH (10:10)
[2018-08-04] MEDS: MYRBETRIQ E.R. PO SCH (10:10)
[2018-08-04] MEDS: PEPCID PO SCH ×2 (10:11→23:01)
[2018-08-04] MEDS: COREG PO SCH ×2 (10:11→23:03)
[2018-08-04] MEDS: CUBICIN 350 MG in NS 100 ML IV SCH (11:49)
--- NOTE | 2018-08-04 14:20 | PROGRESS NOTE ---
DATE: 08/04/2018 SUBJECTIVE: The patient is resting comfortably in bed. OBJECTIVE: Vital signs: Temperature 98.2 degrees, pulse 72, respiratory 21, blood pressure is 133/57, oxygen saturation is 100%. HEENT: She is atraumatic, normocephalic. Cardiovascular: S1, S2. Respiratory: Has evidence of good entry bilaterally. Abdomen: Soft, nontender. No masses felt. Extremities: No evidence of significant edema. Central nervous system: No obvious focal deficit noted. LABS: WBC is 5.03, hematocrit 25.9, with a platelet count of 286,000. INR is 1.43. Magnesium level is 1.8. ASSESSMENT AND PLAN: 1. Bladder perforation. Status post surgical repair on 07/30/2018. Urology team following. 2. Urinary tract infection secondary to vancomycin-resistant Enterococcus. Continue antibiotics per recommendation of ID. 3. Mechanical aortic valve, on long-term anticoagulation. Monitor PT/INR. I would like to see the INR between 2.5 to 3.5. 4. Anemia. Follow up on hemoglobin and hematocrit. Transfuse PRBCs as needed. 5. Recent history of abdominal hematoma. Aware. Will continue to follow the patient clinically. 6. Seizure disorder. Continue antiepileptic drugs. Maintain patient on seizure precaution. 7. Coronary artery disease. Stable. Asymptomatic. 8. Hypertension. Continue current antihypertensive regimen. 9. Deep vein thrombosis prophylaxis. The patient is on Lovenox. cc: Eric Guardado MD
--- NOTE | 2018-08-04 16:28 | INFECTIOUS DISEASE PROGRESS NO ---
DATE: 08/04/2018 PRESENT ILLNESS: The patient has a multiple drug-resistant Enterococcus and yeast urinary tract infection. The patient is status post repair of a perforated urinary bladder. The patient also has oral candidiasis which is clearing nicely. MEDICATIONS: The patient receives daptomycin 350 mg daily, fluconazole 400 mg daily for the past 2 days. The patient also is getting nystatin swish and swallow. PHYSICAL EXAMINATION: Vital Signs: Temperature is 98.2 degrees, pulse 72, respirations 21, blood pressure 133/57. General: This is an ill-appearing elderly female. She is under no acute distress. Head, eyes, ears, nose, and throat: She can see near objects. She has decreased hearing. The white patches on her tongue have cleared. Neck: No pain with movement. Lungs: Clear to auscultation. Cardiovascular: Heart rate is regular. There is present a systolic murmur. Thorax: The patient has a pacemaker on the left side. The pacemaker site is not swollen or red. Abdomen: Soft and not tender to light palpation. There is an incision which is intact as well as the patient's drain is present with minimal drainage. Neurologic: The patient is arousable. She can move her extremities. There is no tremor. DIAGNOSTIC STUDIES: CBC today shows a white count of 5080, hemoglobin 7.7, and platelet count 286,000. There is no other new lab work for today and no radiographic study for today. ASSESSMENT AND PLAN: 1. The patient has urinary tract infection. 2. She is status post repair of a perforated urinary bladder. 3. The patient also has oral candidiasis. I plan to continue the current medications. COMORBIDITIES: 1. The patient has a coagulopathy which caused her to have bleeding in the abdominal wall and into the bladder. 2. The patient has had an aortic valve replacement. 3. The patient has chronic kidney disease. 4. Seizure disorder. 5. Asthma. 6. The patient has a pacemaker in place. 7. She also has a murmur. cc: MD Eric Fontanez MD
[2018-08-04] MEDS: COUMADIN PO SCH (23:01)
[2018-08-05] MEDS: DUONEB (A & A) INH SCH ×3 (03:38→16:16)
[2018-08-05 05:51] LABS: CALCIUM 8.2 mg/dL (8.8-10.2); CREATININE 1.2 mg/dL (0.5-0.9); POTASSIUM 2.8 mmol/L (3.5-5.1)
[2018-08-05 06:22] LABS: BASO# 0.02 X1000 (0.0-0.2); BASO% 0.3 % (0.0-0.8); EOS# 0.25 X1000 (0.0-0.7); HEMATOCRIT 26.1 % (37.0-47.0); HEMOGLOBIN 7.9 g/dL (12.0-16.0); IMM GRAN# 0.03 X1000 (0.0-0.04); IMM GRAN% 0.5 % (0.0-0.5); LYMPH# 0.97 X1000 (1.2-3.4); LYMPH% 15.6 % (20.5-51.1); MCH 28.3 PG (27-31); MCHC 30.3 g/dL (33-37); MCV 93.5 FL (81-99); MONO# 0.99 X1000 (0.11-0.59); MONO% 15.9 % (1.7-9.3); NEUT# 3.96 X1000 (1.4-6.5); NEUT% 63.7 % (42.2-75.2); PLT 265 X1000 (130-400); RBC 2.79 XMIL (4.2-5.4); RDW 16.4 % (11.5-14.5); WBC 6.22 X1000 (4.8-10.8)
--- NOTE | 2018-08-05 07:11 | PROGRESS NOTE ---
DATE: 08/05/2018 SUBJECTIVE: Postop from cystoscopy with left ureteral stent placement and exploratory laparotomy, repair of extraperitoneal bladder rupture. Overall, patient has been doing well. Her AZALIA drain was removed yesterday after AZALIA creatinine returned at 1.1. She denies any pain this morning. She had 1 bowel movement yesterday, is tolerating a diet. Has been ambulatory with physical therapy. Denies any nausea or vomiting. OBJECTIVE: Vital Signs: Temperature 98 degrees, heart rate 72, blood pressure 160/52, oxygen saturation 97% on room air. General: No acute distress. Resting comfortably in bed, alert and orient x3. Respiratory: Good respiratory effort without audible wheezing or rales. Abdomen: Soft, nontender, nondistended. No palpable masses. : No suprapubic tenderness. Urethral catheter in place with clear yellow urine. Skin: Midline incision well healed with malgorzata present. The previous AZALIA site covered with bandage. No evidence of any shadowing. LABS: White blood cell count 6.2, hemoglobin 7.9, hematocrit 26.1, platelets 265,000. Sodium 141, potassium 2.8, chloride 102, bicarb 30, BUN 9, creatinine 1.2, glucose 106. ASSESSMENT AND PLAN: Ms. Saunders is a 77-year-old with multiple comorbidities who is postoperative from cystoscopy with left ureteral stent placement and exploratory laparotomy, repair of extraperitoneal bladder rupture on 07/30/2018. The patient clinically has improved. Her AZALIA was removed yesterday. She is tolerating a diet. She was weaned off oxygen yesterday and appears to be improving significantly. She is ambulatory with physical therapy with good pain control. From a Urology standpoint, likely can be discharged. The patient will need to have a cystogram prior to catheter removal. We plan to do this later next week. We will continue to monitor. The patient needs continued IV antibiotics per Infectious Disease recommendations. Please call with questions or concerns. cc: MD Eric Stewart MD MTDD
[2018-08-05] MEDS: LR 1,000 ML IV SCH (08:16)
[2018-08-05] MEDS: SYMBICORT 160/4.5 MICROGM INHALER INH SCH ×2 (09:33→20:28)
[2018-08-05] MEDS: COREG PO SCH (09:36)
[2018-08-05] MEDS: DIFLUCAN PO SCH (09:36)
[2018-08-05] MEDS: MYCOSTATIN SUSP PO SCH ×3 (09:37→18:18)
[2018-08-05] MEDS: LAMICTAL PO SCH (09:38)
[2018-08-05] MEDS: ZONEGRAN PO SCH (09:38)
[2018-08-05] MEDS: LASIX PO SCH (09:38)
[2018-08-05] MEDS: NORVASC PO SCH (09:38)
[2018-08-05] MEDS: MYRBETRIQ E.R. PO SCH (09:39)
[2018-08-05] MEDS: PEPCID PO SCH (09:39)
[2018-08-05] MEDS: LOVENOX SUBQ SCH (09:39)
[2018-08-05] MEDS: LEXAPRO PO SCH (09:39)
[2018-08-05] MEDS: PERIDEX MT SCH (09:43)
[2018-08-05] MEDS: CUBICIN 350 MG in NS 100 ML IV SCH (12:19)
--- NOTE | 2018-08-05 13:52 | INFECTIOUS DISEASE PROGRESS NO ---
DATE: 08/05/2018 PRESENT ILLNESS: Ms. Saunders has a vancomycin-resistant Enterococcus and funguria. She is status post repair of a perforated bladder. There is also an oral candidiasis, which is resolving. MEDICATIONS: Today is day 3 of daptomycin 350 mg IV daily, fluconazole 400 mg by mouth daily, and nystatin swish and swallow 4 times a day. PHYSICAL EXAMINATION: Vital Signs: Temperature is 98.8 degrees, pulse rate 74, respiratory rate 16, blood pressure 115/49, O2 saturation is 97% on room air. General: This is an elderly, chronically ill-appearing female. She is sitting up in the bed currently, in no acute distress. HEENT: Atraumatic, normocephalic. Oral mucous membranes are pink and moist. Conjunctivae are pale. Neck: Supple. Trachea is midline. Cardiovascular: She has a harsh systolic murmur. There is a pacemaker noted to the left side of her chest. That site is without any edema or erythema. Respiratory: Lung sounds are clear to auscultation bilaterally. Abdomen: Soft, round, and nontender. Bowel sounds are active. There is a lower abdominal midline incision with malgorzata intact. The patient denies any pain to the area. There are some mild pink areas noted to the incision. It is dry without any drainage or edema. Neurologic: She is awake, alert, and slow to respond to questions. She is appropriate and oriented, and following commands without difficulty. She is able to move all her extremities in the bed with generalized weakness noted. LABORATORY AND X-RAY: Today, her white count is 6.22, hemoglobin 7.9, platelet count 265,000. Creatinine is 1.2. GFR of 44. Her creatine kinase is 26. Urine culture has grown Enterococcal faecium which is multidrug resistant, as well as a yeast. No imaging reports today. ASSESSMENT AND PLAN: Ms. Saunders is being treated for a vancomycin-resistant enterococcal urinary tract infection and funguria, status post repair of a perforated urinary bladder. She is receiving daptomycin and fluconazole, which we will continue at this time. She also has an oral candidiasis, which has improved significantly. We will continue nystatin swish and swallow. The patient is concerned about going home, and likes the idea of going to a specialty hospital for the completion of her treatment. She has spoken to her daughter, and they agree to sending her to [facility]. I have written out orders for daptomycin and labs to be followed. These plans have been discussed with and recommended by Dr. Ervin. COMORBIDITIES: For Ms. Saunders include chronic kidney disease, seizure disorder, pacemaker insertion, and anticoagulation therapy. Dictated by CHAY Diego for Clint Ervin MD This chart was documented by, CHAY Diego and accurately reflects the services performed, treatment plan and medical decisions as attested by the providers signature Clint Ervin MD. cc: Clint Ervin MD [facility] HOSPITALMarva
[2018-08-05] MEDS: POTASSIUM CHLORIDE 20 MEQ/SWI 20 MEQ/100 ML IVPB IV SCH ×2 (15:10→18:17)
--- NOTE | 2018-08-05 16:27 | PROGRESS NOTE ---
DATE: 08/05/2018 SUBJECTIVE: The patient is resting in bed not in any obvious distress. OBJECTIVE: Vital Signs: Temperature is 98.1, pulse 72, respirations 14, and blood pressure is 114/79. Oxygen saturation is 97%. HEENT: Patient is atraumatic, normocephalic. Cardiovascular: S1, S2. Respiratory: Air entry bilaterally. Abdomen: Soft and nontender. No masses felt. Extremities: No evidence of significant edema. Central Nervous System: No evidence of focal deficit. LABORATORY: WBC 6.23, hematocrit 26.1 with platelet count of 265,000. Sodium is 141, potassium is 2.8, chloride is 102, and bicarb 30. BUN is INC 00:01:42> . Creatinine is 1.2. ASSESSMENT AND PLAN: 1. Bladder perforation. The patient is status post surgical repair 07/30/2018. Urology Team following. 2. Urinary tract infection secondary to vancomycin resistant enterococcus. Continue antibiotics as recommended by ID. 3. Mechanical aortic valve with long-term anticoagulation. Monitor PT/INR. INR now between 2.5 and 3.5. 4. Anemia. Follow up on hemoglobin and hematocrit. Transfuse PRBC's as needed. 5. Hypokalemia. Replace potassium level and check mag level. 6. Recent history of abdominal hematoma. Follow patient clinically. 7. Seizure. Continue antiepileptic drugs. Maintain patient [*]. 8. Coronary artery disease. Stable. Asymptomatic. 9. Hypertension. Continue current antihypertensive regimen. 10. DVT thrombosis prophylaxis. The patient is on Lovenox/warfarin. cc: Eric Guardado MD
[2018-08-05] MEDS ORDERED: COUMADIN PO SCH (21:00)
[2018-08-06] MEDS: DUONEB (A & A) INH SCH ×3 (00:04→10:00)
[2018-08-06] MEDS: LAMICTAL PO SCH ×2 (00:14→08:11)
[2018-08-06] MEDS: ZONEGRAN PO SCH ×2 (00:15→08:11)
[2018-08-06] MEDS: COREG PO SCH ×2 (00:15→08:10)
[2018-08-06] MEDS: PEPCID PO SCH ×2 (00:16→08:11)
[2018-08-06] MEDS: KLOR-CON PO SCH ×2 (00:16→08:12)
[2018-08-06] MEDS: MYCOSTATIN SUSP PO SCH ×2 (00:16→11:55)
[2018-08-06] MEDS: LR 1,000 ML IV SCH ×2 (00:16→11:58)
[2018-08-06] MEDS: PERIDEX MT SCH ×2 (00:16→08:11)
[2018-08-06] MEDS: LOVENOX SUBQ SCH ×2 (00:17→08:11)
[2018-08-06] MEDS: LASIX PO SCH ×2 (00:18→08:11)
[2018-08-06 05:42] LABS: BASO# 0.02 X1000 (0.0-0.2); BASO% 0.3 % (0.0-0.8); EOS# 0.25 X1000 (0.0-0.7); EOS% 3.9 % (0.0-10.0); HEMATOCRIT 27.4 % (37.0-47.0); HEMOGLOBIN 8.1 g/dL (12.0-16.0); IMM GRAN# 0.03 X1000 (0.0-0.04); IMM GRAN% 0.5 % (0.0-0.5); LYMPH# 0.81 X1000 (1.2-3.4); LYMPH% 12.8 % (20.5-51.1); MCH 27.6 PG (27-31); MCHC 29.6 g/dL (33-37); MCV 93.5 FL (81-99); MONO# 0.77 X1000 (0.11-0.59); MONO% 12.1 % (1.7-9.3); MPV 8.8 FL (7.4-10.4); NEUT# 4.46 X1000 (1.4-6.5); NEUT% 70.4 % (42.2-75.2); PLT 281 X1000 (130-400); RBC 2.93 XMIL (4.2-5.4); RDW 16.7 % (11.5-14.5); WBC 6.34 X1000 (4.8-10.8)
[2018-08-06 05:51] LABS: AGAP 10; ALB/GLOB RATIO 0.8; ALBUMIN 2.5 g/dL (3.5-5.0); ALKALINE PHOSPHATASE 84 U/L (32-104); BUN 6 mg/dL (8-22); CALCIUM 8.1 mg/dL (8.8-10.2); CHLORIDE 106 mmol/L (98-107); COSMO 285; CREATININE 1.1 mg/dL (0.5-0.9); ESTIMATED GFR 48; GLUCOSE 109 mg/dL (70-104); GOT 9 U/L (10-30); GPT < 5 U/L (10-36); POTASSIUM 3.9 mmol/L (3.5-5.1); SODIUM 144 mmol/L (136-145); TCO2 28 mmol/L (25-35); TOTAL BILIRUBIN 0.41 mg/dL (0.20-1.00); TOTAL PROTEIN 5.7 g/dL (6.3-8.3)
[2018-08-06] MEDS: LEXAPRO PO SCH (08:10)
[2018-08-06] MEDS: MYRBETRIQ E.R. PO SCH (08:10)
[2018-08-06] MEDS: NORVASC PO SCH (08:11)
[2018-08-06] MEDS: DIFLUCAN PO SCH (08:11)
[2018-08-06] MEDS: SYMBICORT 160/4.5 MICROGM INHALER INH SCH (10:00)
[2018-08-06 11:48] VITALS: BP 108/46
[2018-08-06] MEDS: CUBICIN 350 MG in NS 100 ML IV SCH (11:55)
--- NOTE | 2018-08-06 12:51 | PROGRESS NOTE ---
DATE: 08/06/2018 SUBJECTIVE: Postop from cystoscopy and left ureteral stent placement, and exploratory laparotomy with repair of bladder perforation. The patient has been doing well. She has had good pain control with no evidence of any pain for the past several days. Her catheter is draining well with clear yellow urine. The patient is slightly more somnolent today. She had received a dose of Zofran prior to evaluation due to some nausea. In talking with her, she denies any nausea currently. She remains afebrile. OBJECTIVE: Vital Signs: Temperature 98.4 degrees, blood pressure 108/46, pulse rate 61, oxygen saturation 94% on room air. General: No acute distress. Resting comfortably in bed, slightly more somnolent than prior evaluations. Respiratory: Good respiratory effort without audible wheezing or rales. Abdomen: Soft, nontender, nondistended. : No suprapubic tenderness. No CVA tenderness. Urethral catheter in place, draining clear yellow urine. Skin: Prior AZALIA site is well-healing. Midline incision closed with malgorzata with no evidence of any drainage or erythema. Labs: White blood cell count 6.4, hemoglobin 8.1, hematocrit 27.4, platelets 281,000. Sodium 144, potassium 3.9, chloride 106, bicarb 28, BUN 6, creatinine is 1.1, glucose 109. ASSESSMENT AND PLAN: Ms. Saunders is a 77-year-old with multiple comorbidities who is postoperative from cystoscopy and left ureteral stent placement, and exploratory laparotomy and repair of extraperitoneal bladder rupture. Overall, the patient has been doing well. She seems to have improved from a urologic standpoint. The patient is slightly more somnolent today, but had received a dose of Zofran just prior to this. She was having some nausea but denies any nausea at this time. The patient has good urinary output with clear yellow urine. She had a bowel movement yesterday and denies any abdominal pain. All her labs appear to be within normal limits. Clinically, she appears to be stable. The patient will ultimately need a cystogram in approximately 1 week and her catheter removed at that time. The patient has malgorzata which we will plan to remove in followup. The patient also has a left ureteral stent that we could consider removal at the time of the removal of her catheter. I discussed this with the patient. The patient is tentatively scheduled to go to rehabilitation. We will continue to monitor clinically. Please call with questions or concerns. cc: Amol Dasilva MD MTDD
--- NOTE | 2018-08-06 13:06 | DISCHARGE SUMMARY ---
ADMISSION DATE: 07/28/2018 DISCHARGE DATE: PRINCIPAL DIAGNOSIS: Bladder perforation status post repair. SECONDARY DIAGNOSES: 1. Mechanical aortic valve, on Coumadin. 2. Chronic kidney disease. 3. Coronary artery disease. 4. Hypertension. 5. Seizure disorder. 6. Bronchial asthma. 7. Status post pacemaker implantation. 8. 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 9. Urinary tract infection secondary to vancomycin-resistant Enterococcus faecium, as well as funguria. 10. Recent history of abdominal wall hematoma. DISCHARGE MEDICATIONS: Include the following: Lovenox 40 subcutaneous q.12 h., Coreg 3.125 mg p.o. twice a day, Zonegran 200 mg p.o. at bedtime, Lamictal 100 mg p.o. in the morning,zonisamide 100 mg p.o. daily, Symbicort 160/4.5, 2 puffs twice a day, simvastatin 40 mg p.o. daily, Lasix 20 mg p.o. twice a day, warfarin 4 mg p.o. at bedtime, MiraLAX 17 g twice a day, Lamictal 150 mg at bedtime, mirabegron 25 g p.o. once a day, trazodone 50 mg at bedtime, Lexapro 20 mg p.o. once a day. CONSULTATIONS DONE DURING THIS HOSPITAL STAY: Include Dr. Amol Dasilva, Urology; Dr. Wil Ervin, Infectious Disease. SPECIAL PROCEDURES DONE DURING THIS HOSPITAL STAY: Include the following: Cystoscopy with left ureteral stent placement as well as exploratory laparotomy with repair of extraperitoneal bladder rupture. This was done on 07/30/2018. HOSPITAL COURSE: Mrs. Yamileth Saunders is a 77-year-old female. Patient was admitted to the hospital after she had cystoscopic examination as an outpatient and was found to have some form of bladder perforation. This was subsequently repaired by the Urology team. On 07/30/2018, she did have a cystoscopy with left ureteral stent placement as well as exploratory laparotomy with repair of extraperitoneal bladder rupture. The patient seemed to have done well postoperatively. She was found to have vancomycin-resistant Enterococcus faecium, and she is currently receiving daptomycin per recommendation of the Infectious Disease team. At this time, the patient is clinically stable. She can be transferred to [facility] where she will continue to recuperate. The patient's diet to be healthy heart. Activity will be as tolerated. She will need PT as well as OT evaluations. Of note, she does have a mechanical aortic valve, and she has been on long-term anticoagulation. She will be on a combination of Coumadin as well as Lovenox, and we would like to keep in the INR between 2.5 and 3.5. Once this INR is achieved, the patient's Lovenox can be discontinued. Also of note, she does have seizure disorder so she will also need to be on seizure precaution as well. DISCHARGE PHYSICAL EXAMINATION: Vital Signs: During my evaluation today, her vitals were as follows: Temperature 98.4 degrees, pulse 61, respiratory rate 16, blood pressure 108/46, oxygen saturation 94%. HEENT: Atraumatic, normocephalic. Cardiovascular System: S1, S2. Respiratory System: Has evidence of good air entry bilaterally. Abdomen: Soft, nontender. No masses felt. Extremities: No evidence of significant edema. Central nervous system: No obvious focal deficits. PLAN: Discharge to snf facility today. Take discharge medications as noted above. Diet will be healthy heart. Activity will be as tolerated. She will need PT as well as OT evaluations. cc: Eric Guardado MD
== END 2018-08-06 14:52 | DRG 654 ==
LOC: OR 15:08 → SUATTDRO 15:25 → DIRADM 15:25 → 4N 17:39
PROVIDERS: ATTEND Internal Medicine
CPT/HCPCS: 51701; 71010; 71045; 76000; 80048; 80053; 81001; 82550; 82570; 83735; 85014; 85018; 85025; 85027; 85610; 85730; 86850; 86900; 86901; 86920; 87077; 87088; 87186; 94640; 94760; 94761; 94799; 97116; 97162; 97530; 99283; A9270; J0330; J0690; J0878; J1100; J1170; J1650; J2270; J2405; J3010; J3243; J3430; J3480; J7120; P9612; Q9966; Q9967